=== PATIENT | female | born 1945 | race Caucasian/White ===

== ENCOUNTER → 2018-04-01 | Outpatient (REF) ==
[2018-04-01 14:02] LABS: HEMATOCRIT 32.2 % (36.0-47.0); HEMOGLOBIN 10.6 g/dl (12.0-15.5); MEAN CORPUSCULAR HEMOGLOBIN 29.1 pg (27.0-33.0); MEAN CORPUSCULAR HGB CONC 32.9 g/dl (32.0-36.5); MEAN CORPUSCULAR VOLUME 88.5 fl (80.0-96.0); PLATELET COUNT, AUTOMATED 230 10^3/uL (150-450); RED BLOOD COUNT 3.64 10^6/uL (4.00-5.40); RED CELL DISTRIBUTION WIDTH 12.9 % (11.5-14.5)
[2018-04-01 15:18] LABS: ANION GAP 10 MEQ/L (8-16); BLOOD UREA NITROGEN 17 MG/DL (7-18); CALCIUM LEVEL 7.8 MG/DL (8.8-10.2); CARBON DIOXIDE LEVEL 26 MEQ/L (21-32); CHLORIDE LEVEL 103 MEQ/L (98-107); CREATININE FOR GFR 0.94 MG/DL (0.55-1.30); GLOMERULAR FILTRATION RATE > 60.0 (>39); GLUCOSE, FASTING 329 MG/DL (70-100); POTASSIUM SERUM 4.1 MEQ/L (3.5-5.1); SODIUM LEVEL 139 MEQ/L (136-145)
== END ==
DX: E03.9 Hypothyroidism, unspecified (principal)

== ENCOUNTER → 2018-04-07 | Outpatient (REF) | payer MEDICAID, MEDICARE, SELFPAY ==
[~2018-04-07] MED LIST: ASPIRIN PO; ATENPOW PO; CRES20TA PO; FURO20TA PO; GLIM2TAB PO; ISOSPOW PO; KLOR CON PO; LANTINJ4 SC; NITRO PATCH TOP; NITRO PO; NOVALOG INSULIN INJ; PERC7.5T12 PO; PLAVIX PO; PREVACID PO; SENO8.6T9 PO; XARE20TA PO
[2018-04-07 10:20] LABS: HEMATOCRIT 38.3 % (36.0-47.0); HEMOGLOBIN 12.2 g/dl (12.0-15.5); MEAN CORPUSCULAR HEMOGLOBIN 28.8 pg (27.0-33.0); MEAN CORPUSCULAR HGB CONC 31.9 g/dl (32.0-36.5); MEAN CORPUSCULAR VOLUME 90.5 fl (80.0-96.0); PLATELET COUNT, AUTOMATED 322 10^3/uL (150-450); RED BLOOD COUNT 4.23 10^6/uL (4.00-5.40); WHITE BLOOD COUNT 10.1 10^3/uL (4.0-10.0)
[2018-04-07 10:46] LABS: BLOOD UREA NITROGEN 17 MG/DL (7-18); CALCIUM LEVEL 8.9 MG/DL (8.8-10.2); CARBON DIOXIDE LEVEL 28 MEQ/L (21-32); CHLORIDE LEVEL 100 MEQ/L (98-107); CREATININE FOR GFR 0.89 MG/DL (0.55-1.30); GLOMERULAR FILTRATION RATE > 60.0 (>39); GLUCOSE, FASTING 343 MG/DL (70-100); POTASSIUM SERUM 4.5 MEQ/L (3.5-5.1); SODIUM LEVEL 136 MEQ/L (136-145)
--- NOTE | 2018-04-07 15:48 | REP ---
Left femur series: Two views. History: Femur fracture. Findings: Left knee arthroplasty and proximal femoral pins are noted. A lateral screw plate fixation device is seen along the femoral diaphysis transfixing the mid shaft fracture in good alignment. Lateral skin john are noted. Vascular calcifications are seen. Electronically Signed by Chang Muñoz MD 04/07/2018 04:14 P
--- NOTE | 2018-04-07 15:48 | REP ---
LEFT HIP, TWO VIEWS: HISTORY: Fracture. COMPARISON: 01/05/2013. The patient is status post ORIF of a distal femur fracture. An intramedullary jake and nail and lateral fixation plate and screws are present. There is no acute fracture or dislocation. There is minimal narrowing of the joint space. Surgical john are present in the overlying soft tissue. IMPRESSION: The patient is status post ORIF of a fracture of the distal femur. Electronically Signed by Jose Barbosa MD 04/07/2018 03:55 P
--- NOTE | 2018-04-07 15:48 | REP ---
Left knee series: Three views. History: Left hip fracture. Findings: Three views of the left knee demonstrate screw plate fixation device in the distal femur applied laterally. There is a chip fracture fragment of the anterior cortex of the distal femur visible on lateral film. A left knee arthroplasty is noted. Distal diaphyseal fracture component is visible at the top edge of the field of view. Vascular calcifications noted. Impression: Screw plate fixation device in place in the distal femur. Nondisplaced fracture fragments in the distal femur. A previously placed left knee arthroplasty. Electronically Signed by Chang Muñoz MD 04/07/2018 04:14 P
== END ==
PROVIDERS: ATTEND Internal Medicine
DX: Z47.89 Encounter for other orthopedic aftercare (principal); Z98.890 Other specified postprocedural states; M25.552 Pain in left hip

== ENCOUNTER → 2019-06-09 | Outpatient (CLI) | payer MEDICARE ==
--- NOTE | 2019-06-09 12:24 | REP ---
Clinical: Symptoms related to atherosclerotic disease and intermittent claudication. Technique: Real time starr scale and color Doppler evaluation of the bilateral lower extremity arterial vasculature using linear high frequency transducer. Findings: Starr scale and color images demonstrate moderate to severe bilateral partially calcified atheromatous plaquing. The right mid superficial artery appears occluded with downstream revascularization. Small areas of occlusion are also identified throughout the right anterior tibial artery. There is occlusion to the origin of the left superficial femoral artery with subsequent downstream revascularization. Doppler interrogation also demonstrates monophasic wave patterns bilaterally below the level of the common femoral artery. Peak systolic velocities (cm/sec) RIGHT LEFT DIANA 0.82 0.64 Common femoral artery 68.9 45.5 Profunda femoris 87.6 122 SFA (proximal) 36.1 occluded SFA (mid) occluded 50.4 SFA (distal) 21.6 25.6 Popliteal artery 27.4 18.9 KARLY (prox.) 14.5 18.7 Tibioperoneal trunk 32.9 26.1 SILICATOR (prox.) 27.9 33.9 SILICATOR (distal) 54.6 33.9 KARLY (distal) 12.2 17.1 Impression: Moderate to severe mixed atheromatous plaquing noted bilaterally with areas of occlusion noted at the right mid superficial femoral artery, origin of the left superficial femoral artery, and along the right anterior tibial artery. Electronically Signed by Markos Raymundo MD 06/09/2019 12:15 P
== END ==
LOC: M RAD 10:24
PROVIDERS: ATTEND Physician Assistant
DX: I73.9 Peripheral vascular disease, unspecified (principal)

== ENCOUNTER → 2019-07-26 | Outpatient (CLI) | payer MEDICARE ==
[~2019-07-26] MED LIST changes: +HEPARIN 1,000 UNITS/ML 10ML VIAL (FOR RADIOLOGY& DIALYSIS ONLY)(J1644-10) As Ordered ONE; +ISOVUE-300 61% 50ML VIAL (Q9967) As Ordered ONE; +LIDOCAINE 1% MDV 20ML VIAL As Ordered ONE; +MIDAZOLAM INJ 2 MG/2 ML VIAL (J2250) As Ordered ONE; +fentaNYL 100 MCG/2 ML INJECTION (J3010) As Ordered ONE
== END ==
LOC: M IRPRO 06:20
PROVIDERS: ATTEND Surgery Vascular Surgery
DX: I73.9 Peripheral vascular disease, unspecified (principal); Z53.8 Procedure and treatment not carried out for other reasons

== ENCOUNTER → 2019-08-23 | Outpatient (CLI) | payer MEDICARE ==
[~2019-08-23] MED LIST changes: +ACETAMINOPHEN 325 MG TAB As Ordered ONE; -HEPARIN 1,000 UNITS/ML 10ML VIAL (FOR RADIOLOGY& DIALYSIS ONLY)(J1644-10) As Ordered ONE; +HumaLOG INSULIN (NovoLOG) PER UNIT SC ONE; -ISOVUE-300 61% 50ML VIAL (Q9967) As Ordered ONE; +ISOVUE-300 61% 50ML VIAL As Ordered ONE; -MIDAZOLAM INJ 2 MG/2 ML VIAL (J2250) As Ordered ONE; +MIDAZOLAM INJ 2MG/2ML VIAL (J2250 PER 1MG) As Ordered ONE
[2019-08-23 07:32] LABS: HEMATOCRIT 47.6 % (36.0-47.0); HEMOGLOBIN 15.6 g/dl (12.0-15.5); MEAN CORPUSCULAR HEMOGLOBIN 28.1 pg (27.0-33.0); MEAN CORPUSCULAR HGB CONC 32.8 g/dl (32.0-36.5); MEAN CORPUSCULAR VOLUME 85.8 fl (80.0-96.0); PLATELET COUNT, AUTOMATED 301 10^3/uL (150-450); RED BLOOD COUNT 5.55 10^6/uL (4.00-5.40); WHITE BLOOD COUNT 9.5 10^3/uL (4.0-10.0)
[2019-08-23 08:04] LABS: ALBUMIN 3.8 GM/DL (3.2-5.2); BILIRUBIN,TOTAL 0.4 MG/DL (0.2-1.0); CALCIUM LEVEL 9.2 MG/DL (8.8-10.2); CREATININE FOR GFR 1.13 MG/DL (0.55-1.30); GLOMERULAR FILTRATION RATE 50.2 (>39); POTASSIUM SERUM 4.3 MEQ/L (3.5-5.1); TOTAL PROTEIN 7.9 GM/DL (6.4-8.2)
--- NOTE | 2019-08-23 08:53 | ROOPDOC ---
[facility] Report Of Operation Report of Operation DATE OF PROCEDURE: 08/23/19 PREPROCEDURE DIAGNOSES: Atherosclerosis of the [place] arteries with lifestyle limiting claudication left lower extremity POSTPROCEDURE DIAGNOSES: Same PROCEDURE: 1. Ultrasound-guided access right common femoral artery 2. Aortoiliofemoral arteriogram with left lower extremity runoff from left common femoral artery selection 3. Attempt to cross chronic total occlusion left superficial femoral artery, a borted 4. Mynx closure right common femoral artery SURGEON: Radha Moreno MD ANESTHESIA: Local anesthesia 6 mL lidocaine. Moderate intravenous conscious sedation was supervised by Dr. Moreno. The patient was independently monitored by registered nurse assigned to the Department of radiology using automated blood pressure, EKG, and pulse oximetry. The detail sedation record is permanently stored in the hospital information system. The following is the brief sedation record: Start time 08:00, stop time 08:19, Versed 1 mg IV, fentanyl 25 g IV. CONTRAST: 28 mL Isovue-300 INDICATION FOR PROCEDURE: This is a very pleasant 73-year-old patient with peripheral vascular disease, tobacco abuse history, and lifestyle limiting claudication of the left lower extremity. She can only walk short distances before she has cramping calf pain that limits her ability to do her daily activi ties. She is still smoking. Risks benefits and alternatives to an arteriogram with potential intervention of the left lower extremity were explained to the patient she is agreeable to proceed. Informed consent was obtained. INTERPRETATION: 1. The distal aorta and iliac segments are patent but heavily calcified and ectatic. No flow-limiting stenoses are noted. However, the calcium is dense and regular. The left common femoral artery has significant posterior wall plaque that is bulky and heavily calcified. I estimate this to be approximately a 40- 50% stenosis. The profunda is a large and widely patent and has multiple collateral vessels through the thigh down to the above-knee popliteal artery which is patent and has some retrograde flow up to the distal SFA. The proximal SFA to this level distally in the SFA is chronically occluded and heavily calcified. We were unable to cross this occlusion. The popliteal artery has mild calcified disease but is otherwise patent with no flow-limiting stenoses noted, although it is partially obscured by hardware from orthopedic surgery. There is 3 vessel runoff in the lower extremity. The main runoff is through the posterior tibial artery, which is large and widely patent and feels the majority of the plantar flow in the foot. The peroneal artery is diminutive and has calcification throughout, but it does have flow to the ankle. The anterior tibial artery does provide flow as well. It is widely patent proximally, but then tapers off in the mid distal portions with calcifications and ectasia, and has more sluggish flow distally to the ankle with limited runoff into the foot. REPORT OF OPERATION: Patient was brought to the angiographic suite in stable condition. Her bilateral groins were prepped and draped in a sterile fashion. A timeout was performed. Sedation was administered without complication. Local anesthesia was administered to the skin and subcutaneous tissue over the right groin. A microneedle was used to access the right common femoral artery under ultrasound guidance. A wire was passed through this access under fluoroscopic guidance. The needle was removed and a micro-sheath, 4 Iranian, was placed over the wire using the Seldinger technique and flushed with saline. Through this access, we advanced a Glidewire and an Omni flushed catheter into the distal aorta. Aortoiliofemoral arteriograms were performed. Please see interpretation above. We then advanced the catheter up and over the bifurcation over the Glidewire into the left common femoral artery. From the selection, left lower extremity runoff was performed. Please see interpretation above. The plaque in the common femoral artery and the origin of the SFA in the proximal and mid acetate was heavily calcified and his calcium was easily visible on non- subtracted fluoroscopy. We attempted to navigate the wire through the chronic total occlusion at the origin of the SFA to see if we could cross the SFA occlusion, but ultimately despite aggressive attempts were unsuccessful. This was aborted. We then exchange the sheath over the wire for 5 Iranian sheath, flushed the sheath with saline, and then deployed a Mynx closure device under fluoroscopic guidance with good hemostasis. Pressure was held for 10 minutes for good hemostasis and sterile dressings were applied. The patient was taken to recovery in stable condition. She tolerated the procedure and the sedation well. ESTIMATED BLOOD LOSS: Approximately 5 mL. COMPLICATIONS: None. PLAN: We will see the patient back within the week to check her groin access site and discuss options with her. At this point, although she does have a chronic total occlusion of the origin of the SFA through to the mid distal SFA, she does have excellent collateral circulation through the profunda to the lower leg and 3 vessel runoff. I believe if she would quit smoking, her ambulatory distance would increase, and this would further benefit from a walking program. We will discuss this option with her. The alternative is a left common femoral endarterectomy and a left femoral to above-knee or below-knee bypass, both options are available, but I feel smoking cessation and a walking program would be a good first effort on the patient's part to improve her claudication. We will discuss this with her in clinic. She can resume her home medications and diet. RADHA MORENO MD August 23, 2019 08:53
[2019-08-23 11:52] VITALS: BP 160/72
== END ==
LOC: M IRPRO 06:57
PROVIDERS: ATTEND Surgery Vascular Surgery
DX: I70.222 Atherosclerosis of native arteries of extremities with rest pain, left leg (principal); I70.212 Atherosclerosis of native arteries of extremities with intermittent claudication, left leg; I70.92 Chronic total occlusion of artery of the extremities; F17.210 Nicotine dependence, cigarettes, uncomplicated
CPT/HCPCS: 36246; 75630; 75774; 80053; 85027; 99152; C1760; C1769; C1887; C1894; G0269; J1644; J2250; J3010; Q9967

== ENCOUNTER → 2019-11-01 | Outpatient (CLI) | payer MEDICARE ==
[~2019-11-01] MED LIST changes: -ACETAMINOPHEN 325 MG TAB As Ordered ONE; +ALEV220T22 PO; +ASPI81TA86 PO; +ATEN100T PO; +DILA2TAB6 PO; +DOCU100C16 PO; +DONETAB5 PO; +EZET10TA21 PO; +FURO40TA2 PO; +GABA-843 PO; +HEPA1INJ81 IV; -HumaLOG INSULIN (NovoLOG) PER UNIT SC ONE; +INSUDET SC; +INSUH10VL SC; +ISOS60TA2 PO; -ISOVUE-300 61% 50ML VIAL As Ordered ONE; +KLOR20TA42 PO; -LIDOCAINE 1% MDV 20ML VIAL As Ordered ONE; -MIDAZOLAM INJ 2MG/2ML VIAL (J2250 PER 1MG) As Ordered ONE; +NITR0.4D6 TD; +NITR0.4S14 SL; +PERCOCET PO; +PLAV1TAB2 PO; +PREV30TA3 PO; +ROSU20TA5 PO; +TRUL10IN SC; -fentaNYL 100 MCG/2 ML INJECTION (J3010) As Ordered ONE
--- NOTE | 2019-11-02 02:26 | REP ---
BILATERAL LOWER EXTREMITY DUPLEX DOPPLER ARTERIAL ULTRASOUND: Real-time ultrasound evaluation and duplex Doppler interrogation of bilateral lower extremity arterial systems is performed. DIANA right 0.96 and left 0.71. There is moderate diffuse partially calcified plaque throughout the right common femoral artery through the popliteal artery with heavily calcified plaque in the mid to distal superficial femoral artery. There appears to be moderately severe luminal narrowing of the distal superficial femoral artery. Collateral artery is seen just proximal to this heavily calcified segment. Biphasic waveforms are seen in the right common femoral and proximal superficial femoral artery with monophasic waveforms distal to that. Distal anterior tibial artery could not be visualized. On the left, there is significant plaque from common femoral artery through the popliteal artery. The superficial femoral artery is occluded proximally with revascularization of the distal aspect and slow flow distal to that. There are diffuse monophasic waveforms in the left lower extremity. Findings are quite similar to the prior study of 06/09/2019. RIGHT PEAK LEFT PEAK SYSTOLIC SYSTOLIC VELOCITY VELOCITY Common femoral artery 97 cm/s 43 cm/s Profunda 99 78 Proximal SFA 47 Occluded Mid SFA 45 Occluded Distal SFA 51 79 Popliteal 29 17 Proximal KARLY 12 18 Tibioperoneal trunk 29 23 Proximal JAWBONE BREAKER 51 41 Distal JAWBONE BREAKER 64 24 Distal KARLY Not visualized 12 Electronically Signed by David Starr MD 11/02/2019 11:39 P
== END ==
LOC: M RAD 13:18
PROVIDERS: ATTEND Surgery Vascular Surgery
DX: I70.213 Atherosclerosis of native arteries of extremities with intermittent claudication, bilateral legs (principal); F17.210 Nicotine dependence, cigarettes, uncomplicated

== ENCOUNTER → 2019-11-18 | Outpatient (CLI) | payer MEDICARE ==
--- NOTE | 2020-01-07 11:22 | REP ---
BILATERAL LOWER EXTREMITY DOPPLER VENOUS ULTRASOUND: HISTORY: Vein mapping study lower extremities, rule out DVT. The report is delayed because of a malware attack on this facility. FINDINGS: The deep veins are anechoic and fully compressible from the groin to the popliteal fossa in both lower extremities on two dimensional scanning. Color flow and spectral Doppler interrogation show no evidence of DVT. RIGHT LOWER EXTREMITY VEIN DIAMETER CHART: Anterior accessory length 12.9 cm Junction diameter 3.1 mm Mid-thigh diameter 1.6 mm Greater saphenous vein junction diameter 3.8 mm Mid-thigh 2.8 mm Knee 1.5 mm Proximal calf 1.6 mm Mid-calf 1.5 mm Distal calf 1.0 mm Lesser saphenous vein proximal calf 1.0 mm Mid-calf 1.3 mm Distal calf 1.4 mm LEFT LOWER EXTREMITY VEIN DIAMETER CHART: Anterior accessory length 16.5 cm Junction diameter 2.0 mm Mid-thigh diameter 1.0 mm Greater saphenous vein junction diameter 3.6 mm Mid-thigh 2.5 mm Knee 1.9 mm Proximal calf 0.6 mm Mid-calf 0.9 mm Distal calf 0.6 mm Lesser saphenous vein proximal calf 0.9 mm Mid-calf 1.1 mm Distal calf 0.8 mm MTDD
== END ==
LOC: M RAD 08:00
PROVIDERS: ATTEND Surgery Vascular Surgery
DX: I70.213 Atherosclerosis of native arteries of extremities with intermittent claudication, bilateral legs (principal); R09.89 Other specified symptoms and signs involving the circulatory and respiratory systems; M79.605 Pain in left leg; M79.604 Pain in right leg

== ENCOUNTER → 2020-02-09 | Outpatient (CLI) | payer MEDICARE | LOC: M LABSMTC 09:37 | PROVIDERS: ATTEND Anesthesiology | DX: Z01.812 Encounter for preprocedural laboratory examination (principal); Z20.828 Contact with and (suspected) exposure to other viral communicable diseases | CPT/HCPCS: C9803; U0003 ==

== ENCOUNTER 2020-02-14 07:26 | Inpatient (IN) | payer MEDICARE ==
--- NOTE | 2020-01-28 14:24 | HPEPDOC ---
[facility] Medical History & Physical Date of Admission Feb 14, 2020 Date of Service: Feb 14, 2020 History and Physical Vascular Surgery Dr Moreno. HISTORY OF PRESENT ILLNESS: This is a very pleasant 74-year-old patient with atherosclerosis in the [place] arteries and lifestyle limiting claudication in t he left lower extremity. The patient has a known occlusion of the left superficial femoral artery that reconstitutes [id number] through collaterals. Unable to cross this with an endovascular procedure, and after the procedure we discussed with her options for walking program to improve collateral circulation versus a left femoral popliteal bypass. At that time, the patient would prefer to to a walking program and see if she can improve flow. However, despite her best efforts to walk at least 800 feet 3 times a week, she says that claudication is very lifestyle limiting and she would rather discuss options for bypass. We obtained a vein mapping of the bilateral lower extremities to see if she has suitable vein for vein bypass but her vein is <3mm and not suitable for bypass, so we discussed with her options for either PTFE or cadaver vein bypass. Plan for Femoral PTFE bypass above the knee. Risks benefits and alternatives were explained and she is agreeable. Informed consent obtained. PAST MEDICAL HISTORY: Hypertension Diabetes Heart Disease Chronic Obstructive Pulmonary Disease (COPD) PAST SURGICAL HISTORY: Stent, Tubal Ligation, Hip Replacement, Knee Replacement, Repair Broken Femur With Plate And Screws, Lle Angiogram 08/23/19 SOCIAL HISTORY: former smoker FAMILY HISTORY: HTN, DM, CAD ALLERGIES: Please see below. REVIEW OF SYSTEMS: As noted in HPI otherwise 11 pt ROS unremarkable. HOME MEDICATIONS: Please see below. PHYSICAL EXAMINATION: Const: Appears medically stable. No signs of apparent distress present. Head/Face: Normal on inspection. ENMT: Tympanic membranes: intact. External nose WNL. Neck: Supple, no carotid bruits present Resp: No wheezing. Clear to auscultation bilaterally. CV: Rate is regular. Rhythm is regular. Abdomen: Bowel sounds are positive. Abdomen is soft, nontender, and nondistended. Lymph: No palpable or visible regional lymphadenopathy. Musculo:Gait steady, distal pulses not palpable. Monophasic signals Skin:No rashes or lesions Neuro:Alert and oriented x3, moves all extremities equally, no focal neurologic deficits noted. Psych: Pleasant and cooperative Imaging: Vein mapping, saphenous ronda is <3mm diffusely, and mostly 0.5-2 mm. Assesment/Plan: Very pleasant 74yo with PVD and lifestyle limiting claudication Plan for left lower extremity femoral to above knee bypass, possible femoral endarterectomy with PTFE as per Dr Moreno. Informed consent and transfusion consent placed on chart. Admission labs pending. Hold plavix 5 days preop Medical cardiac clearance, Stress test placed with chart. Ancef 2 gm IV preop. Home Medications Scheduled Aspirin (Aspir 81) 81 Mg Tablet.dr, 81 MG PO DAILY Atenolol (Atenolol) 100 Mg Tablet, 100 MG PO DAILY Clopidogrel Bisulfate (Plavix) 75 Mg Tablet, 75 MG PO DAILY Donepezil Hcl (Donepezil HCl Odt) 5 Mg Tab.rapdis, 5 MG PO DAILY Dulaglutide (Trulicity) 0.75 Mg/0.5 Ml Pen.injctr, Unknown Dose SC QWEEK Friday Furosemide (Furosemide) 40 Mg Tablet, 40 MG PO DAILY Gabapentin (Gabapentin) 300 Mg Capsule, 300 MG PO BID Insulin Human Lispro (Novolog) 100 Unit/1 Ml Vial, 1 UNITS SC BIDP sliding scale Isosorbide Mononitrate (Isosorbide Mononitrate ER) 60 Mg Tab.er.24h, 60 MG PO DAILY Lansoprazole (Prevacid) 30 Mg Tab.rap.dr, 30 MG PO DAILY Nitroglycerin (Nitroglycerin Patch) 0.4 Mg/Hr Patch.td24, Unknown Dose TD DAILY Potassium Chloride (Klor-Con M20) 20 Meq Tab.er.prt, 20 MEQ PO DAILY Rosuvastatin Calcium (Rosuvastatin Calcium) 20 Mg Tablet, 20 MG PO QHS Scheduled PRN Naproxen Sodium (Aleve) 220 Mg Tablet, 220 MG PO PRN PRN for PAIN Nitroglycerin (Nitroglycerin) 0.4 Mg Tab.subl, 0.4 MG SL PRN PRN for CHEST PAIN Allergies Coded Allergies: Contrast Media (Verified Allergy, Unknown, RASH, 01/31/20) niacin (Verified Allergy, Unknown, 01/31/20) A-FIB/CHADSVASC A-FIB History Current/History of A-Fib/PAF?: No Current PO Anticoag Therapy: No Joanne Calhoun Jan 28, 2020 14:22
[~2020-02-14] VITALS: Ht 157.5 cm; Wt 85.3 kg
[~2020-02-14 07:26] MED LIST changes: -DILA2TAB6 PO; -DOCU100C16 PO; -EZET10TA21 PO; -HEPA1INJ81 IV; -INSUDET SC; +LIDOCAINE 1% MDV 20ML VIAL SQ PRN; +LR 1,000 ML IV ONE; -PERCOCET PO; +ceFAZolin SOD 2 GM in IV 1 EA IV ONE
[2020-02-14] MEDS ORDERED: ROCURONIUM BROMIDE 50 MG/5 ML VIAL As Ordered ONE ×2 (08:02→12:29)
[2020-02-14] MEDS ORDERED: propofoL 200 MG/20 ML VIAL As Ordered ONE (08:02)
[2020-02-14] MEDS ORDERED: LIDOCAINE 2% 100MG/5ML SDV (FOR ANES.) As Ordered ONE (08:02)
[2020-02-14] MEDS ORDERED: MIDAZOLAM INJ 2MG/2ML VIAL (J2250 PER 1MG) As Ordered ONE (08:03)
[2020-02-14] MEDS ORDERED: fentaNYL 250 MCG/5 ML INJECTION (J3010) As Ordered ONE (08:03)
[2020-02-14 08:27] LABS: HEMATOCRIT 51.5 % (36.0-47.0); HEMOGLOBIN 16.6 g/dl (12.0-15.5); MEAN CORPUSCULAR HGB CONC 32.2 g/dl (32.0-36.5); MEAN CORPUSCULAR VOLUME 86.8 fl (80.0-96.0); PLATELET COUNT, AUTOMATED 277 10^3/uL (150-450); RED BLOOD COUNT 5.93 10^6/uL (4.00-5.40); WHITE BLOOD COUNT 10.5 10^3/uL (4.0-10.0)
[2020-02-14 08:38] LABS: INR 0.96
[2020-02-14 08:39] LABS: PARTIAL THROMBOPLASTIN TIME 26.9 SECONDS (24.2-38.5)
[2020-02-14 08:48] LABS: CREATININE FOR GFR 1.05 MG/DL (0.55-1.30); GLOMERULAR FILTRATION RATE 54.5 (>39); POTASSIUM SERUM 4.5 MEQ/L (3.5-5.1)
[2020-02-14] MEDS ORDERED: BUPIVACAINE/EPIN 0.5% 30 ML VIAL As Ordered ONE (08:55)
[2020-02-14] MEDS ORDERED: HEPARIN SOD (PORCINE) 5000UNITS/ML 1ML VIAL/SYRINGE As Ordered ONE ×3 (08:56→13:09)
[2020-02-14] MEDS ORDERED: THROMBIN SOLN 20,000 UNITS KIT As Ordered ONE (08:56)
[2020-02-14] MEDS ORDERED: ISOVUE-300 61% 50ML VIAL As Ordered ONE (08:58)
[2020-02-14] MEDS ORDERED: ACETAMINOPHEN 1000MG 100ML IV BTL (OFIRMEV) (J0131 PER 10MG) As Ordered ONE (14:09)
[2020-02-14] MEDS ORDERED: METOCLOPRAMIDE INJ 10MG/2ML VIAL (J2765 PER 1) As Ordered ONE (14:09)
[2020-02-14] MEDS ORDERED: ceFAZolin 1GM VIAL (J0690 PER 500MG) As Ordered ONE (14:13)
[2020-02-14] MEDS ORDERED: SUGAMMADEX SODIUM 500 MG/5 ML VIAL (BRIDION) As Ordered ONE (14:31)
--- NOTE | 2020-02-14 14:56 | ROOPDOC ---
[facility] Report Of Operation Report of Operation DATE OF PROCEDURE: 02/14/20 PREPROCEDURE DIAGNOSES: Atherosclerosis of the [place] arteries with lifestyle limiting claudication left lower extremity POSTPROCEDURE DIAGNOSES: Same PROCEDURE: 1. Left femoral endarterectomy with Xenosure patch angioplasty 2. Left femoral to above-knee popliteal bypass with 6 mm ringed PTFE SURGEON: Radha Moreno MD ANESTHESIA: Gen. anesthesia and local INDICATION FOR PROCEDURE: This is a very pleasant 74-year-old patient with severe lifestyle limiting left lower extremity claudication due to atherosclerosis in the [place] arteries, and we were not able to provide an endovascular option to revascularize. We therefore discussed the option for a left femoral endarterectomy, left femoral to above-knee popliteal bypass with PTFE since the patient's saphenous vein is not suitable sites for bypass. Risks benefits and alternatives were explained and she is agreeable to proceed. Informed consent was obtained. REPORT OF OPERATION: Patient was brought to the OR in stable condition. General anesthesia and antibiotics were administered without complication. A Holloway catheter was placed. Her left groin and left lower extremity were prepped and draped in a sterile fashion. Ioban was placed over the skin. A timeout was performed. An oblique incision was made over the inguinal ligament and carried down to subcutaneous tissue with Bovie cautery. Bridging veins were suture ligated and divided. The patient is obese, and had a very deep groin, but we continued our dissection down through the fascia to the femoral sheath. This was opened longitudinally and the vessels were skeletonized carefully. There was a significant amount of scar tissue, possibly from previous endovascular interventions, but we were able to separate the artery and vein safely. Vesseloops were placed around the profunda the SFA which was occluded, some collaterals, the circumflex vessels, and a place was cleared for clamp placement proximally. We noted extremely calcified plaque in the femoral during our dissection. Next, we turned our attention to the popliteal artery exposure. A longitudinal incision was made over the distal medial thigh and carried down to the subcutaneous tissue with Bovie cautery taking care to preserve the saphenous vein. Bridging veins were suture ligated and divided. We continued our dissection down to the fascia which was incised longitudinally. We then retracted the muscle posteriorly. The patient had copious amount of adipose tissue behind the knee, which made the dissection of her popliteal artery difficult, but eventually we were able to skeletonized the artery proximally and distally within the incision. Vesseloops were placed proximally and distally. Next, 5000 units of heparin was given by anesthesia and allowed to circulate and was redosed at 1 hour 1000 units of heparin. A clamp was placed proximally in the common femoral artery and the Vesseloops the groin were secured. A longitudinal incision was made from the proximal SFA to the proximal common femoral artery and copious amounts of calcified near occlusive plaque were removed from the femoral vessel. We also endarterectomized the proximal profunda and its branches. After we were satisfied with her endarterectomy, we irrigated with heparinized saline. All loose intima was removed. We then anastomosed a patch in a running fashion with 5-0 Prolene hemostatic suture, and before the final sutures are placed with flushed inflow and outflow artery and irrigated with heparinized saline. The final sutures are placed and flow was restored and good hemostasis was noted. Next, a 6 mm ringed PTFE graft was tunneled from the groin to the knee along the medial thigh in the subcutaneous tissue. The proximal end was beveled for anastomosis. We again secured our femoral clamp and Vesseloops and an arteriotomy was made in the patch. We anastomosed the proximal end of the graft to the patch with a running 5-0 Prolene hemostatic suture. Before the final sutures are placed, we flushed inflow and outflow arteries and clamp the graft. We irrigated with heparinized saline and placed the final sutures. Good hemostasis at the proximal anastomosis was noted. We then beveled the graft for the distal anastomosis after cutting it to the appropriate length. The Vesseloops at the popliteal vessels were secured and an arteriotomy was made. We then anastomosed the graft to the artery in a tension-free end-to-side anastomosis with running 5-0 Prolene hemostatic suture. Before the final sutures are placed, we flushed the inflow in the outflow of the popliteal artery, and flushed through the graft. We irrigated with heparinized saline. We place her final sutures and flow was restored. Good hemostasis was noted. The patient had a palpable pulse at the DP and PT. She had a good Doppler signal at the popliteal distal to the bypass and proximal to the bypass. She had a good Doppler signal in the profunda. We then irrigated both incisions with copious amounts of saline. Local anesthesia was administered to skin and subcutaneous tissue around the incisions. The deep tissues at the popliteal were approximated with running 2-0 Vicryl suture in 3 layers. We then approximated the dermal layer with interrupted 3-0 Vicryl suture. The skin was closed with skin john. At the groin, the femoral sheath was approximated with 2-0 Vicryl suture. The fascia was closed in 3 layers with running 2-0 Vicryl suture. The dermal layer was approximated with interrupted 3-0 Vicryl suture. The skin was closed with skin john. Both incisions were cleaned and dried. 4 x 4's and Tegaderms were placed at the final dressing. Holloway catheter was removed. The patient was then allowed to awaken from anesthesia was taken to recovery in stable condition. She tolerated the procedure and the anesthesia well. ESTIMATED BLOOD LOSS: Approximately 50 mL. COMPLICATIONS: None. PATHOLOGY: Left femoral plaque sent for pathology PLAN: Patient will be admitted to the hospitalist service, for [facility]. Okay to resume all home medications but we will hold on resuming Plavix until tomorrow. We'd like to make sure the patient is not having too much bruising or bleeding postprocedure. She will be on bed rest overnight, then activity as tolerated starting in the morning. Her Holloway was DC'd after the case and it is okay for straight cath every 6 hours when necessary if no urine output. Analgesia when necessary. We will see how she does getting up and around, and we'll order physical therapy if necessary. Reshape the opportunity to participate in care of this patient. RADHA MORENO MD Feb 14, 2020 14:56
[2020-02-14] MEDS ORDERED: HYDROmorphone 2 MG TAB PO PRN (15:00)
[2020-02-14] MEDS ORDERED: diazePAM 5 MG TAB PO PRN (15:00)
[2020-02-14] MEDS ORDERED: ONDANSETRON 4MG/2ML VIAL IV PRN ×2 (15:00→15:30)
[2020-02-14] MEDS ORDERED: PERCOCET 5MG/325MG TAB PO PRN (15:00)
[2020-02-14] MEDS ORDERED: HYDROMORPHONE HCL 0.5 MG/ 0.5 ML SYRINGE (J1170 PER 1) IV PRN (15:30)
[2020-02-14] MEDS ORDERED: fentaNYL 100 MCG/2 ML INJECTION (J3010) IV PRN (15:30)
[2020-02-14] MEDS ORDERED: oxyCODONE 5MG TAB PO PRN (15:30)
[2020-02-14] MEDS ORDERED: LR 1,000 ML IV SCH (15:30)
--- NOTE | 2020-02-14 16:01 | HPEPDOC ---
[facility] Medical History & Physical Date of Admission Feb 14, 2020 Date of Service: Feb 14, 2020 History and Physical CHIEF COMPLAINT: Admitted for planned left femoral endarterectomy HISTORY OF PRESENT ILLNESS: 74F PMHx HTN, DM, CAD, COPD, LE claudication. Her lower extremity claudication has been limiting her lifestyle and has not improved despite walking program to improve circulation. Taken to the OR by vascular surgery Dr. Catalan for planned left femoral endarterectomy with xenosure patch angioplasty as well as left femoral to above-knee popliteal bypass. I was asked to see the patient postop for medical admission. From chart review it appears that the patient has tried walking programs but has been unsuccessful prior to this surgery and the claudication has progressed limiting her mobility and affecting her lifestyle which warranted this intervention. History was obtained from chart review as patient was too sleepy postanesthesia to provide me with a full and detailed history. Patient was awake enough to share with me some of her medical history as above. PAST MEDICAL HISTORY: HTN DM CAD COPD PAST SURGICAL HISTORY: CAD status post stenting Tubal ligation Hip and knee replacement Broken femur with plate and screws SOCIAL HISTORY: Denies alcohol use Active tobacco smoker and does not use home oxygen. Noted to have denied smoking, but remembers of staff Denies illicit drug use FAMILY HISTORY: Coronary artery disease, diabetes mellitus, hypertension ALLERGIES: Please see below. REVIEW OF SYSTEMS: 12 system review of systems is negative respiratory HPI. HOME MEDICATIONS: Please see below. PHYSICAL EXAMINATION: Constitutional: Sleepy postanesthesia but in no distress ENT: Sclera are clear. Mucosa is moist. Respiratory: Mild wheezing throughout both lung leyva left greater than right. No respiratory distress. No use of accessory muscles. On oxygen by nasal cannula Cardiovascular: RRR S1 and S2 are normal, no murmur Gastrointestinal: Abdomen is soft and obese, non distended, non tender, BS present. Musculoskeletal: No lower extremity edema. Neurologic: No focal neurological deficit. Mental Status: Oriented x3 Skin: Warm, dry. Fresh dressing in place left groin area. LABORATORY DATA: See below. MICROBIOLOGY: Please see below. ASSESSMENT/PLAN 74F PMHx HTN, DM, CAD, COPD, [id number] limiting LE claudicationpost op by vascular surgery Dr. Catalan for left femoral endarterectomy with xenosure patch angioplasty as well as left femoral to above-knee popliteal bypass. Patient admitted to med/surge unit for postoperative evaluation and management. # Lower extremity claudication: Status post left femoral endarterectomy and left femoral to above-knee popliteal bypass on 02/14/2020. Surgical in pain management per vascular surgery. # COPD: Some wheezing on exam. DuoNebs when necessary. # Hypertension: Continue home meds. Monitor and titrate. # Diabetes: ISS. Frequent Accu-Cheks. Hypoglycemic precautions. A1c, lipid panel. Continue home dose gabapentin for diabetic neuropathy. # CAD: Continue aspirin and statin. Vascular okay to resume Plavix tomorrow. May need lifelong dual antiplatelet therapy given extent of PAD. Cardiac stenting was more than 5 years ago. Patient should follow up with cardiology on need for continue dual antiplatelet therapy. # History of CHF: Euvolemic on exam. Continue Lasix. Continue isosorbide. Continue atenolol # DVT prophylaxis: Heparin start in the morning A [facility] Hospitalist Vital Signs Vital Signs Date Time Temp Pulse Resp B/P (MAP) Pulse Ox O2 Delivery O2 Flow Rate FiO2 02/14/20 15:35 70 18 143/67 (92) 97 Nasal Cannula 3 02/14/20 15:20 97.0 Laboratory Data Labs 24H Laboratory Tests 2 02/14/20 08:05: Nucleated Red Blood Cells % (auto) 0.0, Prothrombin Time 13.0, Prothromb Time International Ratio 0.96, Activated Partial Thromboplast Time 26.9, Anion Gap 5L, Glomerular Filtration Rate 54.5, Calcium Level 9.0 02/14/20 14:56: Bedside Glucose (Misc Panel) 172H CBC/BMP Laboratory Tests 02/14/20 08:05 Home Medications Scheduled Aspirin (Aspir 81) 81 Mg Tablet.dr, 81 MG PO DAILY Atenolol (Atenolol) 100 Mg Tablet, 100 MG PO DAILY Clopidogrel Bisulfate (Plavix) 75 Mg Tablet, 75 MG PO DAILY Donepezil Hcl (Donepezil HCl Odt) 5 Mg Tab.rapdis, 5 MG PO DAILY Dulaglutide (Trulicity) 0.75 Mg/0.5 Ml Pen.injctr, Unknown Dose SC QWEEK Friday Furosemide (Furosemide) 40 Mg Tablet, 40 MG PO DAILY Gabapentin (Gabapentin) 300 Mg Capsule, 300 MG PO BID Insulin Human Lispro (Novolog) 100 Unit/1 Ml Vial, 1 UNITS SC BIDP sliding scale Isosorbide Mononitrate (Isosorbide Mononitrate ER) 60 Mg Tab.er.24h, 60 MG PO DAILY Lansoprazole (Prevacid) 30 Mg Tab.rap.dr, 30 MG PO DAILY Nitroglycerin (Nitroglycerin Patch) 0.4 Mg/Hr Patch.td24, Unknown Dose TD DAILY Potassium Chloride (Klor-Con M20) 20 Meq Tab.er.prt, 20 MEQ PO DAILY Rosuvastatin Calcium (Rosuvastatin Calcium) 20 Mg Tablet, 20 MG PO QHS Scheduled PRN Naproxen Sodium (Aleve) 220 Mg Tablet, 220 MG PO PRN PRN for PAIN Nitroglycerin (Nitroglycerin) 0.4 Mg Tab.subl, 0.4 MG SL PRN PRN for CHEST PAIN Allergies Coded Allergies: Contrast Media (Verified Allergy, Unknown, RASH, 01/31/20) niacin (Verified Allergy, Unknown, 01/31/20) A-FIB/CHADSVASC A-FIB History Current/History of A-Fib/PAF?: No ARIE SAMPSON MD Feb 14, 2020 16:01
[2020-02-14] MEDS ORDERED: DEXTROSE 50% 50 ML SYRINGE IV PRN (17:30)
[2020-02-14] MEDS ORDERED: GLUCOSE 4GM CHEW TABLET PO PRN (17:30)
[2020-02-14] MEDS ORDERED: IPRATROPIUM 0.5MG/ALBUTEROL 2.5MG INH SOL UD 3ML (DUONEB) NEB PRN (17:30)
[2020-02-14] MEDS ORDERED: GLUCAGON INJ 1MG VIAL SC PRN (17:30)
[2020-02-14] MEDS ORDERED: MOM 30ML SUSPENSION UDC PO PRN (17:30)
[2020-02-14 17:51] LABS: CHOLESTEROL RISK RATIO 3.244 (<5)
[2020-02-14 18:33] LABS: HEMOGLOBIN A1c 8.6 %
[2020-02-14] MEDS: HumaLOG INSULIN (NovoLOG) PER UNIT SC SCH ×2 (18:40→21:40)
[2020-02-14] MEDS: ROSUVASTATIN 10 MG TAB (CRESTOR) PO SCH (21:39)
[2020-02-14] MEDS: GABAPENTIN 300 MG CAP PO SCH (21:39)
[2020-02-14] MEDS: DOCUSATE SODIUM 100 MG CAP PO SCH (21:39)
[2020-02-14 22:00] VITALS: BP 149/67
[2020-02-15 06:00] VITALS: BP 154/69
[2020-02-15] MEDS: PERCOCET 5MG/325MG TAB PO PRN (06:18)
[2020-02-15 06:26] LABS: HEMATOCRIT 45.3 % (36.0-47.0); HEMOGLOBIN 14.7 g/dl (12.0-15.5); MEAN CORPUSCULAR HEMOGLOBIN 28.4 pg (27.0-33.0); MEAN CORPUSCULAR HGB CONC 32.5 g/dl (32.0-36.5); MEAN CORPUSCULAR VOLUME 87.5 fl (80.0-96.0); PLATELET COUNT, AUTOMATED 207 10^3/uL (150-450); RED BLOOD COUNT 5.18 10^6/uL (4.00-5.40); WHITE BLOOD COUNT 11.2 10^3/uL (4.0-10.0)
[2020-02-15 06:49] LABS: BLOOD UREA NITROGEN 14 MG/DL (7-18); CALCIUM LEVEL 8.3 MG/DL (8.8-10.2); CARBON DIOXIDE LEVEL 28 MEQ/L (21-32); CHLORIDE LEVEL 108 MEQ/L (98-107); CREATININE FOR GFR 0.86 MG/DL (0.55-1.30); GLOMERULAR FILTRATION RATE > 60.0 (>39); GLUCOSE, FASTING 149 MG/DL (70-100); SODIUM LEVEL 140 MEQ/L (136-145)
--- NOTE | 2020-02-15 07:36 | IPNPDOC ---
Date Seen The patient was seen on 02/15/20. Progress Note Patient seen and examined postoperative day one status post left femoral endarterectomy with patch angioplasty and left femoral to above-knee popliteal bypass with PTFE. She's doing well. Pain well controlled. No complaints this morning except being tired. Her left groin incision and left thigh incision are clean dry and intact with scant serosanguineous drainage on the dressings. Incisions were clean and dried and dressings were placed. She does have some bruising along the medial thigh in the area where the graft was tunneled, which is not unexpected due to significant intraoperative anticoagulation. However, it is not substantial and I believe it is safe to restart her Plavix today. I would hold off on adding Lovenox for DVT prophylaxis until we see if she has any increased bleeding with the Plavix. We could possibly start that this evening if no increased bruising or bleeding is noted. We will DC the bedrest this morning, okay for out of bed and activity as tolerated. PTOT if necessary. It would be great if she can get out of bed sit in the chair for meals. Ideally, she may be ready for discharge tomorrow or depending on her progress. We appreciate the hospitalist excellent care of this patient. VS, I&O, 24H, Olamide Vital Signs/I&O Vital Signs Date Time Temp Pulse Resp B/P (MAP) Pulse Ox O2 Delivery O2 Flow Rate FiO2 02/15/20 06:50 18 Room Air 02/15/20 06:00 98.0 71 154/69 (97) 97 02/14/20 21:00 3.0 I&O- Last 24 Hours up to 6 AM 02/15/20 06:00 Intake Total 2300 ml Output Total 300 ml Balance 2000 ml Laboratory Data 24H LABS Laboratory Tests 2 02/14/20 08:05: Nucleated Red Blood Cells % (auto) 0.0, Prothrombin Time 13.0, Prothromb Time International Ratio 0.96, Activated Partial Thromboplast Time 26.9, Anion Gap 5L, Glomerular Filtration Rate 54.5, Estimated Mean Plasma Glucose 200H, Hemoglobin A1c 8.6, Calcium Level 9.0, Triglycerides Level 120, Total Cholesterol 159, LDL Cholesterol 86, Non-HDL Cholesterol (LDL + VLDL) 110, Total HDL Cholesterol 49, Cholesterol/HDL Ratio 3.244 02/14/20 14:56: Bedside Glucose (Misc Panel) 172H 02/14/20 16:33: Bedside Glucose (Misc Panel) 224H 02/14/20 20:40: Bedside Glucose (Misc Panel) 291H 02/15/20 05:34: Nucleated Red Blood Cells % (auto) 0.0, Anion Gap 4L, Glomerular Filtration Rate > 60.0, Calcium Level 8.3L CBC/BMP Laboratory Tests 02/14/20 08:05 02/15/20 05:34 RADHA PRIDE MD Feb 15, 2020 07:36
[2020-02-15] MEDS: DOCUSATE SODIUM 100 MG CAP PO SCH ×2 (08:35→20:41)
[2020-02-15] MEDS: CLOPIDOGREL 75 MG TAB PO SCH (08:35)
[2020-02-15] MEDS: HumaLOG INSULIN (NovoLOG) PER UNIT SC SCH ×4 (08:35→20:31)
[2020-02-15 08:36] VITALS: BP 146/68
[2020-02-15] MEDS: atenoloL 50 MG TAB PO SCH (08:36)
[2020-02-15] MEDS: FUROSEMIDE 40 MG TAB PO SCH (08:36)
[2020-02-15] MEDS: ISOSORBIDE MON. (IMDUR) 60 MG XR TAB PO SCH (08:36)
[2020-02-15] MEDS: GABAPENTIN 300 MG CAP PO SCH ×2 (08:36→20:40)
[2020-02-15] MEDS: ASPIRIN 81 MG ENTERIC TAB PO SCH (08:36)
[2020-02-15] MEDS ORDERED: HEPARIN SOD (PORCINE) 5000UNITS/ML 1ML VIAL/SYRINGE SC SCH (09:00)
[2020-02-15] MEDS ORDERED: LANSOPRAZOLE SUSPENSION 30 MG/10 ML ORAL SYRINGE (FIRST-LANSOPRAZOLE) PO SCH (09:00)
--- NOTE | 2020-02-15 11:09 | IPNPDOC ---
Date Seen The patient was seen on 02/15/20. Progress Note SUBJECTIVE: patient was seen and examined at bedside. Doing well. No acute events overnight. Denies subjective fevers, chills. No n/v/d. OBJECTIVE PHYSICAL EXAMINATION: VITAL SIGNS: please see below General: NAD, comfortable HEENT: PERRLA, EOMI, sclerae clear Neck: supple, normal ROM, no JVD Respiratory: lungs CTAB, no wheeze, no rales, no crackles CVS: RRR, normal S1, S2, no murmurs Abdo: soft, no masses, no hepatosplenomegaly, BS+, no rebound tenderness Extremities: no edema, pulses 2+, L thigh bruising, extending up to perineum. MSK: no joint deformities, normal ROM Neuro: no focal neuro deficits, moving all 4 extremities, CN2-12 intact. Strength 5/5 in all 4 extremities. No nystagmus. Psych: calm, cooperative, AAO x 3 LABORATORY DATA, IMAGING STUDIES, MICROBIOLOGY: Please see below. DVT prophylaxis ordered?: SCDs, TEDs. Resume lovenox on 02/16/[address] Moreno. 74F PMHx HTN, DM, CAD, COPD, [id number] limiting LE claudicationpost op by vascular surgery Dr. Catalan for left femoral endarterectomy with xenosure patch angioplasty as well as left femoral to above-knee popliteal bypass. Patient admitted to med/surge unit for postoperative evaluation and management. # Lower extremity claudication: Status post left femoral endarterectomy and left femoral to above-knee popliteal bypass on 02/14/2020. Surgical in pain management per vascular surgery. L medial thigh bruising, expected per Dr. Moreno. Resume ASA/plavix. Hold heparin until 02/15, monitor for increased bruising. # COPD: Some wheezing on exam. DuoNebs when necessary. # Hypertension: Continue home meds. Monitor and titrate. # Diabetes: ISS. Frequent Accu-Cheks. Hypoglycemic precautions. A1c 8.6. LDL 86. HDL 49. Continue home dose gabapentin for diabetic neuropathy. # CAD: Continue aspirin and statin. Plavix per vascular. May need lifelong dual antiplatelet therapy given extent of PAD. Cardiac stenting was more than 5 years ago. Patient should follow up with cardiology on need for continue dual antiplatelet therapy. # History of CHF: Euvolemic on exam. Continue Lasix. Continue isosorbide. Continue atenolol # DVT prophylaxis: received SC heparin this am. Will hold PM dose. Resume 02/[address] Moreno. DISPOSITION: PT/OT. OOB for meals. VS, I&O, 24H, Fishbone Vital Signs/I&O Vital Signs Date Time Temp Pulse Resp B/P (MAP) Pulse Ox O2 Delivery O2 Flow Rate FiO2 02/15/20 09:50 3.0 02/15/20 08:36 146/68 02/15/20 08:36 71 02/15/20 06:50 18 Room Air 02/15/20 06:00 98.0 97 I&O- Last 24 Hours up to 6 AM 02/15/20 06:00 Intake Total 2300 ml Output Total 300 ml Balance 2000 ml Laboratory Data 24H LABS Laboratory Tests 2 02/14/20 14:56: Bedside Glucose (Misc Panel) 172H 02/14/20 16:33: Bedside Glucose (Misc Panel) 224H 02/14/20 20:40: Bedside Glucose (Misc Panel) 291H 02/15/20 05:34: Nucleated Red Blood Cells % (auto) 0.0, Anion Gap 4L, Glomerular Filtration Rate > 60.0, Calcium Level 8.3L CBC/BMP Laboratory Tests 02/15/20 05:34 DACIA SOLIMAN MD Feb 15, 2020 11:09
--- NOTE | 2020-02-15 13:52 | REP ---
INDICATION: chest pain. COMPARISON: Comparison chest x-ray March 23, 2013.. TECHNIQUE: Portable semi-erect AP view. FINDINGS: There is extensive vascular calcification versus coronary stent material along the left heart border. Vascular calcification is seen in the aorta. The heart is enlarged unchanged from the comparison study. Vascular and interstitial markings are somewhat increased diffusely. No focal infiltrate is seen. No evidence of pleural effusion. IMPRESSION: Cardiomegaly, vascular calcification. Pulmonary vascular congestion and mildly prominent interstitial markings diffusely. No pleural effusion seen <Electronically signed by Eric Muñoz > 02/15/20 [id number]
[2020-02-15 14:00] VITALS: BP 112/60
[2020-02-15 16:44] LABS: CK-MB VALUE MASS 3.4 NG/ML (<3.6); MB/CK RELATIVE INDEX 2.96 (< OR =4)
[2020-02-15 20:30] LABS: CK-MB VALUE MASS 2.6 NG/ML (<3.6); MB/CK RELATIVE INDEX 2.5 (< OR =4); TROPONIN I 1.05 NG/ML (< 0.10)
[2020-02-15] MEDS: ROSUVASTATIN 10 MG TAB (CRESTOR) PO SCH (20:41)
[2020-02-15] MEDS ORDERED: EZETIMIBE 10 MG TAB (ZETIA) PO SCH (21:00)
[2020-02-15 22:00] VITALS: BP 135/61
[2020-02-15] MEDS ORDERED: HEPARIN DRIP 25,000 UNITS in IV 1 EA IV SCH (22:05)
[2020-02-15 22:12] VITALS: O2SAT 98
[2020-02-15] MEDS ORDERED: HEPARIN SOD (PORCINE) 5000UNITS/ML 1ML VIAL/SYRINGE IV PRN (22:15)
--- NOTE | 2020-02-15 22:36 | IPNPDOC ---
Text Note Date of Service The patient was seen on 02/15/20. NOTE TIME OF SERVICE 1020PM Despite the elevation in the troponin, denied having any additional episodes of chest pain, denied shortness of breath or dizziness. #Elevated Troponin Possibly type 2 NSTEMI vs LVH vs accelerated HTN (her SBP was as high as the 170s in the afternoon) EKGs x [address] segment elevation MAYO score for NSTEMI = 5 d/w both Tomas and Shyam Plan: transfer to PCU / c/w DAPT, atenolol and rosuvastatin / start heparin drip /add ezetimibe (reduces risk of future CVA events in patients with ACS) / Echo already ordered by #DM Plan: when ready for dc she can f/u with her PCP to discuss adding empagliflozin to reduce the risk of CVD VS,Fishbone, I+O VS, Fishbone, I+O Laboratory Tests 02/15/20 05:34 Vital Signs Date Time Temp Pulse Resp B/P (MAP) Pulse Ox O2 Delivery O2 Flow Rate FiO2 02/15/20 15:52 94 Room Air 02/15/20 14:00 97.5 71 18 112/60 (77) 0.3 I&O- Last 24 Hours up to 6 AM 02/15/20 06:00 Intake Total 2300 ml Output Total 300 ml Balance 2000 ml TANI PALM MD Feb 15, 2020 22:36
[2020-02-15 22:55] VITALS: BP 138/76
[2020-02-16] VITALS (9 sets, daily range): BP systolic 127–156; BP diastolic 63–78; O2SAT 93–96
[2020-02-16 00:37] LABS: MB/CK RELATIVE INDEX 2.3 (< OR =4); TROPONIN I 1.09 NG/ML (< 0.10)
[2020-02-16] MEDS: PERCOCET 5MG/325MG TAB PO PRN ×2 (01:18→02:41)
[2020-02-16 04:58] LABS: CK-MB VALUE MASS 1.5 NG/ML (<3.6); CPK CREATINE PHOSPHOKINASE 87 U/L (26-192); MB/CK RELATIVE INDEX 1.72 (< OR =4); TROPONIN I 0.95 NG/ML (< 0.10)
[2020-02-16] MEDS ORDERED: ACETAMINOPHEN TAB 650MG DOSE (2X325MG) PO ONE (08:15)
[2020-02-16 08:19] LABS: BLOOD UREA NITROGEN 13 MG/DL (7-18); CALCIUM LEVEL 8.6 MG/DL (8.8-10.2); CARBON DIOXIDE LEVEL 28 MEQ/L (21-32); CHLORIDE LEVEL 103 MEQ/L (98-107); CREATININE FOR GFR 0.91 MG/DL (0.55-1.30); GLOMERULAR FILTRATION RATE > 60.0 (>39); GLUCOSE, FASTING 198 MG/DL (70-100); POTASSIUM SERUM 3.8 MEQ/L (3.5-5.1); SODIUM LEVEL 138 MEQ/L (136-145)
[2020-02-16 08:29] LABS: BASO # 0.1 10^3/uL (0.0-0.2); BASO % 0.7 % (0.0-1.0); EOS # 0.1 10^3/uL (0.0-0.5); EOS % 0.6 % (0.0-3.0); HEMATOCRIT 43.2 % (36.0-47.0); HEMOGLOBIN 13.6 g/dl (12.0-15.5); LYMPH # 2.7 10^3/uL (1.5-5.0); LYMPH % 21.5 % (24.0-44.0); MEAN CORPUSCULAR HEMOGLOBIN 27.5 pg (27.0-33.0); MEAN CORPUSCULAR HGB CONC 31.5 g/dl (32.0-36.5); MEAN CORPUSCULAR VOLUME 87.3 fl (80.0-96.0); MONO # 1.3 10^3/uL (0.0-0.8); MONO % 10.2 % (0.0-5.0); NEUTROPHILS # 8.5 10^3/uL (1.5-8.5); NEUTROPHILS % 66.6 % (36.0-66.0); PLATELET COUNT, AUTOMATED 197 10^3/uL (150-450); RED BLOOD COUNT 4.95 10^6/uL (4.00-5.40); WHITE BLOOD COUNT 12.7 10^3/uL (4.0-10.0)
[2020-02-16] MEDS ORDERED: PERCOCET PO (08:48)
[2020-02-16] MEDS ORDERED: DILA2TAB6 PO (08:48)
[2020-02-16] MEDS ORDERED: HEPA1INJ81 IV (08:48)
[2020-02-16] MEDS ORDERED: EZET10TA21 PO (08:48)
[2020-02-16] MEDS ORDERED: INSUDET SC (08:48)
[2020-02-16] MEDS ORDERED: DOCU100C16 PO (08:48)
[2020-02-16] MEDS ORDERED: LEVEMIR (INSULIN DETEMIR) 1 UNITS/0.01ML SC SCH (09:00)
--- NOTE | 2020-02-16 09:00 | REP ---
INDICATION: new onset headache, blurred vision, on anticoagulation. COMPARISON: Comparison head CT studies from January 06, 2013.. TECHNIQUE: Helical scanning is acquired. 5 mm axial images were reformatted. Coronal MPR images were generated. FINDINGS: Bone window settings demonstrate intact bony calvarium. Vascular calcification is fairly prominently seen affecting the distal vertebral and distal internal carotid arteries as before. The visualized paranasal sinuses are clear. No intraorbital abnormality seen. On soft tissue window settings, there is minimal generalized volume loss. There is old encephalomalacia in the right occipital temporal lobe region consistent with an old infarct. This is unchanged from the [address] Old encephalomalacia is seen in the right basal ganglia and to a lesser extent in the periventricular white matter in the right frontal lobe. A periventricular white matter low density was seen in 2013. The basal ganglia infarct is new since then but old in appearance. There is a secondary enlargement of the frontal horn fat of the lateral ventricle on the right related to this. No new infarct is seen. There is no evidence of intracranial hemorrhage or mass. No midline shift is seen. If IMPRESSION: Mild generalized volume loss and vascular calcification. 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 No acute infarct or hemorrhage seen.. <Electronically signed by Eric Muñoz > 02/16/20 [id number]
[2020-02-16] MEDS ORDERED: NITROGLYCERIN 0.3 MG SUBL TAB SL STA (09:07)
[2020-02-16] MEDS ORDERED: LABETALOL 100MG/20ML VIAL IV STA (09:08)
--- NOTE | 2020-02-16 09:10 | DS.PDOC ---
Discharge Summary General Date of Admission Feb 14, 2020 at 07:26 Date of Discharge 02/16/20 Discharge Summary PROCEDURES PERFORMED DURING STAY: [None]. ADMITTING DIAGNOSES: Leg claudication s/p L femoral endarterectomy, L femoral to popliteal bypass COPD Hypertension DM2 CAD CHF DISCHARGE DIAGNOSES: ACS Leg claudication s/p L femoral endarterectomy, L femoral to popliteal bypass COPD Hypertension DM2 CAD CHF COMPLICATIONS/CHIEF COMPLAINT: Atherosclerosis Of [place] Arteries. HISTORY OF PRESENT ILLNESS: 74F PMHx HTN, DM, CAD, COPD, LE claudication. Her lower extremity claudication has been limiting her lifestyle and has not improved despite walking program to improve circulation. Taken to the OR by vascular surgery Dr. Catalan for planned left femoral endarterectomy with xenosure patch angioplasty as well as left femoral to above-knee popliteal bypass. I was asked to see the patient postop for medical admission. From chart review it appears that the patient has tried walking programs but has been unsuccessful prior to this surgery and the claudication has progressed limiting her mobility and affecting her lifestyle which warranted this intervention. HOSPITAL COURSE: 74F PMHx HTN, DM, CAD, COPD, [id number] limiting LE claudicationpost op by vascular surgery Dr. Catalan for left femoral endarterectomy with xenosure patch angioplasty as well as left femoral to above-knee popliteal bypass. Patient admitted to med/surge unit for postoperative evaluation and management. #Troponin elevation: L sided chest pain. EKG x [address] segment elevation. Trop max 1.09, trending down, next 0.95. Heparin ggt started overnight. Discussed with Dr. Howe, hx of extensive ischemic heart disease, s/p multiple stents at [facility]. Transfer to [facility] for angiogram, accepted by interventional cardiology Dr. Ann. #Headache: patient reports 9/10 headache with blurred vision 02/16/20. Neuro exam benign. CT head wo contrast shows no acute ischemic or hemorrhagic changes. Old CVA from [address] Muñoz. # Lower extremity claudication: Status post left femoral endarterectomy and left femoral to above-knee popliteal bypass on 02/14/2020. Surgical in pain management per vascular surgery. L medial thigh bruising, expected per Dr. Cele zuniga. Resume ASA/plavix. Hold heparin until 02/15, monitor for increased bruising. # COPD: Some wheezing on exam. DuoNebs when necessary. # Hypertension: Continue home meds. Monitor and titrate. # Diabetes: ISS. Frequent Accu-Cheks. Hypoglycemic precautions. A1c 8.6. LDL 86. HDL 49. Continue home dose gabapentin for diabetic neuropathy. # CAD: Continue aspirin and statin. Plavix per vascular. May need lifelong dual antiplatelet therapy given extent of PAD. Cardiac stenting was more than 5 years ago. Patient should follow up with cardiology on need for continue dual antiplatelet therapy. # History of CHF: Euvolemic on exam. Continue Lasix. Continue isosorbide. Continue atenolol # DVT prophylaxis: received SC heparin this am. Will hold PM dose. Resume 02/[address] Moreno. DISCHARGE MEDICATIONS: Please see below. ALLERGIES: Please see below. PHYSICAL EXAMINATION ON DISCHARGE: VITAL SIGNS: please see below General: NAD, comfortable HEENT: PERRLA, EOMI, sclerae clear, pupils sluggish to light, 3 mm. Neck: supple, normal ROM, no JVD Respiratory: lungs CTAB, no wheeze, no rales, no crackles CVS: RRR, normal S1, S2, no murmurs Abdo: soft, no masses, no hepatosplenomegaly, BS+, no rebound tenderness Extremities: no edema, pulses 2+, L thigh bruising, extending up to perineum. MSK: no joint deformities, normal ROM Neuro: no focal neuro deficits, moving all 4 extremities, CN2-12 intact. Strength 5/5 in all 4 extremities. No nystagmus. No past pointing. Psych: calm, cooperative, AAO x 3 LABORATORY DATA: Please see below. IMAGING: Reviewed CT head with Dr. Muñoz, showing no acute hemorrhage, ischemia. PROGNOSIS: fair ACTIVITY: [As tolerated]. DIET: NPO, going for possible cath DISCHARGE PLAN: transfer to [place] for cardiac intervention. DISCHARGE CONDITION: [Stable]. TIME SPENT ON DISCHARGE: Greater than 30 minutes. Vital Signs/I&Os Vital Signs Date Time Temp Pulse Resp B/P (MAP) Pulse Ox O2 Delivery O2 Flow Rate FiO2 02/16/20 08:00 97.0 72 16 156/70 (98) 93 Room Air 02/16/20 05:58 1.0 I&O- Last 24 Hours up to 6 AM 02/16/20 06:00 Intake Total 1050 ml Output Total 1250 ml Balance -200 ml Laboratory Data Labs 24H Laboratory Tests 2 02/15/20 11:23: Bedside Glucose (Misc Panel) 277H 02/15/20 12:03: Troponin I 0.60H 02/15/20 15:59: Troponin I 0.92#H, Total Creatine Kinase 115, Creatine Kinase MB 3.4, Creatine Kinase MB Relative Index 2.96 02/15/20 16:36: Bedside Glucose (Misc Panel) 276H 02/15/20 19:43: Total Creatine Kinase 104, Creatine Kinase MB 2.6, Creatine Kinase MB Relative Index 2.50, Troponin I 1.05H 02/15/20 20:27: Bedside Glucose (Misc Panel) 239H 02/15/20 23:45: Total Creatine Kinase 87, Creatine Kinase MB 2.0, Creatine Kinase MB Relative Index 2.30, Troponin I 1.09H, Activated Partial Thromboplast Time 26.5 02/16/20 04:16: Total Creatine Kinase 87, Creatine Kinase MB 1.5, Creatine Kinase MB Relative Index 1.72, Troponin I 0.95H, Activated Partial Thromboplast Time 65.7H, Immature Granulocyte % (Auto) 0.4, Neutrophils (%) (Auto) 66.6H, Lymphocytes (%) (Auto) 21.5L, Monocytes (%) (Auto) 10.2H, Eosinophils (%) (Auto) 0.6, Basophils (%) (Auto) 0.7, Neutrophils # (Auto) 8.5, Lymphocytes # (Auto) 2.7, Monocytes # (Auto) 1.3H, Eosinophils # (Auto) 0.1, Basophils # (Auto) 0.1, Nucleated Red Blood Cells % (auto) 0.0, Anion Gap 7L, Glomerular Filtration Rate > 60.0, Calcium Level 8.6L CBC/BMP Laboratory Tests 02/16/20 04:16 FSBS Laboratory Tests Test 02/15/20 11:23 02/15/20 16:36 02/15/20 20:27 Range/Units Bedside Glucose (Misc Panel) 277 276 239 83-110 MG/DL Discharge Medications Scheduled Aspirin (Aspir 81) 81 Mg Tablet.dr, 81 MG PO DAILY, (Reported) Atenolol (Atenolol) 100 Mg Tablet, 100 MG PO DAILY, (Reported) Clopidogrel Bisulfate (Plavix) 75 Mg Tablet, 75 MG PO DAILY, (Reported) Docusate Sodium (Docusate Sodium) 100 Mg Capsule, 100 MG PO BID Donepezil Hcl (Donepezil HCl Odt) 5 Mg Tab.rapdis, 5 MG PO DAILY, (Reported) Ezetimibe (Ezetimibe) 10 Mg Tablet, 10 MG PO QHS Furosemide (Furosemide) 40 Mg Tablet, 40 MG PO DAILY, (Reported) Gabapentin (Gabapentin) 300 Mg Capsule, 300 MG PO BID, (Reported) Heparin Sodium,Porcine/D5w (Heparin 25,000 Unit/250 ml-D5w) 25,000 Unit/250 Ml Iv.soln, 1 INJ IV cont Insulin Detemir (Levemir) 100 Unit/1 Ml Vial, 10 UNITS SC DAILY Insulin Human Lispro (Novolog) 100 Unit/1 Ml Vial, 1 UNITS SC BIDP, (Reported) sliding scale Isosorbide Mononitrate (Isosorbide Mononitrate ER) 60 Mg Tab.er.24h, 60 MG PO DAILY, (Reported) Lansoprazole (Prevacid) 30 Mg Tab.rap.dr, 30 MG PO DAILY, (Reported) Nitroglycerin (Nitroglycerin Patch) 0.4 Mg/Hr Patch.td24, Unknown Dose TD DAILY, (Reported) Potassium Chloride (Klor-Con M20) 20 Meq Tab.er.prt, 20 MEQ PO DAILY, (Reported) Rosuvastatin Calcium (Rosuvastatin Calcium) 20 Mg Tablet, 20 MG PO QHS, ( Reported) Scheduled PRN Hydromorphone HCl (Dilaudid) 2 Mg Tablet, 1 MG PO Q4HP PRN for BREAKTHROUGH PAIN Naproxen Sodium (Aleve) 220 Mg Tablet, 220 MG PO PRN PRN for PAIN, (Reported) Nitroglycerin (Nitroglycerin) 0.4 Mg Tab.subl, 0.4 MG SL PRN PRN for CHEST PAIN, (Reported) Oxycodone/Acetaminophen (Oxycodone-Acetaminophen 5-325) 1 Each Tablet, 1 TAB PO Q4HP PRN for MODERATE PAIN (PS 5-7) Allergies Coded Allergies: Contrast Media (Verified Allergy, Unknown, RASH, 01/31/20) niacin (Verified Allergy, Unknown, 01/31/20) DACIA SOLIMAN MD Feb 16, 2020 09:10
[2020-02-16] MEDS: CLOPIDOGREL 75 MG TAB PO SCH (09:39)
[2020-02-16] MEDS: ASPIRIN 81 MG ENTERIC TAB PO SCH (09:39)
[2020-02-16] MEDS: atenoloL 50 MG TAB PO SCH (09:40)
[2020-02-16] MEDS: ISOSORBIDE MON. (IMDUR) 60 MG XR TAB PO SCH (09:40)
[2020-02-16] MEDS: FUROSEMIDE 40 MG TAB PO SCH (09:41)
--- NOTE | 2020-02-17 07:38 | CR ---
DATE OF CONSULTATION: 02/16/2020 REFERRING PHYSICIAN: Dr. Tompkins. INDICATION: Chest pain, elevated troponin. HISTORY OF PRESENT ILLNESS: Mrs. Fontenot is a 74-year-old female who was previously unknown to me. She is followed by Dr. Vanegas for chronic ischemic heart disease. She underwent a left femoral popliteal bypass by Dr. Moreno on February 13. The procedure was uneventful but yesterday morning she experienced rather severe retrosternal chest discomfort that persisted for about 10 or 15 minutes. It led to subsequent serial troponins being drawn that peaked around 1.1 last night. She tells me that she did not have any recurrence of chest discomfort since yesterday morning. She currently complains primarily about severe headache that started earlier today. No associated nausea or vomiting. Denies any chest pain and denies any dyspnea. PAST MEDICAL HISTORY: 1. Coronary artery disease, unfortunately the patient is a somewhat limited historian. Her last cardiac catheterization was performed on May 25, 2019 after she presented with congestive heart failure and had mildly elevated troponin. It revealed rather diffuse three vessel coronary artery disease with multiple stenoses but none of them were found to be critical. There are numerous stents in her LAD, circumflex and RCA that were patent. There were several branches that were completely occluded including distal PDA and first diagonal but they were felt to be too small to intervene. Left ventricular ejection fraction was estimated at about 50 to 55%. 2. Hypertension. 3. Dyslipidemia. 4. Diabetes. 5. Peripheral vascular disease. 6. COPD. PAST SURGICAL HISTORY: 1. Tubal ligation. 2. Joint replacement of knee and hip. 3. Femoral fracture with ORIF. SOCIAL HISTORY: The patient is a , she lives alone but her children are nearby. She continues to smoke approximately a pack a day. No significant alcohol use. FAMILY HISTORY: Positive for CAD in first degree relatives. ALLERGIES: Niacin and IV contrast. OUTPATIENT MEDICATIONS: 1. Aspirin 81 mg a day. 2. Atenolol 100 mg a day. 3. Plavix 75 mg a day. 4. Donepezil 5 mg a day. 5. Trulicity. 6. Furosemide 40 mg a day. 7. Gabapentin 300 mg twice a day. 8. Novolog insulin. 9. Isosorbide 60 mg a day. 10. Prevacid 30 mg a day. 11. Aleve 220 mg as needed for pain. 12. Nitroglycerin patch. 13. Potassium 20 mEq daily. 14. Crestor 20 mg daily. REVIEW OF SYSTEMS: The patient does have a headache currently but no nausea, no vomiting. She denies any recent fever or chills. She denies any anginal symptoms prior to current presentation. Not much shortness of breath. Her ambulation has been always limited by severe left lower extremity claudication. No abdominal pain. No diarrhea. No blood in her stools. No peripheral edema. PHYSICAL EXAMINATION: GENERAL: Mrs. Garcia is an elderly white obese female who appears to be uncomfortable but in no apparent distress. She is alert, oriented and appropriate. VITAL SIGNS: The last set of vital signs: Blood pressure 127/63, heart rate in the 60s, saturation 92 to 95% on 1 liter of oxygen via nasal cannula. NECK: Her JVP is not high. She has a faint bilateral carotid bruit. HEART: Regular rhythm. I do not appreciate any gallop, rub or murmur. LUNGS: Reasonably clear to auscultation with fair air movement, occasional expiratory wheeze is noted. ABDOMEN: Soft without obvious tenderness or rebound tenderness. EXTREMITIES: Free of edema. Peripheral pulses are palpable in both extremities. NEUROLOGIC: She is for the most part intact even though I did not do any formal testing of her DTRs or fine perception but she clearly has intact speech and moves all four extremities. LABORATORY DATA: No basic metabolic panel was obtained this morning but her troponin was drawn on numerous occasions throughout yesterday and peaked at 1.09 around midnight last night. CK and CK-MB have never been elevated. Lipid panel: Triglycerides: 120, cholesterol 159, LDL 86 and HDL 49. Basic metabolic panel yesterday was normal with the exception of glucose of 149. CBC as of yesterday morning: WBC count 11.2, hemoglobin 14.7, hematocrit 40.2, platelet count 207,000. She had two EKGs that were performed both yesterday, none of which revealed any ischemic abnormalities. ASSESSMENT AND PLAN: Mrs. Fontenot is a 74-year-old female who has established coronary artery disease with multiple stents in all three coronary arteries with numerous branches that have disease based on coronary angiography in May 2019. She had about 10 to 15 minutes of chest discomfort associated with troponin elevation that peaked around 1.1 last night but she has not had any recurrence of chest discomfort since yesterday. The discomfort started when she was ambulating. I do believe that this is certainly a high risk situation and my preference would be for another coronary angiogram. I talked to the patient about the plan and she is in full agreement. But until that happens I am afraid we will have to obtain a CT of the head as she complains of a severe headache and has been on aspirin, Plavix and Heparin even though I do not appreciate any focal neurologic problems. I will obtain a follow-up EKG this morning and I will obtain a CBC and basic metabolic panel. I will talk to Dr. Tompkins about this plan so he can execute the decisions. SARA
--- NOTE | 2020-02-17 22:48 | ECGEPIP ---
[facility] Test Date: 2020-02-15 Pat Name: ALDEN ACOSTA Department: Room: U6205-30 Gender: Female Exterior Interior Specialist: PHUC : 1945 Requested By: DACIA SOLIMAN Order Number: [id number] Reading MD: Sigifredo Bedoya Measurements Intervals [place] Rate: 65 P: 31 DC: 174 QRS: 35 QRSD: 91 T: 113 QT: 424 QTc: 442 Interpretive Statements SINUS RHYTHM WITH SUPRAVENTRICULAR PREMATURE COMPLEX 1 MODERATE T-WAVE ABNORMALITY, CONSIDER LATERAL ISCHEMIA No prior ECG available for comparison at the time of interpretation. Electronically Signed on 02-17-2020 22:48:29 EDT by Sigifredo Bedoya
--- NOTE | 2020-02-17 22:51 | ECGEPIP ---
[facility] Test Date: 2020-02-15 Pat Name: ALDEN ACOSTA Department: Room: L3211-10 Gender: Female Transition Advisor: : 1945 Requested By: DACIA SOLIMAN Order Number: [id number] Reading MD: Sigifredo Bedoya Measurements Intervals [place] Rate: 68 P: 73 UT: 190 QRS: 39 QRSD: 88 T: 117 QT: 382 QTc: 409 Interpretive Statements SINUS RHYTHM ST DEVIATION AND MODERATE T-WAVE ABNORMALITY, CONSIDER LATERAL ISCHEMIA No PACs compared with 02/15/2020 at 1147 hrs. Electronically Signed on 02-17-2020 22:51:04 EDT by Sigifredo Bedoya
--- NOTE | 2020-02-18 08:44 | ECGEPIP ---
[facility] Test Date: 2020-02-16 Pat Name: ALDEN ACOSTA Department: Room: K2081-20 Gender: Female Oracle Analyst: : 1945 Requested By: DACIA SOLIMAN Order Number: [id number] Reading MD: Ben Ann Measurements Intervals [place] Rate: 68 P: 35 CO: 179 QRS: 38 QRSD: 101 T: 107 QT: 411 QTc: 438 Interpretive Statements Normal sinus rhythm LA conduction disturbance Minuscule inferior Q waves; consider prior inferior infarction. Lateral ST/T wave abnormalities. No change from 02/15/20. Electronically Signed on 02-18-2020 8:44:21 EDT by Ben Ann
== END 2020-02-16 11:06 | disposition short-term general hospital (02) | DRG 254 ==
LOC: M OR 07:26 → M MSPAV 15:57 → M PCU 02-15 22:44
PROVIDERS: ADMIT Surgery Vascular Surgery; ATTEND Family Medicine
PROC: 04UL0JZ Supplement Left Femoral Artery with Synthetic Substitute, Open Approach (ICD-10-PCS; 2020-02-14)
PROC: 04CL0ZZ Extirpation of Matter from Left Femoral Artery, Open Approach (ICD-10-PCS; principal; 2020-02-14 10:00)
PROC: 041L0JL Bypass Left Femoral Artery to Popliteal Artery with Synthetic Substitute, Open Approach (ICD-10-PCS; 2020-02-14 10:00)
DX: I70.212 Atherosclerosis of native arteries of extremities with intermittent claudication, left leg (principal); I25.10 Atherosclerotic heart disease of native coronary artery without angina pectoris; I11.0 Hypertensive heart disease with heart failure; E11.9 Type 2 diabetes mellitus without complications; J44.9 Chronic obstructive pulmonary disease, unspecified; R07.9 Chest pain, unspecified; E66.9 Obesity, unspecified; I50.9 Heart failure, unspecified; F17.200 Nicotine dependence, unspecified, uncomplicated; Z79.82 Long term (current) use of aspirin; Z79.02 Long term (current) use of antithrombotics/antiplatelets; Z79.4 Long term (current) use of insulin; Z79.899 Other long term (current) drug therapy; Z88.8 Allergy status to other drugs, medicaments and biological substances; Z95.5 Presence of coronary angioplasty implant and graft; Z91.041 Radiographic dye allergy status; Z68.34 Body mass index [BMI] 34.0-34.9, adult

== ENCOUNTER → 2020-03-23 | Outpatient (CLI) | payer MEDICARE ==
[~2020-03-23] MED LIST changes: +DILA2TAB6 PO; +DOCU100C16 PO; +EZET10TA21 PO; +HEPA1INJ81 IV; +INSUDET SC; -LIDOCAINE 1% MDV 20ML VIAL SQ PRN; -LR 1,000 ML IV ONE; +PERCOCET PO; -ceFAZolin SOD 2 GM in IV 1 EA IV ONE
--- NOTE | 2020-03-30 10:49 | REP ---
INDICATION: ATHSCL MACKENZIE ART OF EXT W INT JANI ANDREA LEGS. Repeat dictation. This study is acquired on 23 March 2020 and is presented to me for repeat dictation on 30 March 2020. Patient is status post left fem-pop bypass graft and left endarterectomy. COMPARISON: Comparison study November 01, 2019.. TECHNIQUE: Bilateral lower extremity arterial Doppler ultrasound. FINDINGS: Ankle brachial indices are calculated at 0.51 on the right and 0.77 on the left. In the right lower extremity monophasic waveforms are again noted at and below the distal segment of the superficial femoral artery. The distal anterior tibial artery was not seen on the right. Moderate plaquing is observed on the right with several areas of luminal narrowing but no high-grade stenosis. On the left the fem pop bypass graft is widely patent. Its proximal anastomosis is difficult to see due to postoperative changes. Peak systolic velocities are 83, 70, and 70 cm reviewed per 2nd respectively in the proximal, mid and distal portions of the graft. The [place] proximal mid and distal superficial femoral artery on the left are occluded. Monophasic waveform is observed in the profundal and in the proximal anterior tibial artery. Velocities are improved from the prior study in the calf arteries. Right lower extremity arterial Doppler velocity chart: Right CONSTRUCTION FLAGGER PSV 78 cm/S Profundal 86 Proximal SFA 35 Mid SFA 40 Distal SFA 16 Popliteal 26/47 Proximal KARLY 18 Tibial-peroneal trunk 24 Proximal CUT OFF MAN 29/50 Distal CUT OFF MAN 50 Distal KARLY not seen Left lower extremity arterial Doppler velocity chart: Left CONSTRUCTION FLAGGER PSV 89/65 cm/S Profundal 35 Proximal SFA occluded Mid SFA occluded Distal SFA occluded Popliteal 82 Proximal KARLY 51 Tibial-peroneal trunk 80 Proximal CUT OFF MAN 106 Distal CUT OFF MAN 85 Distal KARLY 42 IMPRESSION: Improve flow left lower extremity post left fem-pop bypass graft. Graft patency and velocities as above. <Electronically signed by Eric Muñoz > 03/30/20 [id number]
== END ==
LOC: M RAD 12:19
PROVIDERS: ATTEND Physician Assistant
DX: I70.213 Atherosclerosis of native arteries of extremities with intermittent claudication, bilateral legs (principal); Z95.820 Peripheral vascular angioplasty status with implants and grafts; F17.210 Nicotine dependence, cigarettes, uncomplicated

== ENCOUNTER → 2020-07-27 | Outpatient (CLI) | payer MEDICARE ==
[~2020-07-27] MED LIST changes: +GABA-282 PO; -GABA-843 PO; +ISOS1TAB36 PO; -ISOS60TA2 PO
--- NOTE | 2020-07-27 16:16 | REP ---
INDICATION: ATH MACKENZIE ART OF EXT W INTER JANI ANDREA LEGS. COMPARISON: None. 03/23/2020. TECHNIQUE: Duplex ultrasound of the lower extremity arteries. FINDINGS: Right lower extremity: Brachial peak systole: 140 mmHg Dorsalis pedis peak systole: NA mmHg AUDIO/VIDEO TECHNICIAN peak systole: 80 mmHg DIANA: 0.57 JAVA LEAD: 77.3 velocity, triphasic phasicity Profunda: The 83 velocity, biphasic phasicity SFA prox: 37.4 velocity, biphasic phasicity SFA mid: 19.9-131.6 velocity, biphasic phasicity SFA dist: 38 point velocity, next bifid phasicity Pop: Thick 14.6 velocity, monophasic phasicity KARLY prox: Neck 12.2 velocity, biphasic phasicity Tib/P tr: The 24.0 velocity, monophasic phasicity AUDIO/VIDEO TECHNICIAN pr: A 5.7 velocity, biphasic phasicity AUDIO/VIDEO TECHNICIAN dst: 27.2 velocity, monophasic phasicity KARLY dst: 6.2 velocity, the monophasic phasicity Left lower extremity: Brachial peak systole: 135 mmHg Dorsalis pedis peak systole: NA mmHg AUDIO/VIDEO TECHNICIAN peak systole: 100 mmHg DIANA: 0.71 JAVA LEAD: 51.5 velocity, left biphasic phasicity Profunda: Dictate 46.4 velocity, 4 biphasic phasicity SFA prox: Occluded velocity, phasicity SFA mid: Occluded velocity, phasicity SFA dist: 19.1 velocity, monophasic phasicity Pop: 55.0 velocity, no by phase phasicity KARLY prox: 626.2 velocity, new biphasic phasicity Tib/P tr: The 31.2 velocity, by phase phasicity AUDIO/VIDEO TECHNICIAN pr: Dictate 35.9 velocity, biphasic phasicity AUDIO/VIDEO TECHNICIAN dst: Dict 50.8 velocity, biphasic phasicity KARLY dst: 33.8 velocity, biphasic phasicity IMPRESSION: Right lower extremity: There is again significant atheromatous plaque throughout the JAVA LEAD and SFA with numerous stenoses. There is a collateral arising from the mid SFA to the popliteal as previously. Slow flow is again noted from the proximal SFA to the ankle. Left lower extremity: The patient has a bypass graft as previously from the JAVA LEAD to the distal SFA bypassing the occluded proximal and mid SFA. The bypass graft is widely patent without stenosis. Trickle flow is noted today in the distal SFA. A focal fluid collection is again identified in the distal thigh measuring 3.5 x 4.6 x 2.4 cm. This measured 5.3 x 2.4 x 3.0 cm previously. No internal echoes are identified within this fluid collection to suggest that it is an organizing hematoma. Therefore, this may be a cyst or seroma. <Electronically signed by David Martel > 07/27/20 [id number]
== END ==
LOC: M RAD 11:53
PROVIDERS: ATTEND Physician Assistant
DX: I70.213 Atherosclerosis of native arteries of extremities with intermittent claudication, bilateral legs (principal)

== ENCOUNTER → 2022-08-01 | Outpatient (CLI) | payer MEDICARE ==
[~2022-08-01] MED LIST changes: +CLOP75TA99 PO; +DONE5TAB86 PO; -DONETAB5 PO; -KLOR20TA42 PO; -PLAV1TAB2 PO; +POTA-141 PO
== END ==
LOC: M SOG 09:49
PROVIDERS: ATTEND Orthopaedic Surgery
DX: M54.50 Low back pain, unspecified (principal)

== ENCOUNTER 2022-11-06 13:29 | Inpatient (IN) | payer MEDICARE ==
[~2022-11-06] VITALS: Ht 157.5 cm; Wt 76.0 kg
[~2022-11-06 13:29] MED LIST changes: +NITROGLYCERIN 0.4 MG/HR PATCH TD SCH; -ROSU20TA5 PO; +ROSU20TA61 PO
[2022-11-06] MEDS ORDERED: diphenhydrAMINE 50MG/ML VIAL IV STA (14:22)
[2022-11-06] MEDS ORDERED: ONDANSETRON 4MG 2ML VIAL IV ONE (14:25)
[2022-11-06] MEDS ORDERED: methylPREDNISolone 125MG 2ML VIAL IV ONE (14:25)
[2022-11-06] MEDS ORDERED: MORPHINE 2 MG/ML 1ML VIAL IV ONE (14:25)
[2022-11-06] MEDS ORDERED: ISOVUE-370 76% 100ML VIAL As Ordered ONE (14:54)
[2022-11-06 15:01] VITALS: BP 145/82; TEMP 96.5; O2SAT 88
[2022-11-06 15:09] LABS: BASO # 0.1 10^3/uL (0.0-0.2); BASO % 0.7 % (0.0-1.0); EOS # 0.1 10^3/uL (0.0-0.5); EOS % 0.7 % (0.0-3.0); HEMATOCRIT 50.8 % (36.0-47.0); HEMOGLOBIN 17.1 g/dl (12.0-15.5); LYMPH # 1.3 10^3/uL (1.5-5.0); LYMPH % 11.1 % (24.0-44.0); MEAN CORPUSCULAR HEMOGLOBIN 29.9 pg (27.0-33.0); MEAN CORPUSCULAR HGB CONC 33.7 g/dl (32.0-36.5); MEAN CORPUSCULAR VOLUME 88.8 fl (80.0-96.0); MONO # 0.8 10^3/uL (0.0-0.8); MONO % 6.7 % (2.0-8.0); NEUTROPHILS # 9.6 10^3/uL (1.5-8.5); PLATELET COUNT, AUTOMATED 206 10^3/uL (150-450); RED BLOOD COUNT 5.72 10^6/uL (4.00-5.40)
[2022-11-06 15:20] LABS: INR 1.02; PARTIAL THROMBOPLASTIN TIME 25.1 SECONDS (24.8-34.2); PROTHROMBIN TIME 13.6 SECONDS (12.5-14.5)
[2022-11-06 15:47] LABS: RSV AMPLIFICATION NEGATIVE (NEGATIVE)
[2022-11-06 16:14] LABS: ALBUMIN 3.7 G/DL (3.2-5.2); ALKALINE PHOSPHATASE 61 U/L (46-116); ALT/SGPT 23 U/L (7.0-40); AST/SGOT 33 U/L (<34); BILIRUBIN,DIRECT 0.2 MG/DL (<0.4); BILIRUBIN,TOTAL 0.7 MG/DL (0.3-1.2)
[2022-11-06 16:15] LABS: FREE T4 1.09 NG/DL (0.89-1.76); THYROID STIMULATING HORMONE 3.581 uIU/ML (0.55-4.78)
[2022-11-06 17:49] LABS: CK-MB VALUE MASS < 1.0 NG/ML (<3.6); CPK CREATINE PHOSPHOKINASE 50 U/L (34-145)
[2022-11-06] MEDS ORDERED: MED REC IN PROGRESS XX SCH (18:00)
[2022-11-06] MEDS ORDERED: ASPIRIN 325 MG TAB PO ONE (18:45)
[2022-11-06 18:58] LABS: CK-MB VALUE MASS < 1.0 NG/ML (<3.6)
[2022-11-06 19:01] LABS: CPK CREATINE PHOSPHOKINASE 53 U/L (34-145); MB/CK RELATIVE INDEX 1.88 (< OR =4)
[2022-11-06] MEDS ORDERED: LR 1,000 ML IV SCH (19:05)
[2022-11-06] MEDS ORDERED: DEXTROSE 50% 50ML SYRINGE IV PRN (19:10)
[2022-11-06] MEDS ORDERED: GLUCOSE 4GM CHEW TABLET PO PRN (19:10)
[2022-11-06] MEDS ORDERED: GLUCAGON INJ 1MG VIAL SC PRN (19:10)
[2022-11-06] MEDS ORDERED: MED REC CURRENTLY UNOBTAINABLE XX SCH (19:50)
[2022-11-06 21:31] LABS: PROCALCITONIN <0.04 ng/ml
[2022-11-06] MEDS ORDERED: POTA-149 PO (21:38)
[2022-11-06] MEDS ORDERED: OMEP1CAP73 PO (21:38)
[2022-11-06] MEDS ORDERED: RANO500T2 PO (21:38)
[2022-11-06] MEDS ORDERED: TRUL0.5I SC (21:38)
[2022-11-06] MEDS ORDERED: INSUHUMDS SC (21:38)
[2022-11-06] MEDS ORDERED: DICL1GEL3 TOP (21:38)
[2022-11-06] MEDS ORDERED: GLIM2TAB29 PO (21:38)
[2022-11-06] MEDS ORDERED: PRAV40TA2 PO (21:38)
[2022-11-06] MEDS ORDERED: ASPI-161 PO (21:38)
[2022-11-06] MEDS ORDERED: DONE5TAB82 PO (21:38)
[2022-11-06 22:24] VITALS: TEMP 97.1; O2SAT 96
[2022-11-06] MEDS: MORPHINE 4 MG/ML 1ML VIAL IV PRN (22:45)
[2022-11-06] MEDS ORDERED: HOME MED LIST COMPLETE! XX SCH (23:40)
[2022-11-07] VITALS (10 sets, daily range): BP systolic 118–179; BP diastolic 61–88; TEMP 96.1–97.5; O2SAT 91–96
[2022-11-07] MEDS: ATORVASTATIN 20 MG TAB PO SCH ×2 (00:05→20:12)
[2022-11-07] MEDS: PANTOPRAZOLE 40MG TAB (PROTONIX) PO SCH ×3 (00:06→20:12)
[2022-11-07] MEDS: DONEPEZIL 5 MG TAB PO SCH ×2 (00:06→20:12)
[2022-11-07] MEDS: INSULIN LISPRO (NovoLOG) PER UNIT SC SCH ×5 (00:18→20:08)
[2022-11-07 00:19] LABS: MAGNESIUM LEVEL 1.6 MG/DL (1.8-2.4)
[2022-11-07] MEDS ORDERED: MAALOX 30 ML SUSP *UDC PO PRN (00:25)
[2022-11-07 00:55] LABS: HEMOGLOBIN A1c 7.2 % (4.0-6.0)
[2022-11-07] MEDS ORDERED: cefTRIAXone SOD 1 GM in D5W MINI-BAG PLUS 50 ML IV SCH (02:00)
[2022-11-07] MEDS ORDERED: MAG SULF 1GM/100ML (MAG RUN) 1 GM in IV 1 EA IV ONE (02:25)
[2022-11-07] MEDS ORDERED: NS 1,000 ML IV SCH (02:25)
[2022-11-07 05:14] LABS: HEMATOCRIT 50.4 % (36.0-47.0); HEMOGLOBIN 16.9 g/dl (12.0-15.5); MEAN CORPUSCULAR HEMOGLOBIN 28.9 pg (27.0-33.0); MEAN CORPUSCULAR HGB CONC 33.5 g/dl (32.0-36.5); MEAN CORPUSCULAR VOLUME 86.3 fl (80.0-96.0); PLATELET COUNT, AUTOMATED 207 10^3/uL (150-450); RED BLOOD COUNT 5.84 10^6/uL (4.00-5.40); WHITE BLOOD COUNT 10.2 10^3/uL (4.0-10.0)
[2022-11-07 05:33] LABS: BLOOD UREA NITROGEN 13 MG/DL (9-23); CALCIUM LEVEL 9.2 MG/DL (8.3-10.6); CARBON DIOXIDE LEVEL 30 MMOL/L (20-31); CHLORIDE LEVEL 99 MMOL/L (98-107); GLOMERULAR FILTRATION RATE > 60.0 (>39); GLUCOSE, FASTING 189 MG/DL (74-106); MAGNESIUM LEVEL 2.2 MG/DL (1.8-2.4); SODIUM LEVEL 137 MMOL/L (136-145)
[2022-11-07] MEDS ORDERED: ASPIRIN 81MG ENTERIC TABLET PO SCH (09:00)
[2022-11-07] MEDS ORDERED: RANOLAZINE 500MG ER TAB PO SCH (09:00)
[2022-11-07] MEDS ORDERED: OMEPRAZOLE 20MG CAP PO SCH (09:00)
[2022-11-07] MEDS ORDERED: ATORVASTATIN 20 MG TAB PO SCH (09:00)
[2022-11-07] MEDS ORDERED: ENOXAPARIN 40MG/0.4ML SYRINGE (J1650 PER 10MG) SC SCH (09:00)
[2022-11-07] MEDS ORDERED: NITROGLYCERIN 0.4 MG/HR PATCH TD SCH (09:00)
[2022-11-07] MEDS: ASPIRIN 81MG ENTERIC TABLET PO SCH (09:32)
[2022-11-07] MEDS: GABAPENTIN 300 MG CAP PO SCH ×2 (09:32→20:12)
[2022-11-07] MEDS ORDERED: METOPROLOL TART 25 MG TABLET PO ONE (10:00)
[2022-11-07] MEDS ORDERED: fentaNYL 100 MCG/2 ML INJECTION As Ordered ONE (11:09)
[2022-11-07] MEDS ORDERED: propofoL 200 MG/20 ML VIAL As Ordered ONE (11:09)
[2022-11-07] MEDS ORDERED: LIDOCAINE 2% 100MG/5ML SDV (FOR ANES.) As Ordered ONE (11:09)
[2022-11-07] MEDS ORDERED: MIDAZOLAM INJ 2MG/2ML VIAL As Ordered ONE (11:10)
[2022-11-07] MEDS ORDERED: KETAMINE HCL 200MG/20ML VIAL As Ordered ONE (11:43)
[2022-11-07] MEDS ORDERED: ceFAZolin 2 GM/D5W 50 ML IV BAG As Ordered ONE (12:49)
[2022-11-07] MEDS ORDERED: ePHEDrine SULFATE 25 MG/5 ML(5MG/ML) SYRINGE As Ordered ONE (12:50)
[2022-11-07] MEDS ORDERED: PHENYLephrine 500MCG 5ML (100MCG/ML) SYRINGE As Ordered ONE ×2 (12:50→13:16)
[2022-11-07] MEDS ORDERED: HYDROMORPHONE HCL 0.5 MG/ 0.5 ML SYRINGE IV PRN (14:05)
[2022-11-07] MEDS ORDERED: fentaNYL 100 MCG/2 ML INJECTION IV PRN (14:05)
[2022-11-07] MEDS ORDERED: ONDANSETRON 4MG 2ML VIAL IV PRN (14:05)
[2022-11-07] MEDS ORDERED: oxyCODONE 5MG TAB PO PRN (14:05)
[2022-11-07] MEDS ORDERED: LR 1,000 ML IV SCH (14:05)
[2022-11-07] MEDS ORDERED: GLUCAGON INJ 1MG VIAL SC PRN (15:40)
[2022-11-07] MEDS ORDERED: GLUCOSE 4GM CHEW TABLET PO PRN (15:40)
[2022-11-07] MEDS ORDERED: DEXTROSE 50% 50ML SYRINGE IV PRN (15:40)
[2022-11-07] MEDS ORDERED: methylPREDNISolone 40MG 1ML VIAL IV ONE (17:15)
[2022-11-07] MEDS ORDERED: diphenhydrAMINE 50MG/ML VIAL IV STA (17:15)
[2022-11-07] MEDS ORDERED: ISOVUE-370 76% 100ML VIAL As Ordered ONE (18:08)
[2022-11-07] MEDS: ACETAMINOPHEN 500 MG TAB PO PRN (19:43)
[2022-11-07] MEDS: ceFAZolin SOD 1 GM in D5W MINI-BAG PLUS 50 ML IV SCH (20:13)
[2022-11-07] MEDS ORDERED: PREVNAR-20 VACCINE 0.5ML SYRINGE IM.IMMUN ONE (21:00)
[2022-11-07] MEDS ORDERED: PRAVASTATIN 20 MG TAB PO SCH (21:00)
[2022-11-07] MEDS: MORPHINE 4 MG/ML 1ML VIAL IV PRN (23:25)
[2022-11-08 03:31] VITALS: BP 131/68; TEMP 97.1; O2SAT 96
[2022-11-08] MEDS: ceFAZolin SOD 1 GM in D5W MINI-BAG PLUS 50 ML IV SCH ×2 (04:08→12:22)
[2022-11-08] MEDS: ACETAMINOPHEN 500 MG TAB PO PRN ×3 (05:35→18:20)
[2022-11-08 07:49] LABS: BASO % 0.1 % (0.0-1.0); HEMATOCRIT 48.1 % (36.0-47.0); HEMOGLOBIN 15.6 g/dl (12.0-15.5); LYMPH # 1.2 10^3/uL (1.5-5.0); LYMPH % 7.5 % (24.0-44.0); MEAN CORPUSCULAR HEMOGLOBIN 28.7 pg (27.0-33.0); MEAN CORPUSCULAR HGB CONC 32.4 g/dl (32.0-36.5); MEAN CORPUSCULAR VOLUME 88.4 fl (80.0-96.0); MONO % 6.7 % (2.0-8.0); NEUTROPHILS % 85.2 % (36.0-66.0); PLATELET COUNT, AUTOMATED 176 10^3/uL (150-450); RED BLOOD COUNT 5.44 10^6/uL (4.00-5.40); WHITE BLOOD COUNT 15.3 10^3/uL (4.0-10.0)
[2022-11-08 08:03] VITALS: BP 156/81; TEMP 97.6; O2SAT 94
[2022-11-08 08:25] LABS: ALBUMIN 3.3 G/DL (3.2-5.2); ALKALINE PHOSPHATASE 55 U/L (46-116); ALT/SGPT 15 U/L (7.0-40); AST/SGOT 15 U/L (<34); BILIRUBIN,TOTAL 0.4 MG/DL (0.3-1.2); BLOOD UREA NITROGEN 18 MG/DL (9-23); CALCIUM LEVEL 8.5 MG/DL (8.3-10.6); CARBON DIOXIDE LEVEL 26 MMOL/L (20-31); CHLORIDE LEVEL 102 MMOL/L (98-107); CREATININE FOR GFR 0.74 MG/DL (0.55-1.30); GLOMERULAR FILTRATION RATE > 60.0 (>39); GLUCOSE, FASTING 203 MG/DL (74-106); SODIUM LEVEL 138 MMOL/L (136-145); TOTAL PROTEIN 6.4 G/DL (5.7-8.2)
[2022-11-08] MEDS ORDERED: NICOTINE 21MG/24HR 1 EA TRANSDERMAL TD PRN (09:00)
[2022-11-08] MEDS: ENOXAPARIN 40MG/0.4ML SYRINGE (J1650 PER 10MG) SC SCH (09:03)
[2022-11-08] MEDS: PANTOPRAZOLE 40MG TAB (PROTONIX) PO SCH ×2 (09:03→20:19)
[2022-11-08] MEDS: ASPIRIN 81MG ENTERIC TABLET PO SCH (09:03)
[2022-11-08] MEDS: CLOPIDOGREL 75 MG TAB PO SCH (09:04)
[2022-11-08] MEDS: GABAPENTIN 300 MG CAP PO SCH ×2 (09:04→20:19)
[2022-11-08] MEDS: INSULIN LISPRO (NovoLOG) PER UNIT SC SCH ×4 (09:06→20:11)
[2022-11-08 11:07] LABS: PROCALCITONIN 0.06 ng/ml
[2022-11-08] MEDS ORDERED: FUROSEMIDE 20MG/2ML VIAL IV ONE (11:15)
[2022-11-08 11:32] VITALS: BP 128/59; TEMP 97.7; O2SAT 93
[2022-11-08] MEDS: SUCRALFATE SUSP 1GM/10ML UD PO SCH ×3 (12:21→20:19)
[2022-11-08 20:00] VITALS: BP 150/72; TEMP 96.9; O2SAT 96
[2022-11-08] MEDS: ATORVASTATIN 20 MG TAB PO SCH (20:19)
[2022-11-08] MEDS: DONEPEZIL 5 MG TAB PO SCH (20:19)
[2022-11-08] MEDS: cefTRIAXone SOD 1 GM in D5W MINI-BAG PLUS 50 ML IV SCH (20:20)
[2022-11-09] VITALS (14 sets, daily range): BP systolic 131–165; BP diastolic 63–74; TEMP 96–98.3; O2SAT 85–96
[2022-11-09] MEDS: ACETAMINOPHEN 500 MG TAB PO PRN ×2 (04:33→12:49)
[2022-11-09 06:38] LABS: HEMATOCRIT 44.6 % (36.0-47.0); HEMOGLOBIN 14.6 g/dl (12.0-15.5); MEAN CORPUSCULAR HEMOGLOBIN 28.6 pg (27.0-33.0); MEAN CORPUSCULAR HGB CONC 32.7 g/dl (32.0-36.5); MEAN CORPUSCULAR VOLUME 87.3 fl (80.0-96.0); PLATELET COUNT, AUTOMATED 188 10^3/uL (150-450); RED BLOOD COUNT 5.11 10^6/uL (4.00-5.40); WHITE BLOOD COUNT 12.8 10^3/uL (4.0-10.0)
[2022-11-09 07:52] LABS: BASO # 0.1 10^3/uL (0.0-0.2); BASO % 0.4 % (0.0-1.0); EOS # 0.1 10^3/uL (0.0-0.5); EOS % 0.9 % (0.0-3.0); LYMPH # 1.6 10^3/uL (1.5-5.0); LYMPH % 12.9 % (24.0-44.0); MONO # 1.2 10^3/uL (0.0-0.8); MONO % 9.8 % (2.0-8.0); NEUTROPHILS # 9.5 10^3/uL (1.5-8.5); NEUTROPHILS % 75.7 % (36.0-66.0)
[2022-11-09 08:05] LABS: PLATELET ESTIMATE NORMAL (NORMAL)
[2022-11-09] MEDS: ASPIRIN 81MG ENTERIC TABLET PO SCH (08:38)
[2022-11-09] MEDS: POTASSIUM CHLORIDE 10MEQ SR TABLET PO SCH (08:39)
[2022-11-09] MEDS: PANTOPRAZOLE 40MG TAB (PROTONIX) PO SCH ×2 (08:40→20:20)
[2022-11-09] MEDS: GABAPENTIN 300 MG CAP PO SCH ×2 (08:40→20:20)
[2022-11-09] MEDS: CLOPIDOGREL 75 MG TAB PO SCH (08:40)
[2022-11-09] MEDS: FUROSEMIDE 40 MG TAB PO SCH (08:40)
[2022-11-09] MEDS: INSULIN LISPRO (NovoLOG) PER UNIT SC SCH ×4 (08:43→20:27)
[2022-11-09] MEDS: ENOXAPARIN 40MG/0.4ML SYRINGE (J1650 PER 10MG) SC SCH (08:44)
[2022-11-09] MEDS: SUCRALFATE SUSP 1GM/10ML UD PO SCH ×4 (08:52→20:20)
[2022-11-09 11:04] LABS: ALBUMIN 3.2 G/DL (3.2-5.2); ALKALINE PHOSPHATASE 55 U/L (46-116); ALT/SGPT 11 U/L (7.0-40); AST/SGOT 14 U/L (<34); BILIRUBIN,TOTAL 0.6 MG/DL (0.3-1.2); BLOOD UREA NITROGEN 16 MG/DL (9-23); CALCIUM LEVEL 8.3 MG/DL (8.3-10.6); CARBON DIOXIDE LEVEL 28 MMOL/L (20-31); CHLORIDE LEVEL 103 MMOL/L (98-107); CREATININE FOR GFR 0.67 MG/DL (0.55-1.30); GLOMERULAR FILTRATION RATE > 60.0 (>39); GLUCOSE, FASTING 145 MG/DL (74-106); MAGNESIUM LEVEL 1.8 MG/DL (1.8-2.4); POTASSIUM SERUM 3.5 MMOL/L (3.5-5.1); SODIUM LEVEL 141 MMOL/L (136-145); TOTAL PROTEIN 6.3 G/DL (5.7-8.2)
[2022-11-09] MEDS: DONEPEZIL 5 MG TAB PO SCH (20:20)
[2022-11-09] MEDS: ATORVASTATIN 20 MG TAB PO SCH (20:20)
[2022-11-09] MEDS: cefTRIAXone SOD 1 GM in D5W MINI-BAG PLUS 50 ML IV SCH (20:23)
[2022-11-10] VITALS (26 sets, daily range): BP systolic 142–153; BP diastolic 60–78; TEMP 96.6–97.6; O2SAT 91–96
[2022-11-10] MEDS: ACETAMINOPHEN 500 MG TAB PO PRN ×3 (06:21→20:23)
[2022-11-10] MEDS: SUCRALFATE SUSP 1GM/10ML UD PO SCH ×4 (09:50→20:17)
[2022-11-10] MEDS: ENOXAPARIN 40MG/0.4ML SYRINGE (J1650 PER 10MG) SC SCH (09:51)
[2022-11-10] MEDS: POTASSIUM CHLORIDE 10MEQ SR TABLET PO SCH (09:52)
[2022-11-10] MEDS: CLOPIDOGREL 75 MG TAB PO SCH (09:52)
[2022-11-10] MEDS: GABAPENTIN 300 MG CAP PO SCH ×2 (09:52→20:18)
[2022-11-10] MEDS: ASPIRIN 81MG ENTERIC TABLET PO SCH (09:52)
[2022-11-10] MEDS: PANTOPRAZOLE 40MG TAB (PROTONIX) PO SCH ×2 (09:53→20:18)
[2022-11-10] MEDS: FUROSEMIDE 40 MG TAB PO SCH (09:53)
[2022-11-10] MEDS: INSULIN LISPRO (NovoLOG) PER UNIT SC SCH ×4 (09:54→20:18)
[2022-11-10] MEDS: CEFUROXIME 500 MG TAB PO SCH ×2 (11:15→20:17)
[2022-11-10] MEDS: DONEPEZIL 5 MG TAB PO SCH (20:18)
[2022-11-10] MEDS: ATORVASTATIN 20 MG TAB PO SCH (20:18)
[2022-11-11] VITALS (15 sets, daily range): BP systolic 132–165; BP diastolic 61–74; TEMP 96.7–97.6; O2SAT 86–99
[2022-11-11] MEDS: ACETAMINOPHEN 500 MG TAB PO PRN ×3 (00:27→12:33)
[2022-11-11 05:07] LABS: BASO # 0.1 10^3/uL (0.0-0.2); BASO % 0.9 % (0.0-1.0); EOS # 0.4 10^3/uL (0.0-0.5); EOS % 3.7 % (0.0-3.0); HEMATOCRIT 44.4 % (36.0-47.0); HEMOGLOBIN 14.9 g/dl (12.0-15.5); LYMPH # 2.4 10^3/uL (1.5-5.0); LYMPH % 23.8 % (24.0-44.0); MEAN CORPUSCULAR HEMOGLOBIN 28.9 pg (27.0-33.0); MEAN CORPUSCULAR HGB CONC 33.6 g/dl (32.0-36.5); MEAN CORPUSCULAR VOLUME 86.2 fl (80.0-96.0); MONO # 1.1 10^3/uL (0.0-0.8); MONO % 10.8 % (2.0-8.0); NEUTROPHILS % 60.4 % (36.0-66.0); PLATELET COUNT, AUTOMATED 221 10^3/uL (150-450); RED BLOOD COUNT 5.15 10^6/uL (4.00-5.40); WHITE BLOOD COUNT 9.9 10^3/uL (4.0-10.0)
[2022-11-11 05:35] LABS: BLOOD UREA NITROGEN 13 MG/DL (9-23); CALCIUM LEVEL 8.1 MG/DL (8.3-10.6); CARBON DIOXIDE LEVEL 28 MMOL/L (20-31); CHLORIDE LEVEL 105 MMOL/L (98-107); CREATININE FOR GFR 0.74 MG/DL (0.55-1.30); GLOMERULAR FILTRATION RATE > 60.0 (>39); GLUCOSE, FASTING 169 MG/DL (74-106); POTASSIUM SERUM 3.4 MMOL/L (3.5-5.1); SODIUM LEVEL 141 MMOL/L (136-145)
[2022-11-11] MEDS ORDERED: POTASSIUM CHLORIDE 10% LIQ 20MEQ/15ML UDC PO ONE (06:25)
[2022-11-11 07:33] LABS: MAGNESIUM LEVEL 1.8 MG/DL (1.8-2.4)
[2022-11-11] MEDS: ENOXAPARIN 40MG/0.4ML SYRINGE (J1650 PER 10MG) SC SCH (08:23)
[2022-11-11] MEDS: INSULIN LISPRO (NovoLOG) PER UNIT SC SCH ×4 (08:23→21:00)
[2022-11-11] MEDS: CLOPIDOGREL 75 MG TAB PO SCH (08:24)
[2022-11-11] MEDS: SUCRALFATE SUSP 1GM/10ML UD PO SCH ×4 (08:24→20:20)
[2022-11-11] MEDS: POTASSIUM CHLORIDE 10MEQ SR TABLET PO SCH (08:25)
[2022-11-11] MEDS: ASPIRIN 81MG ENTERIC TABLET PO SCH (08:25)
[2022-11-11] MEDS: FUROSEMIDE 40 MG TAB PO SCH (08:25)
[2022-11-11] MEDS: GABAPENTIN 300 MG CAP PO SCH ×2 (08:25→20:20)
[2022-11-11] MEDS: PANTOPRAZOLE 40MG TAB (PROTONIX) PO SCH ×2 (08:25→20:20)
[2022-11-11] MEDS: CEFUROXIME 500 MG TAB PO SCH ×2 (09:00→20:23)
[2022-11-11] MEDS: PERCOCET 5MG/325MG TAB PO PRN (19:49)
[2022-11-11] MEDS: DONEPEZIL 5 MG TAB PO SCH (20:20)
[2022-11-11] MEDS: ATORVASTATIN 20 MG TAB PO SCH (20:20)
[2022-11-12] VITALS (12 sets, daily range): BP systolic 132–148; BP diastolic 68–71; TEMP 96.8–97.7; O2SAT 86–98
[2022-11-12] MEDS: ACETAMINOPHEN 500 MG TAB PO PRN ×3 (03:17→12:41)
[2022-11-12 06:24] LABS: BASO # 0.1 10^3/uL (0.0-0.2); BASO % 0.9 % (0.0-1.0); EOS # 0.4 10^3/uL (0.0-0.5); EOS % 3.7 % (0.0-3.0); HEMOGLOBIN 14.5 g/dl (12.0-15.5); LYMPH % 26.7 % (24.0-44.0); MEAN CORPUSCULAR HEMOGLOBIN 28.8 pg (27.0-33.0); MEAN CORPUSCULAR VOLUME 87.5 fl (80.0-96.0); MONO # 1.1 10^3/uL (0.0-0.8); MONO % 9.8 % (2.0-8.0); NEUTROPHILS # 6.5 10^3/uL (1.5-8.5); NEUTROPHILS % 58.3 % (36.0-66.0); PLATELET COUNT, AUTOMATED 240 10^3/uL (150-450); RED BLOOD COUNT 5.03 10^6/uL (4.00-5.40); WHITE BLOOD COUNT 11.1 10^3/uL (4.0-10.0)
[2022-11-12 06:43] LABS: BLOOD UREA NITROGEN 16 MG/DL (9-23); CALCIUM LEVEL 8.2 MG/DL (8.3-10.6); CARBON DIOXIDE LEVEL 26 MMOL/L (20-31); CHLORIDE LEVEL 104 MMOL/L (98-107); GLOMERULAR FILTRATION RATE > 60.0 (>39); GLUCOSE, FASTING 151 MG/DL (74-106); POTASSIUM SERUM 3.9 MMOL/L (3.5-5.1); SODIUM LEVEL 138 MMOL/L (136-145)
[2022-11-12] MEDS: SUCRALFATE SUSP 1GM/10ML UD PO SCH ×4 (07:30→20:50)
[2022-11-12] MEDS: ENOXAPARIN 40MG/0.4ML SYRINGE (J1650 PER 10MG) SC SCH (08:32)
[2022-11-12] MEDS: INSULIN LISPRO (NovoLOG) PER UNIT SC SCH ×4 (08:32→20:42)
[2022-11-12] MEDS: PANTOPRAZOLE 40MG TAB (PROTONIX) PO SCH ×2 (08:33→20:51)
[2022-11-12] MEDS: ASPIRIN 81MG ENTERIC TABLET PO SCH (08:33)
[2022-11-12] MEDS: GABAPENTIN 300 MG CAP PO SCH ×2 (08:33→20:51)
[2022-11-12] MEDS: CLOPIDOGREL 75 MG TAB PO SCH (08:33)
[2022-11-12] MEDS: CEFUROXIME 500 MG TAB PO SCH ×2 (08:33→20:50)
[2022-11-12] MEDS: FUROSEMIDE 40 MG TAB PO SCH (08:33)
[2022-11-12] MEDS: POTASSIUM CHLORIDE 10MEQ SR TABLET PO SCH (08:33)
[2022-11-12] MEDS: ATORVASTATIN 20 MG TAB PO SCH (20:51)
[2022-11-12] MEDS: PERCOCET 5MG/325MG TAB PO PRN (20:51)
[2022-11-12] MEDS: DONEPEZIL 5 MG TAB PO SCH (20:51)
[2022-11-13] MEDS: ACETAMINOPHEN 500 MG TAB PO PRN ×3 (01:26→15:00)
[2022-11-13 03:18] VITALS: BP 139/68; TEMP 97.3; O2SAT 95
[2022-11-13 04:47] LABS: BASO # 0.1 10^3/uL (0.0-0.2); BASO % 0.9 % (0.0-1.0); EOS # 0.3 10^3/uL (0.0-0.5); EOS % 2.8 % (0.0-3.0); HEMATOCRIT 42.7 % (36.0-47.0); HEMOGLOBIN 14.4 g/dl (12.0-15.5); LYMPH # 2.6 10^3/uL (1.5-5.0); LYMPH % 22.1 % (24.0-44.0); MEAN CORPUSCULAR HEMOGLOBIN 29.3 pg (27.0-33.0); MEAN CORPUSCULAR HGB CONC 33.7 g/dl (32.0-36.5); MONO # 1.1 10^3/uL (0.0-0.8); MONO % 9.7 % (2.0-8.0); NEUTROPHILS # 7.5 10^3/uL (1.5-8.5); PLATELET COUNT, AUTOMATED 257 10^3/uL (150-450); RED BLOOD COUNT 4.91 10^6/uL (4.00-5.40); WHITE BLOOD COUNT 11.8 10^3/uL (4.0-10.0)
[2022-11-13 05:43] LABS: BLOOD UREA NITROGEN 16 MG/DL (9-23); CALCIUM LEVEL 8.3 MG/DL (8.3-10.6); CARBON DIOXIDE LEVEL 25 MMOL/L (20-31); CHLORIDE LEVEL 104 MMOL/L (98-107); CREATININE FOR GFR 0.76 MG/DL (0.55-1.30); GLOMERULAR FILTRATION RATE > 60.0 (>39); GLUCOSE, FASTING 174 MG/DL (74-106); POTASSIUM SERUM 4.1 MMOL/L (3.5-5.1); SODIUM LEVEL 140 MMOL/L (136-145)
[2022-11-13 08:00] VITALS: BP 134/62; TEMP 96.4; O2SAT 94
[2022-11-13] MEDS: INSULIN LISPRO (NovoLOG) PER UNIT SC SCH ×4 (08:40→20:44)
[2022-11-13] MEDS: ASPIRIN 81MG ENTERIC TABLET PO SCH (08:41)
[2022-11-13] MEDS: SUCRALFATE SUSP 1GM/10ML UD PO SCH ×4 (08:41→20:43)
[2022-11-13] MEDS: CEFUROXIME 500 MG TAB PO SCH ×2 (08:41→20:44)
[2022-11-13] MEDS: FUROSEMIDE 40 MG TAB PO SCH (08:42)
[2022-11-13] MEDS: PANTOPRAZOLE 40MG TAB (PROTONIX) PO SCH ×2 (08:42→20:44)
[2022-11-13] MEDS: POTASSIUM CHLORIDE 10MEQ SR TABLET PO SCH (08:42)
[2022-11-13] MEDS: GABAPENTIN 300 MG CAP PO SCH ×2 (08:42→20:44)
[2022-11-13] MEDS: CLOPIDOGREL 75 MG TAB PO SCH (08:42)
[2022-11-13] MEDS: ENOXAPARIN 40MG/0.4ML SYRINGE (J1650 PER 10MG) SC SCH (08:43)
[2022-11-13] MEDS: valACYclovir HCL 500 MG TAB PO SCH ×2 (11:53→20:43)
[2022-11-13 14:25] VITALS: BP 139/65
[2022-11-13 19:33] VITALS: BP 132/70; TEMP 97.1; O2SAT 95
[2022-11-13] MEDS: ATORVASTATIN 20 MG TAB PO SCH (20:43)
[2022-11-13] MEDS: PERCOCET 5MG/325MG TAB PO PRN (20:43)
[2022-11-13] MEDS: DONEPEZIL 5 MG TAB PO SCH (20:44)
[2022-11-13] MEDS ORDERED: NS 500 ML IV ONE (21:25)
[2022-11-13 22:26] VITALS: BP 183/82
[2022-11-13 23:46] VITALS: BP 165/79; TEMP 97.1; O2SAT 95
[2022-11-14] VITALS (10 sets, daily range): BP systolic 75–157; BP diastolic 40–87; TEMP 96.7–97.8; O2SAT 93–99
[2022-11-14] MEDS ORDERED: NS 1,000 ML IV ONE (04:05)
[2022-11-14] MEDS ORDERED: NS 500 ML IV ONE ×3 (04:05→16:00)
[2022-11-14 06:19] LABS: BASO # 0.1 10^3/uL (0.0-0.2); BASO % 0.9 % (0.0-1.0); EOS # 0.3 10^3/uL (0.0-0.5); EOS % 3.3 % (0.0-3.0); HEMATOCRIT 40.9 % (36.0-47.0); HEMOGLOBIN 13.5 g/dl (12.0-15.5); LYMPH # 2.2 10^3/uL (1.5-5.0); LYMPH % 21.3 % (24.0-44.0); MEAN CORPUSCULAR HEMOGLOBIN 28.6 pg (27.0-33.0); MEAN CORPUSCULAR VOLUME 86.7 fl (80.0-96.0); MONO # 1.2 10^3/uL (0.0-0.8); MONO % 11.9 % (2.0-8.0); NEUTROPHILS # 6.3 10^3/uL (1.5-8.5); NEUTROPHILS % 61.8 % (36.0-66.0); PLATELET COUNT, AUTOMATED 267 10^3/uL (150-450); RED BLOOD COUNT 4.72 10^6/uL (4.00-5.40); WHITE BLOOD COUNT 10.2 10^3/uL (4.0-10.0)
[2022-11-14 06:42] LABS: BLOOD UREA NITROGEN 16 MG/DL (9-23); CALCIUM LEVEL 8.3 MG/DL (8.3-10.6); CARBON DIOXIDE LEVEL 26 MMOL/L (20-31); CHLORIDE LEVEL 107 MMOL/L (98-107); CHOLESTEROL LEVEL 128 MG/DL (<200); CHOLESTEROL RISK RATIO 4.19 (<5); CREATININE FOR GFR 0.73 MG/DL (0.55-1.30); GLOMERULAR FILTRATION RATE > 60.0 (>39); GLUCOSE, FASTING 166 MG/DL (74-106); HDL CHOLESTEROL 30.5 MG/DL (>40); LDL CHOLESTEROL 69.9 MG/DL (<100); NON-HDL-C 97.5 MG/DL; POTASSIUM SERUM 3.7 MMOL/L (3.5-5.1); SODIUM LEVEL 140 MMOL/L (136-145); TRIGLYCERIDES LEVEL 138 MG/DL (<150)
[2022-11-14] MEDS: INSULIN LISPRO (NovoLOG) PER UNIT SC SCH ×4 (07:30→21:00)
[2022-11-14] MEDS: SUCRALFATE SUSP 1GM/10ML UD PO SCH ×4 (08:44→21:18)
[2022-11-14] MEDS: valACYclovir HCL 500 MG TAB PO SCH ×2 (08:44→21:19)
[2022-11-14] MEDS: ENOXAPARIN 40MG/0.4ML SYRINGE (J1650 PER 10MG) SC SCH (08:44)
[2022-11-14] MEDS: ACETAMINOPHEN 500 MG TAB PO PRN ×2 (08:45→16:22)
[2022-11-14] MEDS: PANTOPRAZOLE 40MG TAB (PROTONIX) PO SCH ×2 (08:45→21:18)
[2022-11-14] MEDS: GABAPENTIN 300 MG CAP PO SCH ×2 (08:45→21:18)
[2022-11-14] MEDS: ASPIRIN 81MG ENTERIC TABLET PO SCH (08:45)
[2022-11-14] MEDS: CLOPIDOGREL 75 MG TAB PO SCH (08:45)
[2022-11-14] MEDS: FUROSEMIDE 40 MG TAB PO SCH (08:46)
[2022-11-14] MEDS: POTASSIUM CHLORIDE 10MEQ SR TABLET PO SCH (08:46)
[2022-11-14] MEDS: DONEPEZIL 5 MG TAB PO SCH (21:18)
[2022-11-14] MEDS: ATORVASTATIN 20 MG TAB PO SCH (21:18)
[2022-11-15] VITALS (10 sets, daily range): BP systolic 100–169; BP diastolic 63–74; TEMP 97–98; O2SAT 90–98
[2022-11-15 05:32] LABS: BASO # 0.1 10^3/uL (0.0-0.2); BASO % 0.9 % (0.0-1.0); EOS # 0.3 10^3/uL (0.0-0.5); HEMATOCRIT 40.7 % (36.0-47.0); HEMOGLOBIN 13.6 g/dl (12.0-15.5); LYMPH # 2.4 10^3/uL (1.5-5.0); LYMPH % 23.2 % (24.0-44.0); MEAN CORPUSCULAR HEMOGLOBIN 28.8 pg (27.0-33.0); MEAN CORPUSCULAR HGB CONC 33.4 g/dl (32.0-36.5); MONO # 1.1 10^3/uL (0.0-0.8); MONO % 10.8 % (2.0-8.0); NEUTROPHILS # 6.4 10^3/uL (1.5-8.5); NEUTROPHILS % 61.3 % (36.0-66.0); PLATELET COUNT, AUTOMATED 276 10^3/uL (150-450); RED BLOOD COUNT 4.73 10^6/uL (4.00-5.40); WHITE BLOOD COUNT 10.4 10^3/uL (4.0-10.0)
[2022-11-15 05:53] LABS: BLOOD UREA NITROGEN 12 MG/DL (9-23); CALCIUM LEVEL 8.5 MG/DL (8.3-10.6); CARBON DIOXIDE LEVEL 27 MMOL/L (20-31); CHLORIDE LEVEL 106 MMOL/L (98-107); CREATININE FOR GFR 0.67 MG/DL (0.55-1.30); GLOMERULAR FILTRATION RATE > 60.0 (>39); GLUCOSE, FASTING 168 MG/DL (74-106); POTASSIUM SERUM 3.7 MMOL/L (3.5-5.1); SODIUM LEVEL 141 MMOL/L (136-145)
[2022-11-15] MEDS: GABAPENTIN 300 MG CAP PO SCH ×2 (08:16→20:23)
[2022-11-15] MEDS: SUCRALFATE SUSP 1GM/10ML UD PO SCH ×4 (08:16→20:23)
[2022-11-15] MEDS: ENOXAPARIN 40MG/0.4ML SYRINGE (J1650 PER 10MG) SC SCH (08:16)
[2022-11-15] MEDS: ASPIRIN 81MG ENTERIC TABLET PO SCH (08:16)
[2022-11-15] MEDS: INSULIN LISPRO (NovoLOG) PER UNIT SC SCH ×4 (08:16→20:23)
[2022-11-15] MEDS: CLOPIDOGREL 75 MG TAB PO SCH (08:17)
[2022-11-15] MEDS: POTASSIUM CHLORIDE 10MEQ SR TABLET PO SCH (08:17)
[2022-11-15] MEDS: valACYclovir HCL 500 MG TAB PO SCH ×2 (08:17→20:23)
[2022-11-15] MEDS: PANTOPRAZOLE 40MG TAB (PROTONIX) PO SCH ×2 (08:17→20:23)
[2022-11-15] MEDS: ACETAMINOPHEN 500 MG TAB PO PRN ×3 (08:17→22:38)
[2022-11-15] MEDS ORDERED: NS 500 ML IV ONE (14:00)
[2022-11-15] MEDS: DONEPEZIL 5 MG TAB PO SCH (20:23)
[2022-11-15] MEDS: ATORVASTATIN 20 MG TAB PO SCH (20:23)
[2022-11-16 05:40] LABS: BASO # 0.1 10^3/uL (0.0-0.2); BASO % 1.2 % (0.0-1.0); EOS # 0.3 10^3/uL (0.0-0.5); EOS % 3.1 % (0.0-3.0); HEMATOCRIT 40.4 % (36.0-47.0); HEMOGLOBIN 13.2 g/dl (12.0-15.5); LYMPH % 19.3 % (24.0-44.0); MEAN CORPUSCULAR HEMOGLOBIN 28.7 pg (27.0-33.0); MEAN CORPUSCULAR HGB CONC 32.7 g/dl (32.0-36.5); MEAN CORPUSCULAR VOLUME 87.8 fl (80.0-96.0); MONO # 1.1 10^3/uL (0.0-0.8); MONO % 10.4 % (2.0-8.0); NEUTROPHILS # 6.7 10^3/uL (1.5-8.5); NEUTROPHILS % 65.3 % (36.0-66.0); PLATELET COUNT, AUTOMATED 260 10^3/uL (150-450); WHITE BLOOD COUNT 10.3 10^3/uL (4.0-10.0)
[2022-11-16 06:08] LABS: BLOOD UREA NITROGEN 13 MG/DL (9-23); CALCIUM LEVEL 8.5 MG/DL (8.3-10.6); CARBON DIOXIDE LEVEL 25 MMOL/L (20-31); CHLORIDE LEVEL 108 MMOL/L (98-107); CREATININE FOR GFR 0.63 MG/DL (0.55-1.30); GLOMERULAR FILTRATION RATE > 60.0 (>39); GLUCOSE, FASTING 213 MG/DL (74-106); POTASSIUM SERUM 3.7 MMOL/L (3.5-5.1); SODIUM LEVEL 142 MMOL/L (136-145)
[2022-11-16] MEDS: ASPIRIN 81MG ENTERIC TABLET PO SCH (09:21)
[2022-11-16] MEDS: POTASSIUM CHLORIDE 10MEQ SR TABLET PO SCH (09:21)
[2022-11-16] MEDS: PANTOPRAZOLE 40MG TAB (PROTONIX) PO SCH ×2 (09:21→20:06)
[2022-11-16] MEDS: valACYclovir HCL 500 MG TAB PO SCH ×2 (09:21→20:06)
[2022-11-16] MEDS: ENOXAPARIN 40MG/0.4ML SYRINGE (J1650 PER 10MG) SC SCH (09:22)
[2022-11-16] MEDS: PERCOCET 5MG/325MG TAB PO PRN (09:22)
[2022-11-16] MEDS: CLOPIDOGREL 75 MG TAB PO SCH (09:22)
[2022-11-16] MEDS: GABAPENTIN 300 MG CAP PO SCH ×2 (09:22→20:06)
[2022-11-16] MEDS: INSULIN LISPRO (NovoLOG) PER UNIT SC SCH ×4 (09:25→20:06)
[2022-11-16] MEDS: SUCRALFATE SUSP 1GM/10ML UD PO SCH ×4 (09:30→20:06)
[2022-11-16] MEDS ORDERED: FUROSEMIDE 20 MG TAB PO ONE (16:15)
[2022-11-16 18:35] VITALS: BP 159/72; TEMP 98.5; O2SAT 95
[2022-11-16 20:00] VITALS: BP 148/65; TEMP 98.6; O2SAT 98
[2022-11-16] MEDS: ATORVASTATIN 20 MG TAB PO SCH (20:06)
[2022-11-16] MEDS: DONEPEZIL 5 MG TAB PO SCH (20:06)
[2022-11-17 04:59] LABS: BASO # 0.1 10^3/uL (0.0-0.2); EOS # 0.4 10^3/uL (0.0-0.5); HEMATOCRIT 38.6 % (36.0-47.0); HEMOGLOBIN 12.6 g/dl (12.0-15.5); LYMPH % 25.7 % (24.0-44.0); MEAN CORPUSCULAR HEMOGLOBIN 28.8 pg (27.0-33.0); MEAN CORPUSCULAR HGB CONC 32.6 g/dl (32.0-36.5); MEAN CORPUSCULAR VOLUME 88.3 fl (80.0-96.0); MONO # 1.1 10^3/uL (0.0-0.8); MONO % 9.7 % (2.0-8.0); NEUTROPHILS # 6.9 10^3/uL (1.5-8.5); PLATELET COUNT, AUTOMATED 287 10^3/uL (150-450); RED BLOOD COUNT 4.37 10^6/uL (4.00-5.40); WHITE BLOOD COUNT 11.6 10^3/uL (4.0-10.0)
[2022-11-17 05:24] LABS: BLOOD UREA NITROGEN 13 MG/DL (9-23); CALCIUM LEVEL 8.5 MG/DL (8.3-10.6); CARBON DIOXIDE LEVEL 25 MMOL/L (20-31); CHLORIDE LEVEL 108 MMOL/L (98-107); CREATININE FOR GFR 0.69 MG/DL (0.55-1.30); GLOMERULAR FILTRATION RATE > 60.0 (>39); GLUCOSE, FASTING 187 MG/DL (74-106); POTASSIUM SERUM 3.8 MMOL/L (3.5-5.1); SODIUM LEVEL 144 MMOL/L (136-145)
[2022-11-17 08:04] VITALS: BP 142/80; TEMP 97; O2SAT 98
[2022-11-17] MEDS: ASPIRIN 81MG ENTERIC TABLET PO SCH (08:18)
[2022-11-17] MEDS: GABAPENTIN 300 MG CAP PO SCH ×2 (08:18→21:37)
[2022-11-17] MEDS: CLOPIDOGREL 75 MG TAB PO SCH (08:19)
[2022-11-17] MEDS: valACYclovir HCL 500 MG TAB PO SCH ×2 (08:19→21:37)
[2022-11-17] MEDS: SUCRALFATE SUSP 1GM/10ML UD PO SCH ×4 (08:19→21:38)
[2022-11-17] MEDS: FUROSEMIDE 20 MG TAB PO SCH (08:19)
[2022-11-17] MEDS: POTASSIUM CHLORIDE 10MEQ SR TABLET PO SCH (08:19)
[2022-11-17] MEDS: ENOXAPARIN 40MG/0.4ML SYRINGE (J1650 PER 10MG) SC SCH (08:20)
[2022-11-17] MEDS: PANTOPRAZOLE 40MG TAB (PROTONIX) PO SCH ×2 (08:20→21:37)
[2022-11-17] MEDS: INSULIN LISPRO (NovoLOG) PER UNIT SC SCH ×4 (08:22→21:00)
[2022-11-17] MEDS: PERCOCET 5MG/325MG TAB PO PRN (10:33)
[2022-11-17] MEDS: ACETAMINOPHEN 500 MG TAB PO PRN (16:59)
[2022-11-17 19:45] VITALS: BP 127/60; TEMP 97.3; O2SAT 97
[2022-11-17 20:20] VITALS: BP 113/62; TEMP 97.9
[2022-11-17] MEDS: ATORVASTATIN 20 MG TAB PO SCH (21:37)
[2022-11-17] MEDS: DONEPEZIL 5 MG TAB PO SCH (21:37)
[2022-11-17 22:00] VITALS: BP 169/89; TEMP 97.9
[2022-11-18] MEDS: ACETAMINOPHEN 500 MG TAB PO PRN (04:27)
[2022-11-18 06:00] VITALS: BP 142/67; TEMP 97
[2022-11-18 06:06] LABS: BASO # 0.1 10^3/uL (0.0-0.2); EOS # 0.3 10^3/uL (0.0-0.5); EOS % 2.8 % (0.0-3.0); HEMATOCRIT 40.4 % (36.0-47.0); HEMOGLOBIN 13.2 g/dl (12.0-15.5); LYMPH # 2.2 10^3/uL (1.5-5.0); LYMPH % 21.8 % (24.0-44.0); MEAN CORPUSCULAR HEMOGLOBIN 28.7 pg (27.0-33.0); MEAN CORPUSCULAR HGB CONC 32.7 g/dl (32.0-36.5); MEAN CORPUSCULAR VOLUME 87.8 fl (80.0-96.0); MONO # 0.8 10^3/uL (0.0-0.8); NEUTROPHILS # 6.7 10^3/uL (1.5-8.5); NEUTROPHILS % 65.7 % (36.0-66.0); PLATELET COUNT, AUTOMATED 287 10^3/uL (150-450); WHITE BLOOD COUNT 10.2 10^3/uL (4.0-10.0)
[2022-11-18 06:34] LABS: BLOOD UREA NITROGEN 16 MG/DL (9-23); CALCIUM LEVEL 8.6 MG/DL (8.3-10.6); CARBON DIOXIDE LEVEL 25 MMOL/L (20-31); CHLORIDE LEVEL 106 MMOL/L (98-107); CREATININE FOR GFR 0.66 MG/DL (0.55-1.30); GLOMERULAR FILTRATION RATE > 60.0 (>39); GLUCOSE, FASTING 228 MG/DL (74-106); POTASSIUM SERUM 3.8 MMOL/L (3.5-5.1); SODIUM LEVEL 140 MMOL/L (136-145)
[2022-11-18] MEDS ORDERED: NITROGLYCERIN 0.4 MG/HR PATCH TD SCH (09:00)
[2022-11-18] MEDS: ENOXAPARIN 40MG/0.4ML SYRINGE (J1650 PER 10MG) SC SCH (09:57)
[2022-11-18] MEDS: ASPIRIN 81MG ENTERIC TABLET PO SCH (09:58)
[2022-11-18] MEDS: SUCRALFATE SUSP 1GM/10ML UD PO SCH ×2 (09:58→12:38)
[2022-11-18] MEDS: PANTOPRAZOLE 40MG TAB (PROTONIX) PO SCH (09:58)
[2022-11-18] MEDS: INSULIN LISPRO (NovoLOG) PER UNIT SC SCH ×2 (09:58→12:39)
[2022-11-18] MEDS: FUROSEMIDE 20 MG TAB PO SCH (09:59)
[2022-11-18] MEDS: CLOPIDOGREL 75 MG TAB PO SCH (09:59)
[2022-11-18] MEDS: POTASSIUM CHLORIDE 10MEQ SR TABLET PO SCH (09:59)
[2022-11-18] MEDS: GABAPENTIN 300 MG CAP PO SCH (09:59)
[2022-11-18] MEDS ORDERED: LOVE1INJ SC (10:41)
[2022-11-18] MEDS ORDERED: FURO20TA2 PO (10:41)
[2022-11-18] MEDS ORDERED: PANT40TA29 PO (10:41)
[2022-11-18] MEDS ORDERED: SUCR1ORA PO (10:41)
[2022-11-18] MEDS ORDERED: INSUHUMDS SC (10:41)
[2022-11-18] MEDS ORDERED: CLOP75TA2 PO (10:41)
[2022-11-18] MEDS ORDERED: ATOR1TAB21 PO (10:41)
[2022-11-18] MEDS ORDERED: PERCOCET PO (10:41)
[2022-11-18 11:25] LABS: CK-MB VALUE MASS 1.2 NG/ML (<3.6)
[2022-11-18 11:28] LABS: CPK CREATINE PHOSPHOKINASE 44 U/L (34-145); MB/CK RELATIVE INDEX 2.72 (< OR =4)
[2022-11-18] MEDS ORDERED: FURO40TA2 PO (11:31)
[2022-11-18 12:05] LABS: MB/CK RELATIVE INDEX 2.38 (< OR =4)
[2022-11-18 12:06] VITALS: BP 145/69
== END 2022-11-18 14:15 | DRG 480 ==
LOC: M ED 13:29 → EDBD 13:29 → M ED INP 19:07 → ENRESERV 20:02 → M PCU 22:20 → M MS5PR 11-17 20:30
PROVIDERS: ADMIT Internal Medicine; ATTEND Internal Medicine
PROC: B246ZZZ Ultrasonography of Right and Left Heart (ICD-10-PCS; 2022-11-07)
PROC: 0QSB06Z Reposition Right Lower Femur with Intramedullary Internal Fixation Device, Open Approach (ICD-10-PCS; principal; 2022-11-07 16:30)
DX: S72.044A Nondisplaced fracture of base of neck of right femur, initial encounter for closed fracture (principal); I63.532 Cerebral infarction due to unspecified occlusion or stenosis of left posterior cerebral artery; J96.01 Acute respiratory failure with hypoxia; I63.81 Other cerebral infarction due to occlusion or stenosis of small artery; I50.32 Chronic diastolic (congestive) heart failure; I47.1 Supraventricular tachycardia; G81.91 Hemiplegia, unspecified affecting right dominant side; N39.0 Urinary tract infection, site not specified; I25.10 Atherosclerotic heart disease of native coronary artery without angina pectoris; E11.51 Type 2 diabetes mellitus with diabetic peripheral angiopathy without gangrene; I11.0 Hypertensive heart disease with heart failure; E78.5 Hyperlipidemia, unspecified; D75.1 Secondary polycythemia; R33.9 Retention of urine, unspecified; Z66 Do not resuscitate; Z79.82 Long term (current) use of aspirin; Z79.4 Long term (current) use of insulin; J45.909 Unspecified asthma, uncomplicated; Z79.899 Other long term (current) drug therapy; Z88.8 Allergy status to other drugs, medicaments and biological substances; Z91.041 Radiographic dye allergy status; R20.0 Anesthesia of skin; F03.90 Unspecified dementia, unspecified severity, without behavioral disturbance, psychotic disturbance, mood disturbance, and anxiety; K21.9 Gastro-esophageal reflux disease without esophagitis; E11.40 Type 2 diabetes mellitus with diabetic neuropathy, unspecified; I65.23 Occlusion and stenosis of bilateral carotid arteries; I67.2 Cerebral atherosclerosis; F17.210 Nicotine dependence, cigarettes, uncomplicated; G47.33 Obstructive sleep apnea (adult) (pediatric); Z95.820 Peripheral vascular angioplasty status with implants and grafts; Z96.652 Presence of left artificial knee joint; Z95.5 Presence of coronary angioplasty implant and graft; W19.XXXA Unspecified fall, initial encounter; Y92.009 Unspecified place in unspecified non-institutional (private) residence as the place of occurrence of the external cause; Y93.9 Activity, unspecified; Y99.8 Other external cause status

== ENCOUNTER 2022-11-18 11:35 | Inpatient (IN) | payer MEDICARE ==
[~2022-11-18] VITALS: Ht 157.5 cm; Wt 75.2 kg
[~2022-11-18 11:35] MED LIST changes: +ASPI-161 PO; +ATOR1TAB21 PO; +CLOP75TA2 PO; +DICL100G10 TOP; +DONE5TAB82 PO; +FURO20TA2 PO; +GLIM2TAB29 PO; +INSUHUMDS SC; +LOVE1INJ SC; -NITROGLYCERIN 0.4 MG/HR PATCH TD SCH; +OMEP1CAP73 PO; +PANT40TA29 PO; +POTA-149 PO; +PRAV40TA2 PO; +RANO500T2 PO; +SUCR1ORA PO; +TRUL0.5I SC
[2022-11-18 14:00] VITALS: BP 102/55; TEMP 97.2; O2SAT 99
[2022-11-18] MEDS ORDERED: DEXTROSE 50% 50ML SYRINGE IV PRN (16:30)
[2022-11-18] MEDS ORDERED: BISACODYL 10MG SUPP PR PRN (16:30)
[2022-11-18] MEDS ORDERED: GLUCAGON INJ 1MG VIAL SC PRN (16:30)
[2022-11-18] MEDS ORDERED: GLUCOSE 4GM CHEW TABLET PO PRN (16:30)
[2022-11-18] MEDS: SUCRALFATE 1 GM TAB PO SCH ×2 (17:41→20:31)
[2022-11-18] MEDS: INSULIN LISPRO (NovoLOG) PER UNIT SC SCH ×2 (17:42→21:00)
[2022-11-18] MEDS: oxyCODONE 5MG TAB PO PRN (17:45)
[2022-11-18 20:00] VITALS: BP 135/58; TEMP 97.6; O2SAT 97
[2022-11-18] MEDS: GABAPENTIN 300 MG CAP PO SCH (20:30)
[2022-11-18] MEDS: DOCUSATE SODIUM 100MG CAPSULE PO SCH (20:30)
[2022-11-18] MEDS: ATORVASTATIN 20 MG TAB PO SCH (20:30)
[2022-11-18] MEDS: PANTOPRAZOLE 40MG TAB (PROTONIX) PO SCH (20:31)
[2022-11-18] MEDS: ACETAMINOPHEN 500 MG TAB PO SCH (20:31)
[2022-11-18] MEDS: DONEPEZIL 5 MG TAB PO SCH (20:31)
[2022-11-18] MEDS: SENNA 8.6 MG TAB (SENOKOT) PO SCH (20:31)
[2022-11-18] MEDS: REMEDY PHYTOPLEX Z-GUARD PASTE 113GM TUBE (FROM STOREROOM PRODUCT) TOP SCH (21:00)
[2022-11-19 06:00] VITALS: BP 157/68; TEMP 96.9; O2SAT 95
[2022-11-19 06:09] LABS: BASO # 0.1 10^3/uL (0.0-0.2); EOS # 0.3 10^3/uL (0.0-0.5); EOS % 2.6 % (0.0-3.0); HEMOGLOBIN 12.5 g/dl (12.0-15.5); LYMPH # 2.7 10^3/uL (1.5-5.0); LYMPH % 25.5 % (24.0-44.0); MEAN CORPUSCULAR HGB CONC 32.9 g/dl (32.0-36.5); MEAN CORPUSCULAR VOLUME 88.2 fl (80.0-96.0); MONO # 0.9 10^3/uL (0.0-0.8); MONO % 8.9 % (2.0-8.0); NEUTROPHILS # 6.5 10^3/uL (1.5-8.5); NEUTROPHILS % 61.4 % (36.0-66.0); PLATELET COUNT, AUTOMATED 308 10^3/uL (150-450); RED BLOOD COUNT 4.31 10^6/uL (4.00-5.40); WHITE BLOOD COUNT 10.6 10^3/uL (4.0-10.0)
[2022-11-19 06:33] LABS: ALKALINE PHOSPHATASE 77 U/L (46-116); ALT/SGPT 17 U/L (7.0-40); AST/SGOT 13 U/L (<34); BILIRUBIN,TOTAL 0.8 MG/DL (0.3-1.2); BLOOD UREA NITROGEN 14 MG/DL (9-23); CALCIUM LEVEL 8.8 MG/DL (8.3-10.6); CARBON DIOXIDE LEVEL 28 MMOL/L (20-31); CHLORIDE LEVEL 105 MMOL/L (98-107); CREATININE FOR GFR 0.73 MG/DL (0.55-1.30); GLOMERULAR FILTRATION RATE > 60.0 (>39); GLUCOSE, FASTING 178 MG/DL (74-106); SODIUM LEVEL 142 MMOL/L (136-145)
[2022-11-19] MEDS ORDERED: HOME MED LIST COMPLETE! XX SCH (07:45)
[2022-11-19] MEDS: SUCRALFATE 1 GM TAB PO SCH ×4 (08:57→20:06)
[2022-11-19] MEDS: POTASSIUM CHLORIDE 10MEQ SR TABLET PO SCH (08:58)
[2022-11-19] MEDS: DOCUSATE SODIUM 100MG CAPSULE PO SCH ×2 (08:59→20:06)
[2022-11-19] MEDS: PANTOPRAZOLE 40MG TAB (PROTONIX) PO SCH ×2 (09:00→20:07)
[2022-11-19] MEDS: ACETAMINOPHEN 500 MG TAB PO SCH ×3 (09:00→20:07)
[2022-11-19] MEDS: REMEDY PHYTOPLEX Z-GUARD PASTE 113GM TUBE (FROM STOREROOM PRODUCT) TOP SCH ×3 (09:00→20:08)
[2022-11-19] MEDS: GABAPENTIN 300 MG CAP PO SCH ×2 (09:00→20:06)
[2022-11-19] MEDS: ASPIRIN 81MG ENTERIC TABLET PO SCH (09:01)
[2022-11-19] MEDS: FUROSEMIDE 40 MG TAB PO SCH (09:01)
[2022-11-19] MEDS: CLOPIDOGREL 75 MG TAB PO SCH (09:01)
[2022-11-19] MEDS: INSULIN LISPRO (NovoLOG) PER UNIT SC SCH ×4 (09:01→20:08)
[2022-11-19] MEDS: ENOXAPARIN 40MG/0.4ML SYRINGE (J1650 PER 10MG) SC SCH (09:02)
[2022-11-19] MEDS: LIDOCAINE 5% (LIDODERM) PATCH TD SCH (09:04)
[2022-11-19 14:00] VITALS: BP 137/67; TEMP 97.6; O2SAT 100
[2022-11-19 19:52] VITALS: BP 150/90; TEMP 98; O2SAT 96
[2022-11-19] MEDS: ATORVASTATIN 20 MG TAB PO SCH (20:06)
[2022-11-19] MEDS: SENNA 8.6 MG TAB (SENOKOT) PO SCH (20:06)
[2022-11-19] MEDS: DONEPEZIL 5 MG TAB PO SCH (20:07)
[2022-11-19] MEDS: oxyCODONE 5MG TAB PO PRN (20:07)
[2022-11-20 05:40] VITALS: BP 140/68; TEMP 97.8; O2SAT 94
[2022-11-20 07:00] VITALS: BP 140/68; TEMP 97.8; O2SAT 94
[2022-11-20] MEDS: CLOPIDOGREL 75 MG TAB PO SCH (08:31)
[2022-11-20] MEDS: PANTOPRAZOLE 40MG TAB (PROTONIX) PO SCH ×2 (08:31→20:44)
[2022-11-20] MEDS: DOCUSATE SODIUM 100MG CAPSULE PO SCH ×2 (08:31→20:44)
[2022-11-20] MEDS: ASPIRIN 81MG ENTERIC TABLET PO SCH (08:31)
[2022-11-20] MEDS: SUCRALFATE 1 GM TAB PO SCH ×4 (08:31→20:44)
[2022-11-20] MEDS: GABAPENTIN 300 MG CAP PO SCH ×2 (08:32→20:45)
[2022-11-20] MEDS: FUROSEMIDE 40 MG TAB PO SCH (08:32)
[2022-11-20] MEDS: POTASSIUM CHLORIDE 10MEQ SR TABLET PO SCH (08:32)
[2022-11-20] MEDS: ACETAMINOPHEN 500 MG TAB PO SCH ×3 (08:32→20:44)
[2022-11-20] MEDS: INSULIN LISPRO (NovoLOG) PER UNIT SC SCH ×4 (08:33→20:45)
[2022-11-20] MEDS: ENOXAPARIN 40MG/0.4ML SYRINGE (J1650 PER 10MG) SC SCH (08:34)
[2022-11-20] MEDS: LIDOCAINE 5% (LIDODERM) PATCH TD SCH (08:34)
[2022-11-20] MEDS: REMEDY PHYTOPLEX Z-GUARD PASTE 113GM TUBE (FROM STOREROOM PRODUCT) TOP SCH ×3 (08:36→20:46)
[2022-11-20 14:00] VITALS: BP 121/60; TEMP 97; O2SAT 97
[2022-11-20] MEDS: oxyCODONE 5MG TAB PO PRN (17:21)
[2022-11-20 20:00] VITALS: BP 144/67; TEMP 98.2; O2SAT 97
[2022-11-20] MEDS: DONEPEZIL 5 MG TAB PO SCH (20:44)
[2022-11-20] MEDS: ATORVASTATIN 20 MG TAB PO SCH (20:45)
[2022-11-20] MEDS: SENNA 8.6 MG TAB (SENOKOT) PO SCH (20:45)
[2022-11-21 05:22] VITALS: BP 125/60; TEMP 97.2; O2SAT 97
[2022-11-21] MEDS: INSULIN LISPRO (NovoLOG) PER UNIT SC SCH ×4 (07:59→20:20)
[2022-11-21] MEDS: ACETAMINOPHEN 500 MG TAB PO SCH ×3 (08:00→20:20)
[2022-11-21] MEDS: ENOXAPARIN 40MG/0.4ML SYRINGE (J1650 PER 10MG) SC SCH (08:01)
[2022-11-21] MEDS: DOCUSATE SODIUM 100MG CAPSULE PO SCH ×2 (08:02→20:20)
[2022-11-21] MEDS: LIDOCAINE 5% (LIDODERM) PATCH TD SCH (08:02)
[2022-11-21] MEDS: FUROSEMIDE 40 MG TAB PO SCH (08:03)
[2022-11-21] MEDS: SUCRALFATE 1 GM TAB PO SCH ×4 (08:03→20:20)
[2022-11-21] MEDS: ASPIRIN 81MG ENTERIC TABLET PO SCH (08:03)
[2022-11-21] MEDS: GABAPENTIN 300 MG CAP PO SCH ×3 (08:03→20:20)
[2022-11-21] MEDS: CLOPIDOGREL 75 MG TAB PO SCH (08:03)
[2022-11-21] MEDS: POTASSIUM CHLORIDE 10MEQ SR TABLET PO SCH (08:04)
[2022-11-21] MEDS: REMEDY PHYTOPLEX Z-GUARD PASTE 113GM TUBE (FROM STOREROOM PRODUCT) TOP SCH ×3 (09:00→19:23)
[2022-11-21] MEDS: PANTOPRAZOLE 40MG TAB (PROTONIX) PO SCH ×2 (09:43→20:20)
[2022-11-21] MEDS: oxyCODONE 5MG TAB PO SCH (09:50)
[2022-11-21 14:00] VITALS: BP 124/55; TEMP 97.8; O2SAT 96
[2022-11-21 20:00] VITALS: BP 125/59; TEMP 97.8; O2SAT 96
[2022-11-21] MEDS: traZODone 25MG PER 1/2 TABLET PO SCH (20:20)
[2022-11-21] MEDS: SENNA 8.6 MG TAB (SENOKOT) PO SCH (20:20)
[2022-11-21] MEDS: ATORVASTATIN 20 MG TAB PO SCH (20:20)
[2022-11-21] MEDS: DONEPEZIL 5 MG TAB PO SCH (20:20)
[2022-11-22 06:00] VITALS: BP 124/68; TEMP 96.7; O2SAT 96
[2022-11-22 06:08] LABS: BASO # 0.2 10^3/uL (0.0-0.2); BASO % 1.7 % (0.0-1.0); EOS # 0.3 10^3/uL (0.0-0.5); EOS % 2.9 % (0.0-3.0); HEMATOCRIT 39.2 % (36.0-47.0); HEMOGLOBIN 12.5 g/dl (12.0-15.5); LYMPH # 2.4 10^3/uL (1.5-5.0); LYMPH % 26.8 % (24.0-44.0); MEAN CORPUSCULAR HEMOGLOBIN 28.4 pg (27.0-33.0); MEAN CORPUSCULAR HGB CONC 31.9 g/dl (32.0-36.5); MEAN CORPUSCULAR VOLUME 89.1 fl (80.0-96.0); MONO % 11.6 % (2.0-8.0); NEUTROPHILS % 56.7 % (36.0-66.0); PLATELET COUNT, AUTOMATED 310 10^3/uL (150-450); WHITE BLOOD COUNT 8.8 10^3/uL (4.0-10.0)
[2022-11-22 06:19] LABS: BLOOD UREA NITROGEN 17 MG/DL (9-23); CALCIUM LEVEL 8.8 MG/DL (8.3-10.6); CARBON DIOXIDE LEVEL 26 MMOL/L (20-31); CHLORIDE LEVEL 107 MMOL/L (98-107); GLOMERULAR FILTRATION RATE > 60.0 (>39); GLUCOSE, FASTING 187 MG/DL (74-106); POTASSIUM SERUM 3.9 MMOL/L (3.5-5.1); SODIUM LEVEL 142 MMOL/L (136-145)
[2022-11-22] MEDS: oxyCODONE 5MG TAB PO SCH (07:39)
[2022-11-22] MEDS: REMEDY PHYTOPLEX Z-GUARD PASTE 113GM TUBE (FROM STOREROOM PRODUCT) TOP SCH ×3 (09:00→19:28)
[2022-11-22] MEDS: INSULIN LISPRO (NovoLOG) PER UNIT SC SCH ×4 (09:44→19:28)
[2022-11-22] MEDS: LIDOCAINE 5% (LIDODERM) PATCH TD SCH (09:45)
[2022-11-22] MEDS: metFORMIN (GLUCOPHAGE) 500MG TAB PO SCH (09:45)
[2022-11-22] MEDS: SUCRALFATE 1 GM TAB PO SCH ×4 (09:45→20:15)
[2022-11-22] MEDS: ENOXAPARIN 40MG/0.4ML SYRINGE (J1650 PER 10MG) SC SCH (09:45)
[2022-11-22] MEDS: ASPIRIN 81MG ENTERIC TABLET PO SCH (09:47)
[2022-11-22] MEDS: POTASSIUM CHLORIDE 10MEQ SR TABLET PO SCH (09:47)
[2022-11-22] MEDS: CLOPIDOGREL 75 MG TAB PO SCH (09:47)
[2022-11-22] MEDS: GABAPENTIN 300 MG CAP PO SCH ×3 (09:47→20:15)
[2022-11-22] MEDS: FUROSEMIDE 40 MG TAB PO SCH (09:47)
[2022-11-22] MEDS: DOCUSATE SODIUM 100MG CAPSULE PO SCH ×2 (09:48→20:15)
[2022-11-22] MEDS: PANTOPRAZOLE 40MG TAB (PROTONIX) PO SCH ×2 (09:48→20:15)
[2022-11-22] MEDS: ACETAMINOPHEN 500 MG TAB PO SCH ×3 (09:49→20:16)
[2022-11-22 14:00] VITALS: BP 132/62; TEMP 97.5; O2SAT 96
[2022-11-22 20:00] VITALS: BP 131/60; TEMP 97.5; O2SAT 92
[2022-11-22] MEDS: DONEPEZIL 5 MG TAB PO SCH (20:15)
[2022-11-22] MEDS: SENNA 8.6 MG TAB (SENOKOT) PO SCH (20:15)
[2022-11-22] MEDS: traZODone 25MG PER 1/2 TABLET PO SCH (20:15)
[2022-11-22] MEDS: ATORVASTATIN 20 MG TAB PO SCH (20:16)
[2022-11-23 06:00] VITALS: BP 128/67; TEMP 96.5; O2SAT 94
[2022-11-23] MEDS: oxyCODONE 5MG TAB PO SCH (06:35)
[2022-11-23] MEDS: LIDOCAINE 5% (LIDODERM) PATCH TD SCH (08:45)
[2022-11-23] MEDS: ASPIRIN 81MG ENTERIC TABLET PO SCH (08:46)
[2022-11-23] MEDS: INSULIN LISPRO (NovoLOG) PER UNIT SC SCH ×4 (08:46→21:00)
[2022-11-23] MEDS: ENOXAPARIN 40MG/0.4ML SYRINGE (J1650 PER 10MG) SC SCH (08:46)
[2022-11-23] MEDS: GABAPENTIN 300 MG CAP PO SCH ×3 (08:46→21:05)
[2022-11-23] MEDS: CLOPIDOGREL 75 MG TAB PO SCH (08:47)
[2022-11-23] MEDS: SUCRALFATE 1 GM TAB PO SCH ×4 (08:47→21:05)
[2022-11-23] MEDS: FUROSEMIDE 40 MG TAB PO SCH (08:47)
[2022-11-23] MEDS: metFORMIN (GLUCOPHAGE) 500MG TAB PO SCH (08:47)
[2022-11-23] MEDS: POTASSIUM CHLORIDE 10MEQ SR TABLET PO SCH (08:47)
[2022-11-23] MEDS: PANTOPRAZOLE 40MG TAB (PROTONIX) PO SCH ×2 (08:47→21:05)
[2022-11-23] MEDS: DOCUSATE SODIUM 100MG CAPSULE PO SCH ×2 (08:47→21:06)
[2022-11-23] MEDS: ACETAMINOPHEN 500 MG TAB PO SCH ×3 (08:48→21:05)
[2022-11-23] MEDS: REMEDY PHYTOPLEX Z-GUARD PASTE 113GM TUBE (FROM STOREROOM PRODUCT) TOP SCH ×3 (08:49→21:00)
[2022-11-23 14:00] VITALS: BP 130/64; TEMP 98.1; O2SAT 97
[2022-11-23 20:00] VITALS: BP 148/65; TEMP 96.7; O2SAT 96
[2022-11-23] MEDS: ATORVASTATIN 20 MG TAB PO SCH (21:05)
[2022-11-23] MEDS: traZODone 25MG PER 1/2 TABLET PO SCH (21:06)
[2022-11-23] MEDS: DONEPEZIL 5 MG TAB PO SCH (21:06)
[2022-11-23] MEDS: SENNA 8.6 MG TAB (SENOKOT) PO SCH (21:06)
[2022-11-24 06:00] VITALS: BP 178/86; TEMP 97.3; O2SAT 98
[2022-11-24] MEDS: oxyCODONE 5MG TAB PO SCH (06:23)
[2022-11-24 06:25] VITALS: BP 124/58
[2022-11-24] MEDS: LIDOCAINE 5% (LIDODERM) PATCH TD SCH (08:39)
[2022-11-24] MEDS: DOCUSATE SODIUM 100MG CAPSULE PO SCH ×2 (08:40→20:51)
[2022-11-24] MEDS: FUROSEMIDE 40 MG TAB PO SCH (08:40)
[2022-11-24] MEDS: metFORMIN (GLUCOPHAGE) 500MG TAB PO SCH (08:40)
[2022-11-24] MEDS: INSULIN LISPRO (NovoLOG) PER UNIT SC SCH ×4 (08:40→20:34)
[2022-11-24] MEDS: ASPIRIN 81MG ENTERIC TABLET PO SCH (08:40)
[2022-11-24] MEDS: ACETAMINOPHEN 500 MG TAB PO SCH ×3 (08:41→20:52)
[2022-11-24] MEDS: PANTOPRAZOLE 40MG TAB (PROTONIX) PO SCH ×2 (08:41→20:52)
[2022-11-24] MEDS: POTASSIUM CHLORIDE 10MEQ SR TABLET PO SCH (08:41)
[2022-11-24] MEDS: CLOPIDOGREL 75 MG TAB PO SCH (08:41)
[2022-11-24] MEDS: GABAPENTIN 300 MG CAP PO SCH ×3 (08:41→20:51)
[2022-11-24] MEDS: ENOXAPARIN 40MG/0.4ML SYRINGE (J1650 PER 10MG) SC SCH (08:41)
[2022-11-24] MEDS: REMEDY PHYTOPLEX Z-GUARD PASTE 113GM TUBE (FROM STOREROOM PRODUCT) TOP SCH ×3 (08:42→20:34)
[2022-11-24] MEDS: SUCRALFATE 1 GM TAB PO SCH ×4 (08:52→20:52)
[2022-11-24 14:00] VITALS: BP 93/61; TEMP 97.6; O2SAT 95
[2022-11-24 20:10] VITALS: BP 141/75; TEMP 97.6; O2SAT 99
[2022-11-24] MEDS: ATORVASTATIN 20 MG TAB PO SCH (20:51)
[2022-11-24] MEDS: DONEPEZIL 5 MG TAB PO SCH (20:51)
[2022-11-24] MEDS: traZODone 25MG PER 1/2 TABLET PO SCH (20:51)
[2022-11-24] MEDS: SENNA 8.6 MG TAB (SENOKOT) PO SCH (20:52)
[2022-11-25 06:00] VITALS: BP 147/70; TEMP 98; O2SAT 95
[2022-11-25] MEDS: oxyCODONE 5MG TAB PO SCH (06:18)
[2022-11-25] MEDS: LIDOCAINE 5% (LIDODERM) PATCH TD SCH (07:51)
[2022-11-25] MEDS: ACETAMINOPHEN 500 MG TAB PO SCH ×3 (07:52→20:23)
[2022-11-25] MEDS: ASPIRIN 81MG ENTERIC TABLET PO SCH (07:53)
[2022-11-25] MEDS: CLOPIDOGREL 75 MG TAB PO SCH (07:53)
[2022-11-25] MEDS: PANTOPRAZOLE 40MG TAB (PROTONIX) PO SCH ×2 (07:53→20:23)
[2022-11-25] MEDS: GABAPENTIN 300 MG CAP PO SCH ×3 (07:53→20:23)
[2022-11-25] MEDS: POTASSIUM CHLORIDE 10MEQ SR TABLET PO SCH (07:53)
[2022-11-25] MEDS: SUCRALFATE 1 GM TAB PO SCH ×4 (07:53→20:22)
[2022-11-25] MEDS: DOCUSATE SODIUM 100MG CAPSULE PO SCH ×2 (07:54→20:22)
[2022-11-25] MEDS: metFORMIN (GLUCOPHAGE) 500MG TAB PO SCH (07:54)
[2022-11-25] MEDS: INSULIN LISPRO (NovoLOG) PER UNIT SC SCH ×4 (07:55→21:00)
[2022-11-25] MEDS: FUROSEMIDE 40 MG TAB PO SCH (07:55)
[2022-11-25] MEDS: ENOXAPARIN 40MG/0.4ML SYRINGE (J1650 PER 10MG) SC SCH (08:14)
[2022-11-25] MEDS: REMEDY PHYTOPLEX Z-GUARD PASTE 113GM TUBE (FROM STOREROOM PRODUCT) TOP SCH ×3 (08:14→21:00)
[2022-11-25 08:26] VITALS: BP 102/64
[2022-11-25 14:00] VITALS: BP 154/72; TEMP 97.8; O2SAT 97
[2022-11-25] MEDS: NITROGLYCERIN 0.4MG SUBL TABLET SL PRN ×2 (19:43→19:48)
[2022-11-25 19:48] VITALS: BP 88/54
[2022-11-25 20:00] VITALS: BP 127/67; TEMP 97.9; O2SAT 95
[2022-11-25] MEDS: SENNA 8.6 MG TAB (SENOKOT) PO SCH (20:22)
[2022-11-25] MEDS: ATORVASTATIN 20 MG TAB PO SCH (20:22)
[2022-11-25] MEDS: traZODone 25MG PER 1/2 TABLET PO SCH (20:22)
[2022-11-25] MEDS: DONEPEZIL 5 MG TAB PO SCH (20:22)
[2022-11-25 20:46] LABS: CK-MB VALUE MASS 1.1 NG/ML (<3.6)
[2022-11-25 20:47] LABS: MB/CK RELATIVE INDEX 2.68 (< OR =4)
[2022-11-25] MEDS ORDERED: MAALOX 30 ML SUSP *UDC PO ONE (21:00)
[2022-11-26 06:00] VITALS: BP 138/68; TEMP 96.9; O2SAT 94
[2022-11-26] MEDS: oxyCODONE 5MG TAB PO SCH (06:13)
[2022-11-26] MEDS: metFORMIN (GLUCOPHAGE) 500MG TAB PO SCH (08:30)
[2022-11-26] MEDS: ASPIRIN 81MG ENTERIC TABLET PO SCH (08:30)
[2022-11-26] MEDS: CLOPIDOGREL 75 MG TAB PO SCH (08:31)
[2022-11-26] MEDS: POTASSIUM CHLORIDE 10MEQ SR TABLET PO SCH (08:31)
[2022-11-26] MEDS: FUROSEMIDE 40 MG TAB PO SCH (08:31)
[2022-11-26] MEDS: GABAPENTIN 300 MG CAP PO SCH ×3 (08:31→20:55)
[2022-11-26] MEDS: PANTOPRAZOLE 40MG TAB (PROTONIX) PO SCH ×2 (08:31→20:55)
[2022-11-26] MEDS: ACETAMINOPHEN 500 MG TAB PO SCH ×3 (08:31→20:55)
[2022-11-26] MEDS: SUCRALFATE 1 GM TAB PO SCH ×4 (08:32→20:55)
[2022-11-26] MEDS: INSULIN LISPRO (NovoLOG) PER UNIT SC SCH ×4 (08:32→20:56)
[2022-11-26] MEDS: LIDOCAINE 5% (LIDODERM) PATCH TD SCH (08:33)
[2022-11-26] MEDS: REMEDY PHYTOPLEX Z-GUARD PASTE 113GM TUBE (FROM STOREROOM PRODUCT) TOP SCH ×3 (08:33→20:56)
[2022-11-26] MEDS: ENOXAPARIN 40MG/0.4ML SYRINGE (J1650 PER 10MG) SC SCH (08:33)
[2022-11-26] MEDS: DOCUSATE SODIUM 100MG CAPSULE PO SCH ×2 (08:34→20:56)
[2022-11-26 11:00] LABS: BASO # 0.1 10^3/uL (0.0-0.2); BASO % 1.5 % (0.0-1.0); EOS # 0.2 10^3/uL (0.0-0.5); EOS % 2.2 % (0.0-3.0); HEMATOCRIT 41.1 % (36.0-47.0); HEMOGLOBIN 13.2 g/dl (12.0-15.5); LYMPH # 2.5 10^3/uL (1.5-5.0); LYMPH % 30.9 % (24.0-44.0); MEAN CORPUSCULAR HEMOGLOBIN 28.9 pg (27.0-33.0); MEAN CORPUSCULAR HGB CONC 32.1 g/dl (32.0-36.5); MEAN CORPUSCULAR VOLUME 90.1 fl (80.0-96.0); MONO # 0.9 10^3/uL (0.0-0.8); MONO % 10.6 % (2.0-8.0); NEUTROPHILS # 4.5 10^3/uL (1.5-8.5); NEUTROPHILS % 54.6 % (36.0-66.0); PLATELET COUNT, AUTOMATED 346 10^3/uL (150-450); RED BLOOD COUNT 4.56 10^6/uL (4.00-5.40); WHITE BLOOD COUNT 8.2 10^3/uL (4.0-10.0)
[2022-11-26 11:32] LABS: BLOOD UREA NITROGEN 17 MG/DL (9-23); CALCIUM LEVEL 9.1 MG/DL (8.3-10.6); CARBON DIOXIDE LEVEL 29 MMOL/L (20-31); CHLORIDE LEVEL 103 MMOL/L (98-107); CREATININE FOR GFR 0.81 MG/DL (0.55-1.30); GLOMERULAR FILTRATION RATE > 60.0 (>39); GLUCOSE, FASTING 199 MG/DL (74-106); POTASSIUM SERUM 3.8 MMOL/L (3.5-5.1); SODIUM LEVEL 142 MMOL/L (136-145)
[2022-11-26 14:00] VITALS: BP 145/65; TEMP 97.3; O2SAT 93
[2022-11-26 20:00] VITALS: BP 142/81; TEMP 97.1; O2SAT 97
[2022-11-26] MEDS: ATORVASTATIN 20 MG TAB PO SCH (20:55)
[2022-11-26] MEDS: DONEPEZIL 5 MG TAB PO SCH (20:55)
[2022-11-26] MEDS: SENNA 8.6 MG TAB (SENOKOT) PO SCH (20:56)
[2022-11-26] MEDS ORDERED: traZODone 25MG PER 1/2 TABLET PO PRN (21:00)
[2022-11-26] MEDS ORDERED: MAALOX 30 ML SUSP *UDC PO ONE (21:55)
[2022-11-27 06:00] VITALS: BP 136/70; TEMP 97.3; O2SAT 93
[2022-11-27] MEDS: oxyCODONE 5MG TAB PO SCH (06:21)
[2022-11-27] MEDS: FUROSEMIDE 40 MG TAB PO SCH (07:39)
[2022-11-27] MEDS: LIDOCAINE 5% (LIDODERM) PATCH TD SCH (07:39)
[2022-11-27] MEDS: GABAPENTIN 300 MG CAP PO SCH ×3 (07:39→20:37)
[2022-11-27] MEDS: POTASSIUM CHLORIDE 10MEQ SR TABLET PO SCH (07:40)
[2022-11-27] MEDS: ASPIRIN 81MG ENTERIC TABLET PO SCH (07:40)
[2022-11-27] MEDS: ACETAMINOPHEN 500 MG TAB PO SCH ×3 (07:40→20:37)
[2022-11-27] MEDS: metFORMIN (GLUCOPHAGE) 500MG TAB PO SCH (07:40)
[2022-11-27] MEDS: SUCRALFATE 1 GM TAB PO SCH ×4 (07:40→20:36)
[2022-11-27] MEDS: CLOPIDOGREL 75 MG TAB PO SCH (07:40)
[2022-11-27] MEDS: PANTOPRAZOLE 40MG TAB (PROTONIX) PO SCH ×2 (07:40→20:37)
[2022-11-27] MEDS: ENOXAPARIN 40MG/0.4ML SYRINGE (J1650 PER 10MG) SC SCH (07:41)
[2022-11-27] MEDS: INSULIN LISPRO (NovoLOG) PER UNIT SC SCH ×4 (07:41→20:38)
[2022-11-27] MEDS: REMEDY PHYTOPLEX Z-GUARD PASTE 113GM TUBE (FROM STOREROOM PRODUCT) TOP SCH ×3 (07:42→20:38)
[2022-11-27] MEDS: DOCUSATE SODIUM 100MG CAPSULE PO SCH ×2 (07:42→20:36)
[2022-11-27] MEDS ORDERED: MAALOX 30 ML SUSP *UDC PO PRN (09:00)
[2022-11-27 14:00] VITALS: BP 160/74; TEMP 97.3; O2SAT 96
[2022-11-27 20:00] VITALS: BP 146/68; TEMP 96.9; O2SAT 95
[2022-11-27] MEDS: SENNA 8.6 MG TAB (SENOKOT) PO SCH (20:36)
[2022-11-27] MEDS: DONEPEZIL 5 MG TAB PO SCH (20:37)
[2022-11-27] MEDS: ATORVASTATIN 20 MG TAB PO SCH (20:37)
[2022-11-28 06:00] VITALS: BP 120/64; TEMP 97.1; O2SAT 96
[2022-11-28] MEDS: oxyCODONE 5MG TAB PO SCH (06:14)
[2022-11-28] MEDS: metFORMIN (GLUCOPHAGE) 500MG TAB PO SCH (07:37)
[2022-11-28] MEDS: FUROSEMIDE 40 MG TAB PO SCH (07:37)
[2022-11-28] MEDS: ACETAMINOPHEN 500 MG TAB PO SCH ×3 (07:37→20:00)
[2022-11-28] MEDS: CLOPIDOGREL 75 MG TAB PO SCH (07:37)
[2022-11-28] MEDS: POTASSIUM CHLORIDE 10MEQ SR TABLET PO SCH (07:37)
[2022-11-28] MEDS: ENOXAPARIN 40MG/0.4ML SYRINGE (J1650 PER 10MG) SC SCH (07:38)
[2022-11-28] MEDS: PANTOPRAZOLE 40MG TAB (PROTONIX) PO SCH ×2 (07:38→19:59)
[2022-11-28] MEDS: ASPIRIN 81MG ENTERIC TABLET PO SCH (07:38)
[2022-11-28] MEDS: LIDOCAINE 5% (LIDODERM) PATCH TD SCH (07:38)
[2022-11-28] MEDS: SUCRALFATE 1 GM TAB PO SCH ×4 (07:38→19:59)
[2022-11-28] MEDS: GABAPENTIN 300 MG CAP PO SCH ×3 (07:38→19:59)
[2022-11-28] MEDS: DOCUSATE SODIUM 100MG CAPSULE PO SCH ×2 (07:39→20:01)
[2022-11-28] MEDS: INSULIN LISPRO (NovoLOG) PER UNIT SC SCH ×4 (07:39→20:00)
[2022-11-28] MEDS: REMEDY PHYTOPLEX Z-GUARD PASTE 113GM TUBE (FROM STOREROOM PRODUCT) TOP SCH ×3 (07:39→20:00)
[2022-11-28 14:00] VITALS: BP 141/72; TEMP 97.1; O2SAT 97
[2022-11-28] MEDS: ATORVASTATIN 20 MG TAB PO SCH (19:59)
[2022-11-28] MEDS: DONEPEZIL 5 MG TAB PO SCH (19:59)
[2022-11-28 20:00] VITALS: BP 114/68; TEMP 97.5; O2SAT 99
[2022-11-28] MEDS: SENNA 8.6 MG TAB (SENOKOT) PO SCH (20:01)
[2022-11-29 06:00] VITALS: BP 157/70; TEMP 97.3; O2SAT 98
[2022-11-29] MEDS: oxyCODONE 5MG TAB PO SCH ×2 (06:31→08:21)
[2022-11-29] MEDS: INSULIN LISPRO (NovoLOG) PER UNIT SC SCH ×2 (07:43→11:45)
[2022-11-29] MEDS: metFORMIN (GLUCOPHAGE) 500MG TAB PO SCH (07:44)
[2022-11-29] MEDS: SUCRALFATE 1 GM TAB PO SCH ×2 (07:44→11:45)
[2022-11-29] MEDS: FUROSEMIDE 40 MG TAB PO SCH (08:17)
[2022-11-29] MEDS: ASPIRIN 81MG ENTERIC TABLET PO SCH (08:17)
[2022-11-29] MEDS: DOCUSATE SODIUM 100MG CAPSULE PO SCH (08:17)
[2022-11-29] MEDS: CLOPIDOGREL 75 MG TAB PO SCH (08:18)
[2022-11-29] MEDS: GABAPENTIN 300 MG CAP PO SCH (08:18)
[2022-11-29] MEDS: PANTOPRAZOLE 40MG TAB (PROTONIX) PO SCH (08:18)
[2022-11-29] MEDS: POTASSIUM CHLORIDE 10MEQ SR TABLET PO SCH (08:18)
[2022-11-29] MEDS: ACETAMINOPHEN 500 MG TAB PO SCH (08:18)
[2022-11-29] MEDS: REMEDY PHYTOPLEX Z-GUARD PASTE 113GM TUBE (FROM STOREROOM PRODUCT) TOP SCH (08:20)
[2022-11-29] MEDS: LIDOCAINE 5% (LIDODERM) PATCH TD SCH (08:20)
[2022-11-29] MEDS: ENOXAPARIN 40MG/0.4ML SYRINGE (J1650 PER 10MG) SC SCH (08:20)
[2022-11-29] MEDS ORDERED: METF500T13 PO (08:35)
[2022-11-29] MEDS ORDERED: CLOP75TA2 PO (08:35)
[2022-11-29] MEDS ORDERED: FURO40TA2 PO (08:35)
[2022-11-29] MEDS ORDERED: POTA-149 PO (08:35)
[2022-11-29] MEDS ORDERED: ATOR1TAB21 PO (08:35)
[2022-11-29] MEDS ORDERED: PANT40TA29 PO (08:35)
[2022-11-29] MEDS ORDERED: SUCR1TA PO (08:35)
[2022-11-29] MEDS ORDERED: NITR4TASL SL (08:35)
[2022-11-29] MEDS ORDERED: DONE5TAB82 PO (08:35)
[2022-11-29] MEDS ORDERED: ASPI-161 PO (08:35)
[2022-11-29] MEDS ORDERED: GABA-282 PO (08:35)
[2022-11-29] MEDS ORDERED: OXYC-517 PO (08:35)
== END 2022-11-29 11:45 | disposition home health service (06) | DRG 560 ==
LOC: M PM&R 14:15
PROVIDERS: ADMIT Physical Medicine & Rehabilitation; ATTEND Physical Medicine & Rehabilitation
DX: S72.041D Displaced fracture of base of neck of right femur, subsequent encounter for closed fracture with routine healing (principal); I50.32 Chronic diastolic (congestive) heart failure; I69.351 Hemiplegia and hemiparesis following cerebral infarction affecting right dominant side; E11.51 Type 2 diabetes mellitus with diabetic peripheral angiopathy without gangrene; R26.89 Other abnormalities of gait and mobility; I25.119 Atherosclerotic heart disease of native coronary artery with unspecified angina pectoris; I11.0 Hypertensive heart disease with heart failure; F17.210 Nicotine dependence, cigarettes, uncomplicated; E78.5 Hyperlipidemia, unspecified; K21.9 Gastro-esophageal reflux disease without esophagitis; F03.90 Unspecified dementia, unspecified severity, without behavioral disturbance, psychotic disturbance, mood disturbance, and anxiety; G47.33 Obstructive sleep apnea (adult) (pediatric); E11.40 Type 2 diabetes mellitus with diabetic neuropathy, unspecified; I73.9 Peripheral vascular disease, unspecified; Z66 Do not resuscitate; Z74.09 Other reduced mobility; Z74.1 Need for assistance with personal care; Z95.5 Presence of coronary angioplasty implant and graft; Z95.820 Peripheral vascular angioplasty status with implants and grafts; Z79.82 Long term (current) use of aspirin; Z79.02 Long term (current) use of antithrombotics/antiplatelets; Z79.4 Long term (current) use of insulin; Z79.899 Other long term (current) drug therapy; Z88.8 Allergy status to other drugs, medicaments and biological substances; Z91.041 Radiographic dye allergy status

== ENCOUNTER → 2022-12-10 | Outpatient (CLI) | payer MEDICARE ==
[~2022-12-10] MED LIST changes: +METF500T13 PO; +NITR4TASL SL; +OXYC-517 PO; +SUCR1TA PO
== END ==
LOC: M SOG 09:31
PROVIDERS: ATTEND Physician Assistant
DX: S72.041A Displaced fracture of base of neck of right femur, initial encounter for closed fracture (principal); W18.30XA Fall on same level, unspecified, initial encounter; Y92.009 Unspecified place in unspecified non-institutional (private) residence as the place of occurrence of the external cause

== ENCOUNTER → 2023-01-07 | Outpatient (CLI) | payer MEDICARE | LOC: M SOG 08:10 | PROVIDERS: ATTEND Physician Assistant | DX: S72.041D Displaced fracture of base of neck of right femur, subsequent encounter for closed fracture with routine healing (principal) ==

== ENCOUNTER → 2023-01-30 | Outpatient (CLI) | payer MEDICARE | LOC: M SOG 13:16 | PROVIDERS: ATTEND Physician Assistant | DX: S72.041A Displaced fracture of base of neck of right femur, initial encounter for closed fracture (principal); W18.30XA Fall on same level, unspecified, initial encounter; Y92.009 Unspecified place in unspecified non-institutional (private) residence as the place of occurrence of the external cause ==

== ENCOUNTER → 2023-10-17 | Outpatient (REF) ==
[~2023-10-17] MED LIST changes: -ASPI-161 PO; +ASPI-615 PO
[2023-10-17 17:07] LABS: BASO # 0.1 10^3/uL (0.0-0.2); BASO % 1.1 % (0.0-1.0); EOS # 0.2 10^3/uL (0.0-0.5); HEMATOCRIT 44.6 % (36.0-47.0); HEMOGLOBIN 13.7 g/dl (12.0-15.5); LYMPH # 1.7 10^3/uL (1.5-5.0); LYMPH % 21.1 % (24.0-44.0); MEAN CORPUSCULAR HEMOGLOBIN 24.4 pg (27.0-33.0); MEAN CORPUSCULAR HGB CONC 30.7 g/dl (32.0-36.5); MEAN CORPUSCULAR VOLUME 79.4 fl (80.0-96.0); MONO # 0.9 10^3/uL (0.0-0.8); MONO % 11.9 % (2.0-8.0); NEUTROPHILS % 63.5 % (36.0-66.0); PLATELET COUNT, AUTOMATED 358 10^3/uL (150-450); RED BLOOD COUNT 5.62 10^6/uL (4.00-5.40); WHITE BLOOD COUNT 7.9 10^3/uL (4.0-10.0)
[2023-10-17 17:33] LABS: ALBUMIN 3.1 G/DL (3.2-5.2); BILIRUBIN,TOTAL 0.5 MG/DL (0.3-1.2); CALCIUM LEVEL 8.9 MG/DL (8.3-10.6); CREATININE FOR GFR 1.12 MG/DL (0.55-1.30); GLOMERULAR FILTRATION RATE 50.1 (>39); POTASSIUM SERUM 4.5 MMOL/L (3.5-5.1); TOTAL PROTEIN 6.3 G/DL (5.7-8.2)
== END ==
LOC: SKLAB2 15:56
PROVIDERS: ATTEND Internal Medicine
DX: I95.9 Hypotension, unspecified (principal)

== ENCOUNTER → 2023-10-17 | Outpatient (REF) | LOC: SKLAB2 16:08 | PROVIDERS: ATTEND Internal Medicine | DX: I51.7 Cardiomegaly (principal); I25.10 Atherosclerotic heart disease of native coronary artery without angina pectoris; I70.0 Atherosclerosis of aorta ==

== ENCOUNTER → 2023-10-24 | Outpatient (REF) | payer MEDICARE ==
[2023-10-24 07:38] LABS: HEMATOCRIT 45.5 % (36.0-47.0); HEMOGLOBIN 13.7 g/dl (12.0-15.5); MEAN CORPUSCULAR HEMOGLOBIN 24.6 pg (27.0-33.0); MEAN CORPUSCULAR HGB CONC 30.1 g/dl (32.0-36.5); MEAN CORPUSCULAR VOLUME 81.7 fl (80.0-96.0); PLATELET COUNT, AUTOMATED 343 10^3/uL (150-450); RED BLOOD COUNT 5.57 10^6/uL (4.00-5.40); WHITE BLOOD COUNT 16.4 10^3/uL (4.0-10.0)
[2023-10-24 08:03] LABS: BLOOD UREA NITROGEN 17 MG/DL (9-23); CALCIUM LEVEL 9.1 MG/DL (8.3-10.6); CARBON DIOXIDE LEVEL 36 MMOL/L (20-31); CHLORIDE LEVEL 103 MMOL/L (98-107); CREATININE FOR GFR 0.86 MG/DL (0.55-1.30); GLOMERULAR FILTRATION RATE > 60.0 (>39); GLUCOSE, FASTING 79 MG/DL (74-106); POTASSIUM SERUM 3.4 MMOL/L (3.5-5.1); SODIUM LEVEL 144 MMOL/L (136-145)
== END ==
LOC: SKLAB2 07:00
PROVIDERS: ATTEND Internal Medicine
DX: I10 Essential (primary) hypertension (principal)

== ENCOUNTER → 2023-10-29 | Outpatient (REF) | payer MEDICARE | LOC: SKLAB2 12:42 | PROVIDERS: ATTEND Internal Medicine | DX: D72.829 Elevated white blood cell count, unspecified (principal); I51.7 Cardiomegaly; Z79.899 Other long term (current) drug therapy ==

== ENCOUNTER → 2023-10-31 | Outpatient (REF) | payer MEDICARE ==
[2023-10-31 07:52] LABS: HEMATOCRIT 39.4 % (36.0-47.0); HEMOGLOBIN 12.1 g/dl (12.0-15.5); MEAN CORPUSCULAR HEMOGLOBIN 24.7 pg (27.0-33.0); MEAN CORPUSCULAR HGB CONC 30.7 g/dl (32.0-36.5); MEAN CORPUSCULAR VOLUME 80.6 fl (80.0-96.0); PLATELET COUNT, AUTOMATED 307 10^3/uL (150-450); RED BLOOD COUNT 4.89 10^6/uL (4.00-5.40); WHITE BLOOD COUNT 9.7 10^3/uL (4.0-10.0)
[2023-10-31 08:05] LABS: BLOOD UREA NITROGEN 17 MG/DL (9-23); CALCIUM LEVEL 8.6 MG/DL (8.3-10.6); CARBON DIOXIDE LEVEL 31 MMOL/L (20-31); CHLORIDE LEVEL 106 MMOL/L (98-107); GLOMERULAR FILTRATION RATE > 60.0 (>39); GLUCOSE, FASTING 77 MG/DL (74-106); POTASSIUM SERUM 3.8 MMOL/L (3.5-5.1); SODIUM LEVEL 144 MMOL/L (136-145)
== END ==
LOC: SKLAB2 07:00
PROVIDERS: ATTEND Internal Medicine
DX: E87.6 Hypokalemia (principal)

== ENCOUNTER → 2023-11-07 | Outpatient (REF) | payer MEDICARE | LOC: SKLAB2 14:15 | PROVIDERS: ATTEND Internal Medicine | DX: Z53.8 Procedure and treatment not carried out for other reasons (principal) ==

== ENCOUNTER → 2023-11-07 | Outpatient (CLI) | payer MEDICARE | LOC: M RAD 15:03 | PROVIDERS: ATTEND Internal Medicine | DX: M25.512 Pain in left shoulder (principal) ==

== ENCOUNTER → 2023-11-26 | Outpatient (REF) | payer MEDICARE ==
[2023-11-26 19:44] LABS: BLOOD UREA NITROGEN 22 MG/DL (9-23); CALCIUM LEVEL 8.7 MG/DL (8.3-10.6); CARBON DIOXIDE LEVEL 35 MMOL/L (20-31); CHLORIDE LEVEL 102 MMOL/L (98-107); CREATININE FOR GFR 0.91 MG/DL (0.55-1.30); GLOMERULAR FILTRATION RATE > 60.0 (>39); GLUCOSE, FASTING 90 MG/DL (74-106); POTASSIUM SERUM 4.1 MMOL/L (3.5-5.1); SODIUM LEVEL 140 MMOL/L (136-145)
[2023-11-26 19:47] LABS: BASO # 0.1 10^3/uL (0.0-0.2); BASO % 1.1 % (0.0-1.0); EOS # 0.6 10^3/uL (0.0-0.5); EOS % 6.3 % (0.0-3.0); HEMATOCRIT 37.8 % (36.0-47.0); HEMOGLOBIN 11.8 g/dl (12.0-15.5); LYMPH # 2.6 10^3/uL (1.5-5.0); MEAN CORPUSCULAR HEMOGLOBIN 25.7 pg (27.0-33.0); MEAN CORPUSCULAR HGB CONC 31.2 g/dl (32.0-36.5); MEAN CORPUSCULAR VOLUME 82.2 fl (80.0-96.0); MONO % 10.4 % (2.0-8.0); NEUTROPHILS # 5.6 10^3/uL (1.5-8.5); NEUTROPHILS % 55.9 % (36.0-66.0); PLATELET COUNT, AUTOMATED 291 10^3/uL (150-450)
== END ==
LOC: SKLAB2 13:36
PROVIDERS: ATTEND Internal Medicine
DX: R41.82 Altered mental status, unspecified (principal)

== ENCOUNTER → 2023-12-01 | Outpatient (REF) | payer MEDICARE ==
[2023-12-01 18:35] LABS: BASO # 0.1 10^3/uL (0.0-0.2); BASO % 1.5 % (0.0-1.0); EOS # 0.6 10^3/uL (0.0-0.5); EOS % 5.8 % (0.0-3.0); HEMATOCRIT 39.2 % (36.0-47.0); HEMOGLOBIN 12.4 g/dl (12.0-15.5); LYMPH # 2.3 10^3/uL (1.5-5.0); LYMPH % 23.5 % (24.0-44.0); MEAN CORPUSCULAR HEMOGLOBIN 25.9 pg (27.0-33.0); MEAN CORPUSCULAR HGB CONC 31.6 g/dl (32.0-36.5); MEAN CORPUSCULAR VOLUME 81.8 fl (80.0-96.0); MONO # 1.1 10^3/uL (0.0-0.8); MONO % 11.4 % (2.0-8.0); NEUTROPHILS # 5.5 10^3/uL (1.5-8.5); NEUTROPHILS % 57.7 % (36.0-66.0); PLATELET COUNT, AUTOMATED 287 10^3/uL (150-450); RED BLOOD COUNT 4.79 10^6/uL (4.00-5.40); WHITE BLOOD COUNT 9.6 10^3/uL (4.0-10.0)
[2023-12-01 19:06] LABS: BLOOD UREA NITROGEN 17 MG/DL (9-23); CARBON DIOXIDE LEVEL 32 MMOL/L (20-31); CHLORIDE LEVEL 102 MMOL/L (98-107); CREATININE FOR GFR 0.93 MG/DL (0.55-1.30); GLOMERULAR FILTRATION RATE > 60.0 (>39); GLUCOSE, FASTING 126 MG/DL (74-106); POTASSIUM SERUM 3.7 MMOL/L (3.5-5.1); SODIUM LEVEL 139 MMOL/L (136-145)
== END ==
LOC: SKLAB2 07:00
PROVIDERS: ATTEND Internal Medicine
DX: L03.116 Cellulitis of left lower limb (principal)

== ENCOUNTER → 2023-12-04 | Outpatient (REF) | payer MEDICARE ==
[2023-12-04 11:21] LABS: HEMATOCRIT 42.3 % (36.0-47.0); HEMOGLOBIN 13.1 g/dl (12.0-15.5); MEAN CORPUSCULAR HEMOGLOBIN 25.6 pg (27.0-33.0); MEAN CORPUSCULAR VOLUME 82.6 fl (80.0-96.0); PLATELET COUNT, AUTOMATED 316 10^3/uL (150-450); RED BLOOD COUNT 5.12 10^6/uL (4.00-5.40); WHITE BLOOD COUNT 10.9 10^3/uL (4.0-10.0)
[2023-12-04 11:56] LABS: ALBUMIN 3.4 G/DL (3.2-5.2); ALKALINE PHOSPHATASE 91 U/L (46-116); ALT/SGPT 26 U/L (7.0-40); AST/SGOT 26 U/L (<34); BILIRUBIN,TOTAL 0.4 MG/DL (0.3-1.2); BLOOD UREA NITROGEN 16 MG/DL (9-23); CALCIUM LEVEL 9.6 MG/DL (8.3-10.6); CARBON DIOXIDE LEVEL 30 MMOL/L (20-31); CHLORIDE LEVEL 103 MMOL/L (98-107); CREATININE FOR GFR 0.94 MG/DL (0.55-1.30); GLOMERULAR FILTRATION RATE > 60.0 (>39); GLUCOSE, FASTING 163 MG/DL (74-106); POTASSIUM SERUM 4.1 MMOL/L (3.5-5.1); SODIUM LEVEL 142 MMOL/L (136-145); TOTAL PROTEIN 7.1 G/DL (5.7-8.2)
== END ==
LOC: SKLAB2 07:00
PROVIDERS: ATTEND Internal Medicine
DX: I10 Essential (primary) hypertension (principal)

== ENCOUNTER → 2023-12-15 | Outpatient (REF) | payer MEDICARE ==
[~2023-12-15] MED LIST changes: +ACET1TAB55 PO; +ARIC1TAB PO; +ASPE4PAD2 TOP; +ATIV1TAB7 PO; +ATOR80TA59 PO; +BISA10SU4 PR; +BUME1TAB3 PO; +DULA3PEN SQ; +ELIQ5TAB PO; +GLUC1KIT IM; +GUAI600T54 PO; +L. A1TAB6 PO; +LEVO25TA5 PO; +LIDO5TD TD; +MAGN400O57 PO; +MECL-136 PO; +METO1TAB87 PO; +MORP1SOL SL; +ONDA-83 PO; +PANT20TA51 PO; +POTA-151 PO; +RISATAB3 PO; +SENN-186 PO; +TRAN1DIS4 TOP; +TRAZ-252 PO
[2023-12-15 14:54] LABS: ALBUMIN 3.2 G/DL (3.2-5.2); ALKALINE PHOSPHATASE 91 U/L (46-116); ALT/SGPT 36 U/L (7.0-40); AST/SGOT 49 U/L (<34); BILIRUBIN,TOTAL 0.7 MG/DL (0.3-1.2); BLOOD UREA NITROGEN 23 MG/DL (9-23); CALCIUM LEVEL 8.6 MG/DL (8.3-10.6); CARBON DIOXIDE LEVEL 23 MMOL/L (20-31); CHLORIDE LEVEL 99 MMOL/L (98-107); CREATININE FOR GFR 0.83 MG/DL (0.55-1.30); GLOMERULAR FILTRATION RATE > 60.0 (>39); GLUCOSE, FASTING 287 MG/DL (74-106); POTASSIUM SERUM 3.7 MMOL/L (3.5-5.1); SODIUM LEVEL 135 MMOL/L (136-145); TOTAL PROTEIN 6.8 G/DL (5.7-8.2)
[2023-12-15 14:57] LABS: BASO # 0.1 10^3/uL (0.0-0.2); BASO % 0.6 % (0.0-1.0); HEMATOCRIT 37.7 % (36.0-47.0); HEMOGLOBIN 11.9 g/dl (12.0-15.5); LYMPH # 1.1 10^3/uL (1.5-5.0); LYMPH % 7.7 % (24.0-44.0); MEAN CORPUSCULAR HEMOGLOBIN 26.3 pg (27.0-33.0); MEAN CORPUSCULAR HGB CONC 31.6 g/dl (32.0-36.5); MEAN CORPUSCULAR VOLUME 83.2 fl (80.0-96.0); MONO # 0.9 10^3/uL (0.0-0.8); MONO % 5.9 % (2.0-8.0); NEUTROPHILS # 12.4 10^3/uL (1.5-8.5); NEUTROPHILS % 85.4 % (36.0-66.0); PLATELET COUNT, AUTOMATED 241 10^3/uL (150-450); RED BLOOD COUNT 4.53 10^6/uL (4.00-5.40); WHITE BLOOD COUNT 14.5 10^3/uL (4.0-10.0)
== END ==
LOC: SKLAB2 12:15
PROVIDERS: ATTEND Internal Medicine
DX: U07.1 COVID-19 (principal); Z79.899 Other long term (current) drug therapy

== ENCOUNTER 2023-12-16 11:10 | Inpatient (IN) | payer MEDICARE ==
[~2023-12-16 11:10] MED LIST changes: -ACET1TAB55 PO; -ARIC1TAB PO; -ASPE4PAD2 TOP; -ATIV1TAB7 PO; -ATOR80TA59 PO; -BISA10SU4 PR; -BUME1TAB3 PO; -DULA3PEN SQ; -ELIQ5TAB PO; -GLUC1KIT IM; -GUAI600T54 PO; -L. A1TAB6 PO; -LEVO25TA5 PO; -LIDO5TD TD; -MAGN400O57 PO; -MECL-136 PO; -METO1TAB87 PO; -MORP1SOL SL; -ONDA-83 PO; -PANT20TA51 PO; -POTA-151 PO; -RISATAB3 PO; -SENN-186 PO; -TRAN1DIS4 TOP; -TRAZ-252 PO
[2023-12-16 11:20] VITALS: TEMP 97.6
[2023-12-16] MEDS ORDERED: LEVO25TA5 PO (12:49)
[2023-12-16] MEDS ORDERED: ATOR80TA59 PO (12:49)
[2023-12-16] MEDS ORDERED: ARIC1TAB PO (12:49)
[2023-12-16] MEDS ORDERED: RISATAB3 PO (12:54)
[2023-12-16] MEDS ORDERED: L. A1TAB6 PO (12:54)
[2023-12-16] MEDS ORDERED: SENN-186 PO (12:54)
[2023-12-16] MEDS ORDERED: PANT20TA51 PO (12:54)
[2023-12-16] MEDS ORDERED: ASPE4PAD2 TOP (12:54)
[2023-12-16] MEDS ORDERED: ELIQ5TAB PO (13:01)
[2023-12-16] MEDS ORDERED: TRAZ-252 PO (13:01)
[2023-12-16] MEDS ORDERED: METO1TAB87 PO (13:01)
[2023-12-16] MEDS ORDERED: DULA3PEN SQ (13:01)
[2023-12-16] MEDS ORDERED: BUME1TAB3 PO (13:01)
[2023-12-16] MEDS ORDERED: POTA-151 PO (13:04)
[2023-12-16] MEDS ORDERED: MECL-136 PO (13:12)
[2023-12-16] MEDS ORDERED: ONDA-83 PO (13:12)
[2023-12-16] MEDS ORDERED: GUAI600T54 PO (13:12)
[2023-12-16] MEDS ORDERED: ACET1TAB55 PO (13:12)
[2023-12-16] MEDS ORDERED: BISA10SU4 PR (13:12)
[2023-12-16] MEDS ORDERED: MAGN400O57 PO (13:12)
[2023-12-16] MEDS ORDERED: GLUC1KIT IM (13:12)
[2023-12-16] MEDS ORDERED: HOME MED LIST COMPLETE! XX SCH ×2 (13:15)
[2023-12-16 13:17] LABS: BASO % 0.1 % (0.0-1.0); HEMATOCRIT 38.4 % (36.0-47.0); HEMOGLOBIN 12.3 g/dl (12.0-15.5); LYMPH # 1.4 10^3/uL (1.5-5.0); LYMPH % 6.1 % (24.0-44.0); MEAN CORPUSCULAR HEMOGLOBIN 26.4 pg (27.0-33.0); MEAN CORPUSCULAR VOLUME 82.4 fl (80.0-96.0); MONO # 1.2 10^3/uL (0.0-0.8); MONO % 5.1 % (2.0-8.0); NEUTROPHILS # 20.6 10^3/uL (1.5-8.5); NEUTROPHILS % 88.1 % (36.0-66.0); PLATELET COUNT, AUTOMATED 188 10^3/uL (150-450); RED BLOOD COUNT 4.66 10^6/uL (4.00-5.40); WHITE BLOOD COUNT 23.4 10^3/uL (4.0-10.0)
[2023-12-16 13:29] LABS: INR 1.7; PARTIAL THROMBOPLASTIN TIME 38.9 SECONDS (24.8-34.2); PROTHROMBIN TIME 19.4 SECONDS (12.5-14.5)
[2023-12-16 13:47] LABS: CPK CREATINE PHOSPHOKINASE 407 U/L (34-145)
[2023-12-16 13:48] LABS: CK-MB VALUE MASS 1.9 NG/ML (<3.6); MB/CK RELATIVE INDEX 0.46 (< OR =4)
[2023-12-16 13:49] LABS: ALBUMIN 2.9 G/DL (3.2-5.2); ALKALINE PHOSPHATASE 70 U/L (46-116); ALT/SGPT 27 U/L (7.0-40); AST/SGOT 49 U/L (<34); BILIRUBIN,DIRECT 0.3 MG/DL (<0.4); BILIRUBIN,TOTAL 0.6 MG/DL (0.3-1.2); BLOOD UREA NITROGEN 31 MG/DL (9-23); CALCIUM LEVEL 8.6 MG/DL (8.3-10.6); CARBON DIOXIDE LEVEL 28 MMOL/L (20-31); CHLORIDE LEVEL 103 MMOL/L (98-107); CREATININE FOR GFR 0.82 MG/DL (0.55-1.30); GLOMERULAR FILTRATION RATE > 60.0 (>39); GLUCOSE, FASTING 226 MG/DL (74-106); POTASSIUM SERUM 3.8 MMOL/L (3.5-5.1); SODIUM LEVEL 139 MMOL/L (136-145); TOTAL PROTEIN 6.5 G/DL (5.7-8.2)
[2023-12-16 13:52] LABS: FREE T4 1.13 NG/DL (0.89-1.76); THYROID STIMULATING HORMONE 2.675 uIU/ML (0.55-4.78)
[2023-12-16 14:15] LABS: RSV AMPLIFICATION NEGATIVE (NEGATIVE)
[2023-12-16] MEDS: cefTRIAXone SOD 1 GM in D5W MINI-BAG PLUS 50 ML IV ONE (14:18)
[2023-12-16] MEDS ORDERED: SCOPOLAMINE 1MG TRANSDERMAL PATCH TOP PRN (14:45)
[2023-12-16] MEDS ORDERED: ONDANSETRON 4MG 2ML VIAL IV PRN (14:45)
[2023-12-16 16:00] VITALS: BP 122/64
[2023-12-16 17:40] VITALS: O2SAT 95
[2023-12-17] MEDS: LIDOCAINE 5% (LIDODERM) PATCH TD SCH (11:45)
[2023-12-17] MEDS: MORPHINE 10MG/0.5ML ORAL CONCENTRATE SOLUTION U/D SL PRN (11:45)
[2023-12-18] MEDS: LORazepam 2 MG/ML 1ML VIAL IV PRN (01:09)
[2023-12-18] MEDS: LORazepam 1 MG TAB PO PRN (02:11)
[2023-12-18] MEDS ORDERED: TRAN1DIS4 TOP (11:32)
[2023-12-18] MEDS ORDERED: MORP1SOL SL (11:32)
[2023-12-18] MEDS ORDERED: LIDO5TD TD (11:32)
[2023-12-18] MEDS ORDERED: ATIV1TAB7 PO (11:32)
== END 2023-12-18 14:10 | DRG 951 ==
LOC: EDBD 11:10 → M ED 11:10 → M ED INP 14:45 → EEVIPCON 14:45 → M MS5PR 19:00
PROVIDERS: ADMIT Student in an Organized Health Care Education/Training Program; ATTEND Student in an Organized Health Care Education/Training Program
DX: Z51.5 Encounter for palliative care (principal); I21.4 Non-ST elevation (NSTEMI) myocardial infarction; U07.1 COVID-19; I63.9 Cerebral infarction, unspecified; I25.110 Atherosclerotic heart disease of native coronary artery with unstable angina pectoris; N39.0 Urinary tract infection, site not specified; E78.5 Hyperlipidemia, unspecified; I11.0 Hypertensive heart disease with heart failure; E11.51 Type 2 diabetes mellitus with diabetic peripheral angiopathy without gangrene; J44.9 Chronic obstructive pulmonary disease, unspecified; I50.9 Heart failure, unspecified; K21.9 Gastro-esophageal reflux disease without esophagitis; B96.20 Unspecified Escherichia coli [E. coli] as the cause of diseases classified elsewhere; M19.90 Unspecified osteoarthritis, unspecified site; Z66 Do not resuscitate; Z96.651 Presence of right artificial knee joint; Z96.641 Presence of right artificial hip joint; Z91.040 Latex allergy status; Z88.8 Allergy status to other drugs, medicaments and biological substances; Z95.5 Presence of coronary angioplasty implant and graft; Z79.899 Other long term (current) drug therapy

== ENCOUNTER → 2023-12-16 | Outpatient (REF) | payer MEDICARE | LOC: SKLAB2 07:40 | PROVIDERS: ATTEND Internal Medicine | DX: U07.1 COVID-19 (principal) ==